=== PATIENT | female | born 1960 | race Caucasian/White ===

== ENCOUNTER 2019-07-07 02:31 | Emergency (ER) | payer MEDICAID, SELFPAY | END 2019-07-07 05:11 | disposition home or self-care (01) | PROVIDERS: Emergency Provider Emergency Medicine; Family Provider Family Medicine; Visit Provider Emergency Medicine | DX: S00.83XA Contusion of other part of head, initial encounter (principal); S00.93XA Contusion of unspecified part of head, initial encounter; Y04.8XXA Assault by other bodily force, initial encounter; Y92.009 Unspecified place in unspecified non-institutional (private) residence as the place of occurrence of the external cause; I10 Essential (primary) hypertension; E78.5 Hyperlipidemia, unspecified; E11.9 Type 2 diabetes mellitus without complications; J45.909 Unspecified asthma, uncomplicated; Z87.891 Personal history of nicotine dependence | CPT/HCPCS: 70450; 70486; 71045; 72125; 80053; 81001; 85025; 93005; 96374; 96375; 99284; J1885; J2405 ==

== ENCOUNTER → 2019-07-27 08:48 | Outpatient (BNVA) | payer MEDICAID, SELFPAY | PROVIDERS: Family Provider Family Medicine; PCP Family Medicine; Visit Provider Nurse Practitioner | DX: F33.2 Major depressive disorder, recurrent severe without psychotic features (principal) | CPT/HCPCS: 99213 ==

== ENCOUNTER → 2019-08-15 15:54 | Outpatient (BNVA) | payer MEDICAID, SELFPAY | PROVIDERS: Family Provider Family Medicine; PCP Family Medicine; Visit Provider Social Worker | DX: F33.2 Major depressive disorder, recurrent severe without psychotic features (principal); F15.20 Other stimulant dependence, uncomplicated | CPT/HCPCS: 90834 ==

== ENCOUNTER → 2019-09-07 10:22 | Outpatient (BNVA) | payer MEDICAID, SELFPAY | PROVIDERS: Family Provider Family Medicine; PCP Family Medicine; Visit Provider Nurse Practitioner | DX: F33.2 Major depressive disorder, recurrent severe without psychotic features (principal) | CPT/HCPCS: 90832; 99214 ==

== ENCOUNTER → 2019-09-18 13:51 | Outpatient (BNVA) | payer MEDICAID, SELFPAY | PROVIDERS: Family Provider Family Medicine; PCP Family Medicine; Visit Provider Social Worker | DX: F33.2 Major depressive disorder, recurrent severe without psychotic features (principal); F15.21 Other stimulant dependence, in remission | CPT/HCPCS: 90834 ==

== ENCOUNTER 2019-10-18 01:26 | Observation (INO) | payer MEDICAID, SELFPAY ==
[2019-10-18] VITALS (9 sets, daily range): BP systolic 98–154; BP diastolic 66–77; PULSE 80–91; RESP 16–22; TEMP 36.5–37; O2SAT 94–99; BMI 31.1
--- NOTE | 2019-10-18 01:31 | CTR_ITS ---
PROCEDURE INFORMATION: Exam: CT Head Without Contrast Exam date and time: 10/18/2019 1:34 AM Age: 59 years old Clinical indication: Injury or trauma; Fall; Initial encounter; Blunt trauma (contusions or hematomas); Consciousness not specified TECHNIQUE: Imaging protocol: Computed tomography of the head without contrast. Total DLP: 845.81 mGy-cm Radiation optimization: All CT scans at this facility use at least one of these dose optimization techniques: automated exposure control; mA and/or kV adjustment per patient size (includes targeted exams where dose is matched to clinical indication); or iterative reconstruction. COMPARISON: CT head wo con* [id number] 07/07/2019 3:51 AM FINDINGS: Brain: Mild hypodensities in the periventricular/deep white matter suggest chronic microvascular ischemia. Ventricles: No hydrocephalus. Bones/joints: No acute fracture. Sinuses: Unremarkable. No acute sinusitis. Mastoid air cells: No significant mastoid effusion. Soft tissues: Unremarkable. CT/CT head wo con* [id number] IMPRESSION: No acute intracranial abnormality. Radiation Dose CTDIVOL = (mGy): DLP = 845.81 (mGy-cm)
--- NOTE | 2019-10-18 01:31 | XR_ITS ---
WS: [id number] CHEST XRAY TECHNIQUE: Portable chest. CLINICAL INFORMATION: injury COMPARISON: July 07, 2019 FINDINGS: Heart: Cardiomegaly. Lungs: Lungs are clear. No consolidation or pleural effusion. Bones: Normal visualized bony structures. XR/XR chest 1V portable [id number] IMPRESSION: Cardiomegaly. No acute chest findings.
--- NOTE | 2019-10-18 01:33 | ECG_ITS ---
Measurements Intervals [place] Rate: 79 P: 55 MA: 188 QRS: 19 QRSD: 83 T: 57 QT: 409 QTc: 470 SINUS RHYTHM LOW QRS VOLTAGE IN PRECORDIAL LEADS [QRS DEFLECTION < 1.0 mV IN CHEST LEADS] SEPTAL MYOCARDIAL INFARCTION , OF INDETERMINATE AGE [40+ ms Q WAVE IN V1/V2] Compared to ECG 07/07/2019 03:01:39 No significant changes Electronically Signed On 10-18-2019 18:02:24 CDT by Noris French M.D. [email or web address]
--- NOTE | 2019-10-18 01:33 | W.ED.SYNCOPE ---
HPI - Syncope General: Chief Complaint: Chest Pain Stated Complaint: HYPOTENSION Time Seen by Provider: 10/18/19 01:31 Source: patient and EMS Mode of arrival: EMS Limitations: no limitations History of Present Illness: HPI narrative: 59-year-old female has a history of high blood pressure and is on multiple blood pressure meds at home states she has been feeling weak throughout the evening. Patient states she stood up earlier today and passed out and struck her head and her left chest. She had left chest pain since then. Patient called EMS due to weakness and was found to be hypotensive with blood pressure in the 80s. Patient given IV fluids and push dose pressure epinephrine by EMS. Blood pressure now is 120s. She states she feels improved but does have left-sided chest pain after her fall. She took her blood pressure medicines tonight. She has had nausea but no vomiting. MD complaint: loss of consciousness and felt faint Associated symptoms: Reports chest pain; Deny abdominal pain, fever(s) or nausea Review of Systems Const: Denies: fever, chills, body aches or change in appetite Eyes: Denies: blurry vision or eye discomfort ENMT: Denies: throat pain or dental pain Card: Reports: chest pain Resp: Denies: shortness of breath GI: Denies: abdominal pain, nausea, vomiting or diarrhea : Denies: painful urination Musc: Denies: neck pain or back pain Skin/Breast: Denies: rash Neuro: Reports: frequent falls Psych: Denies: depression Alton/Lymph: Denies: easy bruising All/Imm: Denies: hives [facility] [place] [facility] PFSH: Medical History (Updated 10/18/19 @ 03:56 by Melania Lopez MD) Bipolar 1 disorder, depressed Hepatitis C Hypertension Major depressive disorder, recurrent severe without psychotic features Other stimulant dependence, in remission Recurrent pancreatitis Type 2 diabetes mellitus Surgical History (Updated 10/18/19 @ 03:56 by Melania Lopez MD) History of appendectomy Family History (Updated 10/18/19 @ 03:57 by Melania Lopez MD) Mother Clotting disorder Father Diabetes Social History (Updated 10/18/19 @ 04:29 by Melania Lopez MD) Smoking and tobacco status: former smoker Alcohol intake: never Substance/Drug Use: former Household members: other Details: She takes care of her grandsons Housing: House Physical Exam Const: COMMON NORMALS: no apparent distress, oriented x3 and healthy appearing HENMT: COMMON NORMALS: normocephalic and head/scalp atraumatic HEAD & SCALP: normocephalic and atraumatic Eye: COMMON NORMALS: PERRL and EOMs intact bilaterally PUPIL: Yes PERRL Neck/C-Spine: COMMON NORMALS: full ROM and supple Chest: COMMONS NORMALS: inspection of chest normal OTHER: point tender to left ches Resp: COMMON NORMALS: normal respiratory effort, no retractions, no use of accessory muscles and clear to auscultation bilaterally AUSCULTATION: clear to auscultation bilaterally Cardio: COMMON NORMALS: regular rate, regular rhythm and no murmurs RATE: regular rate RHYTHM: regular rhythm GI: COMMON NORMALS: normal to inspection, nondistended, normoactive bowel sounds, soft to palpation, non-tender and no masses PALPATION: Yes soft Extremity: COMMON NORMALS: normal to inspection and full ROM Neuro: COMMON NORMALS: oriented x3, moves all extremities and no focal motor deficits Psych: COMMON NORMALS: mental status grossly normal, thought process normal and cooperative THOUGHT PROCESS: normal thought process Skin: COMMON NORMALS: no rashes or lesions noted and no wounds GENERAL SKIN EXAM: no rashes or lesions noted Course Vital Signs: Vital signs: Vital Signs Temperature 97.7 F 10/18/19 04:30 Pulse Rate 84 10/18/19 04:36 Respiratory Rate 16 10/18/19 04:36 Blood Pressure 113/66 10/18/19 04:36 Pulse Oximetry 94 10/18/19 04:36 MDM - Syncope MDM Narrative: Medical decision making narrative: Heidi presents here after a syncopal episode. This is likely due to hypotension. Patient has slight dehydration. Her hypotension could be related to her medicines as well. Patient has slight increase in lactate and white count will admit for observation and follow. She has no signs of infectious cause at this time. Lab Data: Labs: Lab Results 10/18/19 10/18/19 10/18/19 Range/Units 00:56 00:56 00:56 WBC 14.9 H (4.0-10.0) 10^3/ uL RBC 4.53 (4.1-5.3) 10^6/u L Hgb 14.0 (11.5-15.3) g/dL Hct 40.4 (37.0-47.0) % MCV 89.2 (81-99) fL MCH 30.9 (28.0-34.0) pg MCHC 34.7 (30.0-36.0) g/dL RDW 11.9 L (12.1-15.1) % Plt Count 351 (130-400) 10^3/c mm MPV 9.9 (7.4-10.4) fL Neut % (Auto) 56.4 % Lymph % (Auto) 32.3 % [place] % (Auto) 7.6 % Eos % (Auto) 1.6 % Baso % (Auto) 0.5 % Neut # (Auto) 8.4 H (1.8-7.7) 10^3/u L Lymph # (Auto) 4.8 (0.8-4.8) 10^3/u L Hampton # (Auto) 1.1 H (0.2-0.9) 10^3/u L Eos # (Auto) 0.2 (0.0-0.8) 10^3/u L Baso # (Auto) 0.1 (0.0-0.1) 10^3/u L Nucleated RBC % (a uto) 0 % Nucleated RBCs # 0.0 /100WBC PT 13.50 H (10.5-13.3) SECO NDS INR 1.00 (0.8-1.2) Sodium 134 L (136-145) mmol/L Potassium 4.0 (3.5-5.1) mmol/L Chloride 92 L (98-107) mmol/L Carbon Dioxide 25 (22-29) mmol/L Anion Gap 21.0 H (5-19) BUN 25 H (6-20) mg/dL Creatinine 1.4 H (0.5-0.9) mg/dL GFR Calculation 38.8 L (90-130) mL/min Glucose 141 H (65-115) mg/dL Calculated Osmolal ity 277 L (285-295) mOsm/k g Lactate (0.5-2.2) mmol/L Calcium 10.7 H (8.5-10.5) mg/dL Total Bilirubin 0.2 (0.15-1.2) mg/dL AST 21 (0-32) U/L ALT 20 (0-33) U/L Alkaline Phosphata se 87 (35-105) IU/L Troponin T Baselin e (0-10) ng/mL Troponin T 120 Min qawalangin (0-10) ng/mL Delta Troponin T (0-10) ABS# Total Protein 7.9 (6.6-8.7) g/dL Albumin 4.7 (3.5-5.2) g/dL Globulin 3.2 (1.3-4.6) g/dL Lipase 167 H (13-60) U/L Urine Color (Yellow) Urine Appearance (CLEAR) Urine pH (5-7) Ur Specific Gravit y (1.005-1.030) Urine Protein (Negative) Urine Glucose (UA) (Normal) Urine Ketones (Negative) Urine Blood (Negative) Urine Nitrate (Negative) Urine Bilirubin (NEGATIVE) Urine Urobilinogen (Negative) mg/dL Ur Leukocyte Viri ase (Negative) Urine RBC (0-2) /hpf Urine WBC (0-5) /hpf Ur Squamous Epith Cells (0-5) Urine Bacteria (NONE) Urine Yeast 10/18/19 10/18/19 10/18/19 Range/Units 00:56 02:00 03:08 WBC (4.0-10.0) 10^3/ uL RBC (4.1-5.3) 10^6/u L Hgb (11.5-15.3) g/dL Hct (37.0-47.0) % MCV (81-99) fL MCH (28.0-34.0) pg MCHC (30.0-36.0) g/dL RDW (12.1-15.1) % Plt Count (130-400) 10^3/c mm MPV (7.4-10.4) fL Neut % (Auto) % Lymph % (Auto) % [place] % (Auto) % Eos % (Auto) % Baso % (Auto) % Neut # (Auto) (1.8-7.7) 10^3/u L Lymph # (Auto) (0.8-4.8) 10^3/u L [place] # (Auto) (0.2-0.9) 10^3/u L Eos # (Auto) (0.0-0.8) 10^3/u L Baso # (Auto) (0.0-0.1) 10^3/u L Nucleated RBC % (a uto) % Nucleated RBCs # /100WBC PT (10.5-13.3) SECO NDS INR (0.8-1.2) Sodium (136-145) mmol/L Potassium (3.5-5.1) mmol/L Chloride (98-107) mmol/L Carbon Dioxide (22-29) mmol/L Anion Gap (5-19) BUN (6-20) mg/dL Creatinine (0.5-0.9) mg/dL GFR Calculation (90-130) mL/min Glucose (65-115) mg/dL Calculated Osmolal ity (285-295) mOsm/k g Lactate 3.1 H (0.5-2.2) mmol/L Calcium (8.5-10.5) mg/dL Total Bilirubin (0.15-1.2) mg/dL AST (0-32) U/L ALT (0-33) U/L Alkaline Phosphata se (35-105) IU/L Troponin T Baselin e 15 H (0-10) ng/mL Troponin T 120 Min q[place]angin 9.54 (0-10) ng/mL Delta Troponin T -5.46 L (0-10) ABS# Total Protein (6.6-8.7) g/dL Albumin (3.5-5.2) g/dL Globulin (1.3-4.6) g/dL Lipase (13-60) U/L Urine Color (Yellow) Urine Appearance (CLEAR) Urine pH (5-7) Ur Specific Gravit y (1.005-1.030) Urine Protein (Negative) Urine Glucose (UA) (Normal) Urine Ketones (Negative) Urine Blood (Negative) Urine Nitrate (Negative) Urine Bilirubin (NEGATIVE) Urine Urobilinogen (Negative) mg/dL Ur Leukocyte Viri ase (Negative) Urine RBC (0-2) /hpf Urine WBC (0-5) /hpf Ur Squamous Epith Cells (0-5) Urine Bacteria (NONE) Urine Yeast 10/18/19 Range/Units 03:20 WBC (4.0-10.0) 10^3/ uL RBC (4.1-5.3) 10^6/u L Hgb (11.5-15.3) g/dL Hct (37.0-47.0) % MCV (81-99) fL MCH (28.0-34.0) pg MCHC (30.0-36.0) g/dL RDW (12.1-15.1) % Plt Count (130-400) 10^3/c mm MPV (7.4-10.4) fL Neut % (Auto) % Lymph % (Auto) % [place] % (Auto) % Eos % (Auto) % Baso % (Auto) % Neut # (Auto) (1.8-7.7) 10^3/u L Lymph # (Auto) (0.8-4.8) 10^3/u L [place] # (Auto) (0.2-0.9) 10^3/u L Eos # (Auto) (0.0-0.8) 10^3/u L Baso # (Auto) (0.0-0.1) 10^3/u L Nucleated RBC % (a uto) % Nucleated RBCs # /100WBC PT (10.5-13.3) SECO NDS INR (0.8-1.2) Sodium (136-145) mmol/L Potassium (3.5-5.1) mmol/L Chloride (98-107) mmol/L Carbon Dioxide (22-29) mmol/L Anion Gap (5-19) BUN (6-20) mg/dL Creatinine (0.5-0.9) mg/dL GFR Calculation (90-130) mL/min Glucose (65-115) mg/dL Calculated Osmolal ity (285-295) mOsm/k g Lactate (0.5-2.2) mmol/L Calcium (8.5-10.5) mg/dL Total Bilirubin (0.15-1.2) mg/dL AST (0-32) U/L ALT (0-33) U/L Alkaline Phosphata se (35-105) IU/L Troponin T Baselin e (0-10) ng/mL Troponin T 120 Min q[place]al[place]in (0-10) ng/mL Delta Troponin T (0-10) ABS# Total Protein (6.6-8.7) g/dL Albumin (3.5-5.2) g/dL Globulin (1.3-4.6) g/dL Lipase (13-60) U/L Urine Color Yellow (Yellow) Urine Appearance Clear (CLEAR) Urine pH 5 (5-7) Ur Specific Gravit y 1.010 (1.005-1.030) Urine Protein 1+ H (Negative) Urine Glucose (UA) 1+ (Normal) Urine Ketones Negative (Negative) Urine Blood Neg (Negative) Urine Nitrate Negative (Negative) Urine Bilirubin Neg (NEGATIVE) Urine Urobilinogen Norm (Negative) mg/dL Ur Leukocyte Viri ase Trace H (Negative) Urine RBC 0-4 H (0-2) /hpf Urine WBC 0-4 H (0-5) /hpf Ur Squamous Epith Cells 25-40 H (0-5) Urine Bacteria 1+ H (NONE) Urine Yeast 1+ H Imaging Data^: CT Head: Radiologist's impression: Ordering Provider/Ordering MD: Jenaro Irwin MD Date of Service: 10/18/19 Procedure(s): CT head wo con* [id number] Accession Number(s): [id number] Report Number: [id number] PROCEDURE INFORMATION: Exam: CT Head Without Contrast Exam date and time: 10/18/2019 1:34 AM Age: 59 years old Clinical indication: Injury or trauma; Fall; Initial encounter; Blunt trauma (contusions or hematomas); Consciousness not specified TECHNIQUE: Imaging protocol: Computed tomography of the head without contrast. Total DLP: 845.81 mGy-cm Radiation optimization: All CT scans at this facility use at least one of these dose optimization techniques: automated exposure control; mA and/or kV adjustment per patient size (includes targeted exams where dose is matched to clinical indication); or iterative reconstruction. COMPARISON: CT head wo con* [id number] 07/07/2019 3:51 AM FINDINGS: Brain: Mild hypodensities in the periventricular/deep white matter suggest chronic microvascular ischemia. Ventricles: No hydrocephalus. Bones/joints: No acute fracture. Sinuses: Unremarkable. No acute sinusitis. Mastoid air cells: No significant mastoid effusion. Soft tissues: Unremarkable. CT/CT head wo con* [id number] IMPRESSION: No acute intracranial abnormality. CXR: My impression: no acute abnormality EKG Data^: EKG 1: Attestation: I personally reviewed and interpreted this EKG as follows: EKG interpretation date: 10/18/19 EKG interpretation time: 01:42 Interpretation: nsr hr [address] or t wave abnormalities qrs 83 qtc 444 EKG 2: Attestation: I personally reviewed and interpreted this EKG as follows: EKG interpretation date: 10/18/19 EKG interpretation time: 03:40 Interpretation: nsr hr [address] or t wave abnormalities qrs 81 qtc 419 Discharge Plan Discharge Patient Disposition: Home, Self-Care Clinical Impression: Syncope Qualifiers: Syncope type: unspecified Qualified Code(s): R55 - Syncope and collapse Hypotension Qualifiers: Hypotension type: unspecified hypotension type Qualified Code(s): I95.9 - Hypotension, unspecified Condition: Stable Discharge Date/Time: 10/18/19 04:37 Coding Level of Care Code ED Metal Machine Setter for Chg Fwd Exam Comprehensive
[2019-10-18] MEDS: lactated ringers 1,000 ML 999 ML IV (01:42)
[2019-10-18] MEDS: acetaminophen 325 mg Tablet 650 MG PO ×2 (01:48→11:15)
[2019-10-18 02:00] LABS: Basophils # 0.1 10^3/uL (0.0-0.1); Basophils % 0.5 %; Eosinophils # 0.2 10^3/uL (0.0-0.8); Eosinophils % 1.6 %; Hematocrit 40.4 % (37.0-47.0); Lymphocytes # 4.8 10^3/uL (0.8-4.8); Lymphocytes % 32.3 %; Mean Corpuscular HGB Conc 34.7 g/dL (30.0-36.0); Mean Corpuscular Hemoglobin 30.9 pg (28.0-34.0); Mean Corpuscular Volume 89.2 fL (81-99); Mean Platelet Volume 9.9 fL (7.4-10.4); Monocytes # 1.1 10^3/uL (0.2-0.9); Monocytes % 7.6 %; Neutrophils # 8.4 10^3/uL (1.8-7.7); Neutrophils % 56.4 %; Nucleated Red Blood Cells % 0 %; Platelet Count 351 10^3/cmm (130-400); Red Blood Count 4.53 10^6/uL (4.1-5.3); Red Cell Distribution Width 11.9 % (12.1-15.1); White Blood Count 14.9 10^3/uL (4.0-10.0)
[2019-10-18 02:18] LABS: Alanine Aminotransferase 20 U/L (0-33); Albumin Level 4.7 g/dL (3.5-5.2); Alkaline Phosphatase 87 IU/L (35-105); Aspartate Amino Transferase 21 U/L (0-32); Blood Urea Nitrogen 25 mg/dL (6-20); Calcium 10.7 mg/dL (8.5-10.5); Carbon Dioxide 25 mmol/L (22-29); Chloride 92 mmol/L (98-107); Globulin 3.2 g/dL (1.3-4.6); Glomerular Filtration Rate 38.8 mL/min (90-130); Glucose 141 mg/dL (65-115); Lipase 167 U/L (13-60); Osmolality Calculated 277 mOsm/kg (285-295); Sodium 134 mmol/L (136-145); Total Bilirubin 0.2 mg/dL (0.15-1.2); Total Protein 7.9 g/dL (6.6-8.7)
[2019-10-18 02:19] LABS: Troponin(5th) Baseline 15 ng/mL (0-10)
[2019-10-18 02:28] LABS: Lactate (Lactic Acid level) 3.1 mmol/L (0.5-2.2)
[2019-10-18] MEDS: sodium chloride 0.9% 1,000 ML 999 ML IV (03:02)
[2019-10-18 03:26] LABS: Troponin 5 2HR 9.54 ng/mL (0-10)
[2019-10-18 03:30] LABS: Urine Appearance Clear (CLEAR); Urine Color Yellow (Yellow); pH Urine 5 (5-7)
[2019-10-18 03:31] LABS: Troponin 5 2HR Delta -5.46 ABS# (0-10)
[2019-10-18 03:31] LABS: Add Urine Microscopic? YES; Bilirubin Urine Neg (NEGATIVE); Blood Urine Neg (Negative); Glucose Urine UA 1+ (Normal); Ketones Urine Negative (Negative); Leukocyte Esterase Urine Trace (Negative); Nitrate Urine Negative (Negative); Protein Urine 1+ (Negative); Urobilinogen Urine Norm (Negative)
--- NOTE | 2019-10-18 03:33 | ECG_ITS ---
Measurements Intervals [place] Rate: 77 P: 68 NV: 199 QRS: 34 QRSD: 81 T: 22 QT: 387 QTc: 441 SINUS RHYTHM LOW QRS VOLTAGE IN PRECORDIAL LEADS [QRS DEFLECTION < 1.0 mV IN CHEST LEADS] SEPTAL MYOCARDIAL INFARCTION , OF INDETERMINATE AGE [40+ ms Q WAVE IN V1/V2] Compared to ECG 07/07/2019 03:01:39 No significant changes Electronically Signed On 10-18-2019 18:11:08 CDT by Noris French M.D. [email or web address]
[2019-10-18 03:39] LABS: Bacteria Urine 1+; RBC Urine 0-4 /hpf (0-2); Squamous Epithelial Cell Urine 25-40 (0-5); WBC Urine 0-4 /hpf (0-5)
[2019-10-18 03:40] LABS: Add Urine Culture? No
--- NOTE | 2019-10-18 03:53 | PM.HP ---
Providers/Chief Complaint Primary Care Provider: Ria Pascual MD Chief Complaint: HYPOTENSION History of Present Illness Heidi Quintanilla is a 59 year old female who has history of major depressive disorder without psychotic symptoms, being treated with multiple medications including alpha 1 delilah and propanolol came in after experiencing a fall. Patient is stating that she takes care of her grandson who is 3 years old, last night they are watching television after a shower, when she tried to get up from sitting position she felt weak in her legs, she stumbled and struggled to balance herself and managed to get herself back in the bed, after few minutes she tried to get up to get something to eat for her grandson, at that time she lost consciousness and fell on the ground, she is not sure for how long she stayed on the ground however when she woke up called EMS, she did not notice any urinary or bowel incontinence, tongue bite, she did not notice any chest pain, palpitations, shortness of breath, nausea, vomiting before passing out, she is denying dysuria or diarrhea. She has history of recurrent pancreatitis, she has not noticed any active exacerbation. She is compliant with her medications. She is enjoying her daily activities with her grandson. She also has a joint custody of her granddaughter and looks forward to taking care of them. No active suicidal homicidal ideation. She has previous history of polysubstance abuse, IV drug abuse, patient is stating that she was positive for hepatitis C which resolved spontaneously. When EMS arrived at her home, her blood pressure was 80/60, without fluids EMS gave a push of epi, on arrival her systolic blood pressure was 120, she was asymptomatic, she was awake and alert. Diagnostics show mild leukocytosis with high lipase, LATISHA, dehydration When I was interviewing her her systolic blood pressure was 111/diastolic 60 mmHg, neurological exam was unremarkable, she was able to give me all the details mentioned above. Review of Systems Const: Denies: fever, chills or body aches Eyes: Denies: change in vision ENMT: Denies: throat pain Card: Denies: chest pain Resp: Denies: shortness of breath GI: Reports: abdominal pain and heartburn/indigestion; Denies: nausea, vomiting or constipation : Denies: flank pain, difficulty urinating or urinary frequency Musc: Denies: neck pain Skin/Breast: Denies: rash or itching Neuro: Denies: headache Psych: Reports: depression; Denies: anxiety or mood swings Endo: Denies: excessive urination Alton/Lymph: Denies: easy bruising All/Imm: Denies: hives Medications/Allergies Allergies Allergy/AdvReac Type Severity Reaction Status Date / Time codeine Allergy Unknown Verified 10/18/19 03:02 hydrocodone Allergy Unknown Verified 10/18/19 03:02 PFSH Acute PFSH: Medical History (Updated 10/18/19 @ 03:56 by Melania Lopez MD) Bipolar 1 disorder, depressed Hepatitis C Hypertension Major depressive disorder, recurrent severe without psychotic features Other stimulant dependence, in remission Recurrent pancreatitis Type 2 diabetes mellitus Surgical History (Updated 10/18/19 @ 03:56 by Melania Lopez MD) History of appendectomy Family History (Updated 10/18/19 @ 03:57 by Melania Lopez MD) Mother Clotting disorder Father Diabetes Social History (Updated 10/18/19 @ 04:29 by Melania Lopez MD) Smoking and tobacco status: former smoker Alcohol intake: never Substance/Drug Use: former Household members: other Details: She takes care of her grandsons Housing: House Vitals/I&O/Wt Last Vital Signs Temp 97.7 F 10/18/19 01:27 Pulse 84 10/18/19 03:23 Resp 16 10/18/19 03:23 BP 121/73 10/18/19 03:23 Pulse Ox 94 10/18/19 03:23 10/17/19 10/17/19 10/18/19 14:59 22:59 06:59 Intake Total 1000 / 1000 Balance 1000 / 1000 Weight last 48 hrs Weight 77.111 kg Physical Exam Narrative: EXAM NARRATIVE: Very pleasant female S1, S2 no sinus tachycardia Current systolic blood pressure 111 Patient is asymptomatic Neurologically nonfocal exam patient is awake alert oriented x3 GCS 15 Abdomen soft, mild tenderness in epigastric region bowel sounds present no signs of peritonitis Lungs are clear to auscultation No active suicidal homicidal ideation EOMI, PERRLA No signs of ischemia gangrene or ulcer of lower extremity Appropriate mood and affect Data : 10/18/19 00:56 10/18/19 00:56 Micro: Microbiology 10/18/19 02:00 Blood Culture - Preliminary Blood SPECIMEN COLLECTED 10/18/19 02:01 Blood Culture - Preliminary Blood SPECIMEN COLLECTED A&P Assessment and plan (1) Syncope: Status: Acute Qualifiers: Syncope type: unspecified Qualified Code(s): R55 - Syncope and collapse (2) Hypotension: Status: Acute Qualifiers: Hypotension type: unspecified hypotension type Qualified Code(s): I95.9 - Hypotension, unspecified (3) Major depressive disorder, recurrent severe without psychotic features: Status: Acute Additional A&P Information Syncope most likely secondary to polypharmacy with orthostasis I believe her syncopal event is secondary to hypotension due to propanolol, alpha 1 delilah and lisinopril combination EKG did not reveal QTC prolongation No history of MS or coronary artery disease, will get echo in the morning to rule out obstructive causes of hypotension Check TSH Drug screen Check orthostatic vitals however she had received 1 L normal saline fluid Hold benzodiazepine, prazosin, propranolol, lisinopril I would keep her on IV fluids for now Low risk for PE, will check d-dimer Abnormal lipase, history of recurrent pancreatitis: Because of recurrent pancreatitis unknown, she never had any IgG4 antibody test we will get CT abdomen Not sure if it is medication related Major depressive disorder without psychotic symptoms No active suicidal homicidal ideation I would continue SSRI and SNRI for now No active exacerbation Full code Cardiac diet DVT prophylaxis: Lovenox Attestations Medical Necessity Statement*: Anticipating discharge less than 48 hours after resolution of hypotension after fluid resuscitation, Time Spent in Patient Care: 45 Coding Level of Care Code Acute Process Technician for Renay Whittaker Diagnoses Syncope R55 Syncope type: unspecified Hypotension I95.9 Hypotension type: unspecified hypotension type Major depressive disorder, recurrent severe without psychotic features F33.2
--- NOTE | 2019-10-18 04:12 | PC.NURSE ---
Called report to Jamar on
--- NOTE | 2019-10-18 04:27 | CTR_ITS ---
PROCEDURE INFORMATION: Exam: CT Abdomen With Contrast Exam date and time: 10/18/2019 6:48 AM Age: 59 years old Clinical indication: Nausea; Prior surgery; Surgery date: 6+ months; Surgery type: Appendectomy, date of surgery not provided; Additional info: Lipase hgh TECHNIQUE: Imaging protocol: Computed tomography images of the abdomen with intravenous contrast. Total DLP: 772.81 mGy-cm Radiation optimization: All CT scans at this facility use at least one of these dose optimization techniques: automated exposure control; mA and/or kV adjustment per patient size (includes targeted exams where dose is matched to clinical indication); or iterative reconstruction. Contrast material: VISI; Contrast volume: 95 ml; Contrast route: IV; COMPARISON: CT abdomen pelvis w con* [id number] 03/24/2018 6:50 PM FINDINGS: Small calcified granuloma in the right lower lobe at the lung base. The liver, gallbladder, spleen, pancreas, and right adrenal gland are unremarkable. There is a 4.6 cm x 3.9 cm mostly fatty left adrenal mass on series 2, image 30. This is consistent with a myelolipoma and is mildly larger than prior study. There is a 1.3 cm lesion in the right kidney upper pole on series 2, image 35 with density 37 Hounsfield units. This is mildly larger than prior study. There is a 1.6 cm lesion in the right kidney lower pole on series 2, image 42 with density 28 Hounsfield units. This is similar to prior study. No dilated bowel loops, free intraperitoneal air, or free fluid identified; evaluation for these is limited without fully imaging the pelvis. Diverticulosis of the colon without visualized diverticulitis. Limited evaluation of the bladder and uterus does not demonstrate any abnormality. The abdominal aorta is nonaneurysmal. Minimal degenerative changes of the lower thoracic spine. Moderate degenerative disc disease at L5-S1. CT/CT abdomen w con* [id number] IMPRESSION: 1. Indeterminate lesion in the right kidney upper pole, mildly larger than prior study. Consider renal mass protocol CT on a nonemergent basis. 2. Large left adrenal mass, consistent with a myelolipoma, mildly larger than prior study. Radiation Dose CTDIVOL = (mGy): DLP = 772.81 (mGy-cm)
--- NOTE | 2019-10-18 04:36 | USCV_ITS ---
Heidi Quintanilla Age: 59 Gender: F : 1960 Exam Date: 10/18/2019 10:00 Ordering Phys: Melania Lopez MD Technologist: Muna Calvert [place] [facility] [place]: SYNCOPE BP: / HR: 80 Rhythm: Sinus Technical Quality: Adequate MEASUREMENTS (Male / Female) Normal Values 2D ECHO LV Diastolic Diameter PLAX 2.5 cm 4.2 - 5.9 / 3.9 - 5.3 cm LV Systolic Diameter PLAX 1.7 cm LV Chamber Size 2.7 cm IVS Diastolic Thickness 1.3 cm 0.6 - 1.0 / 0.6 - 0.9 cm IVS Systolic Thickness 1.6 cm LVPW Diastolic Thickness 2.0 cm 0.6 - 1.0 / 0.6 - 0.9 cm LVPW Systolic Thickness 1.9 cm RV Chamber Size 2.4 cm LVOT Diameter 2.0 cm LV Ejection Fraction 2D Teich 64.4 % LV Ejection Fraction MOD 2C 65.3 % LV Ejection Fraction 2C AL 65.3 % LA Diameter 3.6 cm LA Width 3.1 cm LA Height 3.7 cm Aorta at Sinotubular Diameter 2.5 cm M-MODE LV Diastolic Diameter MM 4.2 cm 4.2 - 5.9 / 3.9 - 5.3 cm LV Systolic Diameter MM 1.6 cm LV Ejection Fraction MM Teich 90.4 % IVS Diastolic Thickness MM 1.5 cm 0.6 - 1.0 / 0.6 - 0.9 cm IVS Systolic Thickness MM 2.4 cm LVPW Diastolic Thickness MM 1.5 cm 0.6 - 1.0 / 0.6 - 0.9 cm LVPW Systolic Thickness MM 1.8 cm Aortic Annulus Diameter 2.8 cm LA Ao Ratio MM 1.3 MV E Point Septal Separation 0.6 cm DOPPLER AV Peak Velocity 110.0 cm/s LVOT Peak Velocity 86.0 cm/s AV Area Cont Eq vti 3.0 cm squared AV Area Cont Eq pk 2.5 cm squared MV Area PHT 4.9 cm squared Mitral E to A Ratio 0.9 MV E' Velocity 8.0 cm/s Mitral E to MV E' Ratio 6.7 Mitral E to LV E' Lateral Ratio 7.8 Mitral E to LV E' Septal Ratio 5.9 TR Peak Velocity 115.0 cm/s TR Peak Gradient 5.3 mmHg TV Peak E Velocity 49.0 cm/s Right Atrial Pressure 3.0 mmHg Pulmonary Artery Systolic Pressu 8.3 mmHg PV Peak Velocity 75.0 cm/s RV Acceleration Time 0.1 s RV Ejection Time 0.4 s RV AcT/ET 0.4 FINDINGS Left Ventricle Normal left ventricular size, systolic function and wall thickness, with no regional wall motion abnormalities. Normal left ventricular wall thickness. Normal diastolic filling pattern. Left ventricular ejection fraction is estimated at 65% Right Ventricle The right ventricle is normal in size and function. Right Atrium The right atrium is normal in size. Left Atrium The left atrium is normal in size. Mitral Valve Structurally normal mitral valve without significant stenosis or prolapse. There is no mitral regurgitation. Aortic Valve Structurally normal aortic valve without significant sclerosis or stenosis. There is no aortic regurgitation. Tricuspid Valve Structurally normal tricuspid valve without significant stenosis or regurgitation. Pulmonary artery systolic pressure is normal. Pulmonic Valve Structurally normal pulmonic valve without significant stenosis. There is no pulmonic regurgitation. Pericardium Normal pericardium without effusion. Aorta Normal ascending aorta dimension. CONCLUSIONS Normal transthoracic echocardiogram. Dr. Bronson Estrella MD (Electronically Signed) Final Date: 18 October 2019 12:43 S
[2019-10-18 04:53] LABS: Thyroid Stimulating Hormone 2.26 uIU/mL (0.27-4.20)
[2019-10-18] MEDS: sodium chloride 0.9% 1,000 ML 30 ML IV (05:04)
[2019-10-18] MEDS: enoxaparin 40 mg/0.4 mL Syringe SUBCUT (05:05)
[2019-10-18 06:12] LABS: D Dimer <= 0.27 ug/mIFEU (0-0.59)
[2019-10-18 06:34] LABS: Glucose Point of Care 348 mg/dL (70-110)
[2019-10-18] MEDS: iodixanol 320 mg/mL 100mL Btl IV (07:15)
[2019-10-18 07:54] LABS: Amphetamines Screen Urine Negative (Negative); Barbiturates Screen Urine Negative (Negative); Benzodiazepines Screen Urine Positive (Negative); Cocaine Screen Urine Negative (Negative); Opiate Screen Urine Negative (Negative); PCP Screen Urine Negative (Negative); THC Screen Urine Negative (Negative)
[2019-10-18 08:35] LABS: Lactic Acid level (Lactate) 2.1 mmol/L (0.5-2.2)
[2019-10-18] MEDS: gabapentin 300 mg Capsule PO ×2 (09:05→14:09)
[2019-10-18] MEDS: buPROPion XL (24 HR) 300 mg Tablet PO (09:05)
[2019-10-18] MEDS: ondansetron 2 mg/ML SDV 2 mL 4 MG IVP (09:05)
[2019-10-18] MEDS: citalopram 20 mg Tablet PO (09:05)
--- NOTE | 2019-10-18 10:24 | PC.CHAP ---
Pastoral Care Encounter/Spiritual Assessment Type of Contact [] Declined field research associate visit [] Patient/Family/Request visit [] Outpatient visit [] Follow-up visit [] Physician referral [] Code/Alert [x] Routine visit [] Staff referral [] Actively dying [] Patient sleeping [] Family support [] [] Out of room [] Palliative care [] [] Receiving care in room [] Pre-surgical visit [] Trauma [] Long length of stay [] ICU visit [] Other: Relational/Emotional Strength [] Patient feels connected with others/family/visitors/staff [] Distress [] Loneliness/isolation [] Abandonment Spirituality of Patient [x] Person of Viviana [] Attends Confucianism of their Viviana [] Believes in Prayer [] Reads Bible or Orthodox materials [] There are Spiritual issues to be addressed Kiss Setter Hand Interventions [x Prayer [] Active listening [] Non-anxious presence [] Spiritual/emotional support [] Crisis/trauma care [] Spiritual counseling [] Bereavement support [] Provided bereavement packet [] Provided Bible/devotional materials [] Provided toy/stuffed animal, coloring book to patient or family member [] Provided Communion [] Anointing/[place] [] Salvation [x] Completed spiritual assessment [] Other: Impact on Illness or Injury [] Angry [] Fearful [] Anxious [] Often cries [] Exhaustion [] Unable to work [] Unable to attend voodoo [] Unable to walk/stand [] Unable to read [] Unable to drive [] Unable to eat/drink [] Unable to sleep [] Unable to be with family [] Patient intubated [] Other: Summary Patient resting well. Time spent with patient 15min
[2019-10-18 11:04] LABS: Glucose Point of Care > 600 mg/dL (70-110)
[2019-10-18 11:04] LABS: Glucose Point of Care 309 mg/dL (70-110)
[2019-10-18 11:04] LABS: Glucose Point of Care 333 mg/dL (70-110)
--- NOTE | 2019-10-18 13:30 | PM.DCS ---
Discharge Providers Date of Admission: 10/18/19 03:52 Date of Discharge: October 18, 2019 Attending Provider at Admission: Melania Lopez MD Attending Provider at Discharge: Joel Pascual MD Primary Care Provider: Ria Pascual MD Diagnoses at Discharge Discharge Diagnosis (1) Syncope: Status: Acute Problem details: Resolved. No recurrence. No arrhythmias. Thought to be secondary to multiple medications. Qualifiers: Syncope type: unspecified Qualified Code(s): R55 - Syncope and collapse (2) Hypotension: Status: Acute Problem details: See above Qualifiers: Hypotension type: unspecified hypotension type Qualified Code(s): I95.9 - Hypotension, unspecified (3) Major depressive disorder, recurrent severe without psychotic features: Status: Acute Reason for Visit Reason for Visit: Reason For Visit: HYPOTENSION Hospital Course Discharge Summary: Heidi presented to the hospital with history of syncope, low blood pressure. She was evaluated in the emergency department, and upon admission by the hospitalist. No specific etiology was found other than medication effect with concomitant mild dehydration. She was hydrated. Urine drug screen was obtained was negative. Telemetry demonstrated no arrhythmia. The afternoon of October 17 she was feeling much better. She denied any dizziness. We discussed significant medication changes to reduce risk. Her lisinopril, prazosin will be discontinued for now. Propranolol will be continued but at lower dose. She will follow-up with her primary care provider. Fluids were encouraged. BMP on follow-up. Other studies done while in the hospital included an echocardiogram, which was normal. 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 An indeterminate lesion right kidney upper pole, slightly larger. This can be followed up as an outpatient by her primary care provider. I discussed this in detail with the patient. Head CT and chest x-ray were also done which were normal. Physical Exam Narrative: EXAM NARRATIVE: General exam no apparent distress Cardiovascular regular rate and rhythm without murmur Lungs clear Abdomen is soft positive bowel sounds Extremities no cyanosis clubbing or edema Discharge Data Data Completed and Pending: Completed Studies During Hospitalization Category Date Time Status CT abdomen w con* [id number] Stat Cat Scan 10/18/19 04:[address] head wo con* [id number] Urgent Cat Scan 10/18/19 01:31 Completed XR chest 1V sanjuana ble [id number] Urgent Exams 10/18/19 01:31 Completed CV echo complete* [id number] Routine Ultrasound 10/18/19 04:36 Completed Pending at discharge Category Date Time Status Blood Culture Sta t Lab 10/18/19 02:00 Results Complete Blood Co unt w/Auto AM LABS Lab 10/19/19 04:00 Ordered Lipase AM LABS Lab 10/19/19 04:00 Ordered Labs from last 24 hours 10/18/19 10/18/19 10/18/19 11:00 10:58 10:52 WBC RBC Hgb Hct MCV MCH MCHC RDW Plt Count MPV Neut % (Auto) Lymph % (Auto) [place] % (Auto) Eos % (Auto) Baso % (Auto) Neut # (Auto) Lymph # (Auto) [place] # (Auto) Eos # (Auto) Baso # (Auto) Nucleated RBC % (a uto) Nucleated RBCs # PT INR D-Dimer Sodium Potassium Chloride Carbon Dioxide Anion Gap BUN Creatinine GFR Calculation Glucose POC Glucose 333 309 > 600 Calculated Osmolal ity Lactic Acid (Sepsi s) Lactate Calcium Total Bilirubin AST ALT Alkaline Phosphata se Troponin T Baselin e Troponin T 120 Min [place] Troponin T Total Protein Albumin Globulin Lipase TSH Urine Color Urine Appearance Urine pH Ur Specific Gravit y Urine Protein Urine Glucose (UA) Urine Ketones Urine Blood Urine Nitrate Urine Bilirubin Urine Urobilinogen Ur Leukocyte Viri ase Urine RBC Urine WBC Ur Squamous Epith Cells Urine Bacteria Urine Yeast Urine Opiates Scre en Ur Barbiturates Sc reen Ur Phencyclidine S crn Ur Amphetamines Sc reen U Benzodiazepines Scrn Urine Cocaine Scre en U Marijuana (THC) Screen 10/18/19 10/18/19 10/18/19 08:14 07:25 06:18 WBC RBC Hgb Hct MCV MCH MCHC RDW Plt Count MPV Neut % (Auto) Lymph % (Auto) [place] % (Auto) Eos % (Auto) Baso % (Auto) Neut # (Auto) Lymph # (Auto) [place] # (Auto) Eos # (Auto) Baso # (Auto) Nucleated RBC % (a uto) Nucleated RBCs # PT INR D-Dimer Sodium Potassium Chloride Carbon Dioxide Anion Gap BUN Creatinine GFR Calculation Glucose POC Glucose 348 Calculated Osmolal ity Lactic Acid (Sepsi s) 2.1 Lactate Calcium Total Bilirubin AST ALT Alkaline Phosphata se Troponin T Baselin e Troponin T 120 Min [place] Troponin T Total Protein Albumin Globulin Lipase TSH Urine Color Urine Appearance Urine pH Ur Specific Gravit y Urine Protein Urine Glucose (UA) Urine Ketones Urine Blood Urine Nitrate Urine Bilirubin Urine Urobilinogen Ur Leukocyte Viri ase Urine RBC Urine WBC Ur Squamous Epith Cells Urine Bacteria Urine Yeast Urine Opiates Scre en Negative Ur Barbiturates Sc reen Negative Ur Phencyclidine S crn Negative Ur Amphetamines Sc reen Negative U Benzodiazepines Scrn Positive H Urine Cocaine Scre en Negative U Marijuana (THC) Screen Negative 10/18/19 10/18/19 10/18/19 03:20 03:08 03:08 WBC RBC Hgb Hct MCV MCH MCHC RDW Plt Count MPV Neut % (Auto) Lymph % (Auto) [place] % (Auto) Eos % (Auto) Baso % (Auto) Neut # (Auto) Lymph # (Auto) [place] # (Auto) Eos # (Auto) Baso # (Auto) Nucleated RBC % (a uto) Nucleated RBCs # PT INR D-Dimer Sodium Potassium Chloride Carbon Dioxide Anion Gap BUN Creatinine GFR Calculation Glucose POC Glucose Calculated Osmolal ity Lactic Acid (Sepsi s) Lactate Calcium Total Bilirubin AST ALT Alkaline Phosphata se Troponin T Baselin e Troponin T 120 Min [place] 9.54 [place] Troponin T -5.46 L Total Protein Albumin Globulin Lipase TSH 2.26 Urine Color Yellow Urine Appearance Clear Urine pH 5 Ur Specific Gravit y 1.010 Urine Protein 1+ H Urine Glucose (UA) 1+ Urine Ketones Negative Urine Blood Neg Urine Nitrate Negative Urine Bilirubin Neg Urine Urobilinogen Norm Ur Leukocyte Viri ase Trace H Urine RBC 0-4 H Urine WBC 0-4 H Ur Squamous Epith Cells 25-40 H Urine Bacteria 1+ H Urine Yeast 1+ H Urine Opiates Scre en Ur Barbiturates Sc reen Ur Phencyclidine S crn Ur Amphetamines Sc reen U Benzodiazepines Scrn Urine Cocaine Scre en U Marijuana (THC) Screen 10/18/19 10/18/19 10/18/19 02:00 00:56 00:56 WBC RBC Hgb Hct MCV MCH MCHC RDW Plt Count MPV Neut % (Auto) Lymph % (Auto) [place] % (Auto) Eos % (Auto) Baso % (Auto) Neut # (Auto) Lymph # (Auto) [place] # (Auto) Eos # (Auto) Baso # (Auto) Nucleated RBC % (a uto) Nucleated RBCs # PT INR D-Dimer <= 0.27 Sodium Potassium Chloride Carbon Dioxide Anion Gap BUN Creatinine GFR Calculation Glucose POC Glucose Calculated Osmolal ity Lactic Acid (Sepsi s) Lactate 3.1 H Calcium Total Bilirubin AST ALT Alkaline Phosphata se Troponin T Baselin e 15 H Troponin T 120 Min [place] Troponin T Total Protein Albumin Globulin Lipase TSH Urine Color Urine Appearance Urine pH Ur Specific Gravit y Urine Protein Urine Glucose (UA) Urine Ketones Urine Blood Urine Nitrate Urine Bilirubin Urine Urobilinogen Ur Leukocyte Viri ase Urine RBC Urine WBC Ur Squamous Epith Cells Urine Bacteria Urine Yeast Urine Opiates Scre en Ur Barbiturates Sc reen Ur Phencyclidine S crn Ur Amphetamines Sc reen U Benzodiazepines Scrn Urine Cocaine Scre en U Marijuana (THC) Screen 10/18/19 10/18/19 10/18/19 00:56 00:56 00:56 WBC 14.9 H RBC 4.53 Hgb 14.0 Hct 40.4 MCV 89.2 MCH 30.9 MCHC 34.7 RDW 11.9 L Plt Count 351 MPV 9.9 Neut % (Auto) 56.4 Lymph % (Auto) 32.3 [place] % (Auto) 7.6 Eos % (Auto) 1.6 Baso % (Auto) 0.5 Neut # (Auto) 8.4 H Lymph # (Auto) 4.8 [place] # (Auto) 1.1 H Eos # (Auto) 0.2 Baso # (Auto) 0.1 Nucleated RBC % (a uto) 0 Nucleated RBCs # 0.0 PT 13.50 H INR 1.00 D-Dimer Sodium 134 L Potassium 4.0 Chloride 92 L Carbon Dioxide 25 Anion Gap 21.0 H BUN 25 H Creatinine 1.4 H GFR Calculation 38.8 L Glucose 141 H POC Glucose Calculated Osmolal ity 277 L Lactic Acid (Sepsi s) Lactate Calcium 10.7 H Total Bilirubin 0.2 AST 21 ALT 20 Alkaline Phosphata se 87 Troponin T Baselin e Troponin T 120 Min [place] Troponin T Total Protein 7.9 Albumin 4.7 Globulin 3.2 Lipase 167 H TSH Urine Color Urine Appearance Urine pH Ur Specific Gravit y Urine Protein Urine Glucose (UA) Urine Ketones Urine Blood Urine Nitrate Urine Bilirubin Urine Urobilinogen Ur Leukocyte Viri ase Urine RBC Urine WBC Ur Squamous Epith Cells Urine Bacteria Urine Yeast Urine Opiates Scre en Ur Barbiturates Sc reen Ur Phencyclidine S crn Ur Amphetamines Sc reen U Benzodiazepines Scrn Urine Cocaine Scre en U Marijuana (THC) Screen Vitals: Last Vital Signs Temp 98.6 F 10/18/19 11:13 Pulse 80 10/18/19 11:13 Resp 16 10/18/19 11:13 BP 132/76 10/18/19 11:13 Pulse Ox 97 10/18/19 11:13 Discharge Plan Discharge Patient Disposition: Home, Self-Care Condition: Stable Prescriptions: New propranolol 80 mg capsule,extended release 24hr 80 mg PO Q24H Qty: 30 RF: 0 Continued Tresiba U-100 Insulin 100 unit/mL solution 56 unit SUBCUT BID RF: 0 omega 2-jxx-mmy-fish oil [Fish Oil] 1,000 mg (120 mg-180 mg) capsule 2 cap PO BID RF: 0 gabapentin 300 mg capsule 300 mg PO TID RF: 0 fenofibrate nanocrystallized 48 mg tablet 48 mg PO DAILY RF: 0 Senna Plus 8.6-50 mg capsule 1 tab-cap PO BID PRN (Reason: Constipation) RF: 0 vo-cv-ozjf-FA-Ca carb-vit K 18 mg iron-400 mcg-500 mg tablet 1 tab PO DAILY RF: 0 quetiapine [Seroquel] 50 mg tablet 50 mg PO .HS Qty: 30 RF: 0 bupropion HCl [Wellbutrin XL] 300 mg tablet extended release 24 hr 300 mg PO DAILY Qty: 30 RF: 0 citalopram [Celexa] 20 mg tablet 20 mg PO DAILY Qty: 30 RF: 0 lorazepam 1 mg tablet 1 mg PO TID PRN (Reason: anxiety) Qty: 90 RF: 0 Discontinued lisinopril 10 mg tablet 10 mg PO DAILY RF: 0 propranolol 120 mg capsule,extended release 24 hr 120 mg PO .QHS RF: 0 bupropion HCl [Wellbutrin XL] 150 mg tablet extended release 24 hr 150 mg PO DAILY Qty: 30 RF: 0 prazosin 2 mg capsule 2 mg PO .QHS Qty: 30 RF: 0 Discharge Orders: Discharge Order (Routine); Ordered 10/18/19 Ordered By: Joel Pascual Other Ambulatory Orders: DME: Evin (Order) Location: None Selected Ordered By: Joel Pascual Referrals: [facility] [place] [Outside] (A walker has been pre-approved through your insurance and the order was sent to [facility] If you have any questions or concerns you may call them at the number provided. You may also call [facility] [place] Case Management at [phone]. [phone] if you have any questions.) Ria Pascual MD [Primary Care Provider] - 4-7 days (BMP on follow up) Discharge Diet: Usual diet Discharge Activity: Resume usual activity Activity Restrictions/Additional Instructions: Encourage fluids Note many of your medications have been discontinued or reduced Follow-up with your primary care provider 3 to 5 days with BMP Discharge Attestations Time Spent in Discharge Care*: greater than 30 min Quality Metrics Clinical Quality Measures During this hospital stay, did patient experience: None Coding Level of Care Code Acute Ramp Service Man for Renay Fwd Diagnoses Syncope R55 Syncope type: unspecified Hypotension I95.9 Hypotension type: unspecified hypotension type Major depressive disorder, recurrent severe without psychotic features F33.2
--- NOTE | 2019-10-18 14:36 | PC.SOCIAL ---
per Carly in pharmacy [facility] will not cover Propranalol 80mg Extended Release. Spoke with Dr Gautam Pascual and he has changed order to 40mg BID. Notified Carly at pharmacy and called [facility] patient care nurse to update patient of the changed. DC papers have been given but patient has not left floor yet.
== END 2019-10-18 15:10 | disposition home or self-care (01) ==
LOC: ER 03:53 → MEDSURG 04:05
PROVIDERS: Admitting Provider Internal Medicine; Emergency Provider Emergency Medicine; Family Provider Family Medicine; PCP Family Medicine; Visit Provider Internal Medicine
DX: R55 Syncope and collapse (principal); I95.9 Hypotension, unspecified; F33.2 Major depressive disorder, recurrent severe without psychotic features; E11.9 Type 2 diabetes mellitus without complications; F15.21 Other stimulant dependence, in remission; I10 Essential (primary) hypertension; Z86.19 Personal history of other infectious and parasitic diseases; Z82.49 Family history of ischemic heart disease and other diseases of the circulatory system; Z83.3 Family history of diabetes mellitus
CPT/HCPCS: 12345; 36415; 36416; 70450; 71045; 74160; 80053; 80306; 81001; 82962; 83605; 83690; 84443; 84484; 85025; 85378; 85610; 87040; 93005; 93306; 96360; 96361; 96365; 96372; 96375; 99284; 99285; G0378; J1650; J1815; J2405; J7030; Q9967

== ENCOUNTER → 2019-11-06 08:25 | Outpatient (BNVA) | payer MEDICAID, SELFPAY | PROVIDERS: Family Provider Family Medicine; PCP Family Medicine; Visit Provider Social Worker | DX: F33.2 Major depressive disorder, recurrent severe without psychotic features (principal); F15.20 Other stimulant dependence, uncomplicated | CPT/HCPCS: 90834 ==

== ENCOUNTER 2019-12-07 12:44 | Outpatient (CLI) | payer MEDICAID, SELFPAY ==
--- NOTE | 2019-12-07 12:51 | CT_ITS ---
WS: [id number] CT ABDOMEN NON-CONTRAST PLUS CONTRAST TECHNIQUE: Noncontrast CT of the abdomen and contrast-enhanced CT of the abdomen with coronal and sag ittal reformatted images. CLINICAL INFORMATION: RENAL MASS RIGHT COMPARISON: October 18, [address] March 24, 2018. Ultrasound April 13, 2018. Additional CT abdo men pelvis studies dated back to 2016 DLP: [address] scans at [facility] use at least one of these dose optimization techniques: automat ed exposure control; mA and/or kV adjustment per patient size (includes targeted exams where dose is matched to clinical indication); or iterative reconstruction. FINDINGS: Ovoid fatty left adrenal lesion is unchanged since the prior examination measuring 3.8 x 3.2 cm consi stent with adrenal myelolipoma. This was present dating back to 2013 where it measured approximately 2.0 x 2.2 CM. Mild diffuse fatty infiltration of the liver. Normal portal vein and splenic vein. Gallbladder is con tracted. Right adrenal gland is normal. Normal renal parenchymal enhancement. No hydronephrosis. Smal l right renal cysts the largest measuring 1.3 cm. Tiny cyst lower pole left kidney. Normal GE junction. Small splenule. Normal pancreas. Normal caliber upper abdominal aorta. Aortic enoc cification. Lung bases are well aerated. 2-3 tiny subpleural nodules in the right and left lung base the largest in the right lung base measuring 2.7 mm. Shotty periaortic and retroperitoneal lymph nodes. No lymphadenopathy. Normal visualized ureters on t he delayed imaging. Pelvis is not included on this examination. Mild lumbar curve. Disc space narrowi ng L5-S1. Advanced facet arthropathy L5-S1. CT/CT abdomen wo/w con [id number] IMPRESSION: 1. Left adrenal myelolipoma measures 3.8 x 3.2 cm slightly increased in size s donta 2013. 2. A few small simple appearing right renal cysts largest measuring 1.3 CM. 3. No hydronephrosis in either kidney. Normal renal parenchymal enhancement. 4. Diffuse fatty infiltration of the liver. Gallbladder is contracted. 5. A few tiny subpleural nodules in the lung bases the largest in the right lo wer lobe measuring 2.7 mm. Recommend further evaluation of the chest with nonco ntrast chest CT.
[2019-12-07] MEDS: iodixanol 320 mg/mL 100mL Btl IV (14:10)
== END 2019-12-07 12:45 | disposition home or self-care (01) ==
LOC: RADWPI 12:48
PROVIDERS: Family Provider Family Medicine; PCP Family Medicine; Visit Provider Family Medicine
DX: N28.89 Other specified disorders of kidney and ureter (principal); D35.02 Benign neoplasm of left adrenal gland; N28.1 Cyst of kidney, acquired; K76.0 Fatty (change of) liver, not elsewhere classified; R91.1 Solitary pulmonary nodule
CPT/HCPCS: 74170; Q9967

== ENCOUNTER 2019-12-21 15:04 | Outpatient (CLI) | payer MEDICAID, SELFPAY ==
--- NOTE | 2019-12-21 15:12 | CT_ITS ---
WS: [id number] CT CHEST TECHNIQUE: Noncontrast CT of the chest with coronal and sagittal reformatted images. CLINICAL INFORMATION: LUNG NODULES MULTIPLE COMPARISON: CT abdomen pelvis December 07, 2019 DLP: 940.[address] scans at [facility] use at least one of these dose optimization techniques: automat ed exposure control; mA and/or kV adjustment per patient size (includes targeted exams where dose is matched to clinical indication); or iterative reconstruction. FINDINGS: Both lungs are well aerated. No acute pulmonary infiltrates. No focal pneumonia. No pleural fluid. No ncalcified nodules in the right upper lobe measuring 3.9 mm and 5.0 mm. Calcific granuloma right lowe r lobe. Calcified granuloma left upper lobe. Hazy 4 mm subpleural nodule in the left lower lobe. Thyroid gland is normal. No mediastinal or hilar lymphadenopathy. Calcified paratracheal lymph nodes. Fatty lesion left adrenal gland consistent with myelolipoma measuring 4.3 x 3.9 cm. Gland is normal. Normal GE junction. No axillary lymphadenopathy. Hypertrophic changes thoracic spine . Benign-appearing sclerotic lesion T9. CT/CT chest wo con [id number] IMPRESSION: 1. A few noncalcified pulmonary nodules described above. Recommend 6 month fol low-up. The largest measures 5 mm. 2. No acute pulmonary infiltrates. 3. No mediastinal or hilar lymphadenopathy. 4. Fatty lesion left adrenal gland partially included consistent with adrenal myolipoma measuring 3.9 x 4.3 cm.
== END 2019-12-21 15:05 | disposition home or self-care (01) ==
LOC: RADWPI 15:06
PROVIDERS: Family Provider Family Medicine; PCP Family Medicine; Visit Provider Family Medicine
DX: R91.8 Other nonspecific abnormal finding of lung field (principal); D49.7 Neoplasm of unspecified behavior of endocrine glands and other parts of nervous system
CPT/HCPCS: 71250

== ENCOUNTER → 2019-12-22 07:34 | Outpatient (BNVA) | payer MEDICAID, SELFPAY | PROVIDERS: Family Provider Family Medicine; PCP Family Medicine; Visit Provider Nurse Practitioner | DX: F33.2 Major depressive disorder, recurrent severe without psychotic features (principal); F41.1 Generalized anxiety disorder | CPT/HCPCS: 99214 ==

== ENCOUNTER → 2020-01-24 08:26 | Outpatient (BNVA) | payer MEDICAID, SELFPAY | PROVIDERS: Family Provider Family Medicine; PCP Family Medicine; Visit Provider Counselor Professional | DX: F33.2 Major depressive disorder, recurrent severe without psychotic features (principal) | CPT/HCPCS: 90834 ==

== ENCOUNTER → 2020-02-06 07:42 | Outpatient (BNVA) | payer MEDICAID, SELFPAY | PROVIDERS: Family Provider Family Medicine; PCP Family Medicine; Visit Provider Nurse Practitioner | DX: F33.2 Major depressive disorder, recurrent severe without psychotic features (principal) | CPT/HCPCS: 90832; 99213 ==

== ENCOUNTER 2020-02-26 12:34 | Emergency (ER) | payer MEDICAID, SELFPAY ==
[2020-02-26 12:40] VITALS: BP 168/98; PULSE 99; RESP 18; TEMP 37.1; O2SAT 97; BMI 32.9
--- NOTE | 2020-02-26 13:14 | W.ED.EXTPRO ---
HPI - Extremity Problem General: Chief complaint: Extremity Problem,Nontraumatic Stated complaint: left leg swelling/reddness Time Seen by Provider: 02/26/20 12:51 Source: patient Limitations: no limitations History of Present Illness: HPI Narrative: Patient states that about 4 days ago she was covered in seed ticks and subsequently had developed an area on her left lateral leg that is swollen, red and has opened up. It is painful but she has no drainage. Because the wound is not improving she is here to be evaluated. She denies any fever. She has a prior history of MRSA MD Complaint: extremity pain and extremity swelling Onset (ago): day(s) (4) Pain Consistency: constant Location: left Associated symptoms: Deny fever(s) or rash Review of Systems General: Reports: 10 or more systems reviewed and unremarkable except in HPI and below Const: Denies: fever(s), chills or body aches Eyes: Denies: change in vision or blurry vision ENMT: Denies: throat pain, enlarged tonsils, odynophagia, hoarseness, mouth pain or swelling of lips/tongue Card: Denies: palpitations, irregular heart rhythm, edema or swelling of feet/ankles Resp: Denies: dyspnea, productive cough or non-productive cough GI: Denies: abdominal pain, nausea or vomiting : Denies: flank pain, difficulty voiding, dysuria, urinary frequency, urinary urgency or urinary hesitancy Musc: Denies: neck pain, back pain or extremity swelling Skin/Breast: Reports: sores; Denies: rash, pruritus or erythema Neuro: Denies: headache(s), numbness in extremities or weakness in extremities Endo: Denies: polyuria, polydipsia or tired all the time PFSH ED PFSH: Medical History (Reviewed 02/26/20 @ 13:48 by Juno Brewer MD, [facility] – [place]) Bipolar 1 disorder, depressed Hepatitis C Hypertension Major depressive disorder, recurrent severe without psychotic features Other stimulant dependence, in remission Recurrent pancreatitis Type 2 diabetes mellitus Surgical History History of appendectomy Family History Mother Clotting disorder Father Diabetes Social History (Reviewed 02/26/20 @ 13:48 by Juno Brewer MD, [facility] [place]) Smoking and tobacco status: former smoker Alcohol intake: never Household members: other Details: She takes care of her grandsons Housing: House Physical Exam Const: COMMON NORMALS: no acute distress, average body habitus, patient oriented x3, no limitations, healthy appearing, alert and well nourished Neck/C-Spine: COMMON NORMALS: no meningeal signs and no JVD Resp: COMMON NORMALS: normal respiratory effort, No retractions, No use of accessory muscles, clear to auscultation bilaterally and percussion normal AUSCULTATION: clear to auscultation bilaterally PERCUSSION: percussion normal Cardio: COMMON NORMALS: no JVD, regular rate, regular rhythm, S1 normal heart sound present, S2 normal heart sound present, No gallops present (Cardio), No clicks present (Cardio), No murmurs present (Cardio), No rub (Cardio) and Peripheral pulses 2+ throughout RATE: regular rate RHYTHM: regular rhythm HEART SOUNDS: S1 normal heart sound present and S2 normal heart sound present PERIPHERAL PULSES: Peripheral pulses 2+ throughout GI: COMMON NORMALS: Normal to inspection, nondistended, normoactive bowel sounds present, Soft to palpation, non-tender, No hepatosplenomegaly present, no masses and no bruits PALPATION: Yes Soft to palpation and Yes No hepatosplenomegaly present Extremity: COMMON NORMALS: normal to inspection, full ROM, capillary refill normal, no calf tenderness and no pedal edema Neuro: COMMON NORMALS: patient oriented x3 SENSORIUM/ORIENTATION: Yes alert MENINGEAL SIGNS: Yes no meningeal signs Skin: COMMON NORMALS: no wounds, turgor normal, no jaundice, no petechiae and no mottling GENERAL SKIN EXAM: turgor normal WOUNDS: Yes wounds noted (There is a 0.5 cm open area on the left lateral leg, with surrounding erythema about 2 cm. There is some induration under the swelling but no fluctuance and no drainage or squeezing.) size (0.5 cm), drainage (None) and open Course Vital Signs: Vital signs: Vital Signs Temperature 98.7 F 02/26/20 12:40 Pulse Rate 91 02/26/20 13:17 Respiratory Rate 18 02/26/20 13:17 Blood Pressure 172/99 02/26/20 13:17 Pulse Oximetry 96 02/26/20 13:17 MDM - Extremity (Nontraumatic) MDM Narrative: Medical decision making narrative: Patient with cellulitis at the area of the tick bite. She has a history of MRSA. She has no systemic symptoms. There is nothing to drain from the wounds when I&D was not performed. She is discharged home on oral doxycycline to cover possible MRSA and tickborne illness since she was bit by ticks. Discharge Plan Discharge Patient Disposition: Home Clinical Impression: At high risk for tick borne illness Cellulitis Qualifiers: Site of cellulitis: extremity Site of cellulitis of extremity: lower extremity Laterality: left Qualified Code(s): L03.116 - Cellulitis of left lower limb Tick bite Qualifiers: Encounter type: initial encounter Qualified Code(s): W57.XXXA - Bitten or stung by nonvenomous insect and other nonvenomous arthropods, initial encounter Condition: Stable Prescriptions: New doxycycline hyclate 100 mg tablet 100 mg PO BID 7 Days Qty: 14 RF: 0 Continued omega 9-fcy-kcj-fish oil [Fish Oil] 1,000 mg (120 mg-180 mg) capsule 2 cap PO BID RF: 0 gabapentin 300 mg capsule 300 mg PO TID RF: 0 fenofibrate nanocrystallized 48 mg tablet 48 mg PO DAILY RF: 0 Senna Plus 8.6-50 mg capsule 1 tab-cap PO BID PRN (Reason: Constipation) RF: 0 cu-pg-gcae-FA-Ca carb-vit K 18 mg iron-400 mcg-500 mg tablet 1 tab PO DAILY RF: 0 bupropion HCl [Wellbutrin XL] 300 mg tablet extended release 24 hr 300 mg PO DAILY Qty: 30 RF: 2 citalopram [Celexa] 20 mg tablet 20 mg PO DAILY Qty: 30 RF: 2 lorazepam 1 mg tablet 1 mg PO BID PRN (Reason: anxiety) Qty: 60 RF: 2 quetiapine [Seroquel] 50 mg tablet 50 mg PO .HS Qty: 30 RF: 2 bupropion HCl [Wellbutrin XL] 150 mg tablet extended release 24 hr 150 mg PO QAM Qty: 30 RF: 2 propranolol 80 mg capsule,extended release 24hr 80 mg PO Q24H Qty: 30 RF: 0 Discharge Orders: Discharge Order (Routine); Ordered 02/26/20 Ordered By: Juno Brewer Referrals: Ria Pascual MD [Primary Care Provider] - 4-7 days (for wound check) Patient Instructions: Cellulitis (ED), Tick Bite (ED) Activity Restrictions/Additional Instructions: Return for any new or worsening symptoms. Clean the wound daily with soap and water and cover with antibiotic ointment. Follow-up with your primary care provider within 1 week for wound reevaluation. Take the antibiotics as prescribed. Coding Level of Care Code ED Salesforce Trainer for Renay Whittaker
[2020-02-26 13:17] VITALS: BP 172/99; PULSE 91; RESP 18; O2SAT 96
--- NOTE | 2020-02-26 13:46 | PC.NURSE ---
PT WOUND IRRIGATED WITH NS AND CLEANSED WIPED WITH 4X4 PER DR. BETANCOURT'S VO WITH READBACK. THEN TELFA APPLIED.
[2020-02-27 13:05] LABS: Lyme AB Screen <0.90 index
[2020-02-29 17:14] LABS: RMSF IGG NOT DETECTED; RMSF IGM NOT DETECTED
[2020-02-29 21:29] LABS: E. Chaffeensis AB IGG <1:64; E. Chaffeensis AB IGM <1:20
== END 2020-02-26 13:52 | disposition home or self-care (01) ==
PROVIDERS: Emergency Provider Family Medicine; PCP Family Medicine
DX: L03.116 Cellulitis of left lower limb (principal); S80.862A Insect bite (nonvenomous), left lower leg, initial encounter; W57.XXXA Bitten or stung by nonvenomous insect and other nonvenomous arthropods, initial encounter; Z86.19 Personal history of other infectious and parasitic diseases; I10 Essential (primary) hypertension; E11.9 Type 2 diabetes mellitus without complications; Z87.891 Personal history of nicotine dependence
CPT/HCPCS: 12345; 36415; 86618; 86666; 86757; 99281; 99282

== ENCOUNTER → 2020-02-29 09:49 | Outpatient (BNVA) | payer MEDICAID, SELFPAY | PROVIDERS: Family Provider Family Medicine; PCP Family Medicine; Visit Provider Counselor Professional | DX: F33.2 Major depressive disorder, recurrent severe without psychotic features (principal) | CPT/HCPCS: 90834 ==

== ENCOUNTER → 2020-03-04 11:59 | Outpatient (BNVA) | payer OTHER, SELFPAY | PROVIDERS: Family Provider Family Medicine; PCP Family Medicine; Visit Provider Nurse Practitioner | DX: F33.2 Major depressive disorder, recurrent severe without psychotic features (principal); Z79.899 Other long term (current) drug therapy | CPT/HCPCS: 80061; 83036; 83721 ==

== ENCOUNTER → 2020-03-13 09:45 | Outpatient (BNVA) | payer MEDICAID, SELFPAY ==
[2020-03-05 13:07] VITALS: BP 152/88; BMI 33.9
== END ==
PROVIDERS: Family Provider Family Medicine; PCP Family Medicine; Visit Provider Counselor Professional
DX: F33.2 Major depressive disorder, recurrent severe without psychotic features (principal)
CPT/HCPCS: 90834

== ENCOUNTER → 2020-04-09 07:36 | Outpatient (BNVA) | payer MEDICAID, SELFPAY ==
[2020-03-05 13:07] VITALS: BP 152/88; BMI 33.9
== END ==
PROVIDERS: Family Provider Family Medicine; PCP Family Medicine; Visit Provider Nurse Practitioner
DX: F33.2 Major depressive disorder, recurrent severe without psychotic features (principal)
CPT/HCPCS: 99214

== ENCOUNTER → 2020-05-09 08:41 | Outpatient (BNVA) | payer MEDICAID, SELFPAY ==
[2020-03-05 13:07] VITALS: BP 152/88; BMI 33.9
== END ==
PROVIDERS: Family Provider Family Medicine; PCP Family Medicine; Visit Provider Counselor Professional
DX: F33.2 Major depressive disorder, recurrent severe without psychotic features (principal)
CPT/HCPCS: 90834

== ENCOUNTER → 2020-05-27 07:50 | Outpatient (BNVA) | payer MEDICAID, SELFPAY ==
[2020-03-05 13:07] VITALS: BP 152/88; BMI 33.9
== END ==
PROVIDERS: Family Provider Family Medicine; PCP Family Medicine; Visit Provider Counselor Professional
DX: F33.2 Major depressive disorder, recurrent severe without psychotic features (principal)
CPT/HCPCS: 90834

== ENCOUNTER → 2020-06-17 08:19 | Outpatient (BNVA) | payer MEDICAID, SELFPAY ==
[2020-05-27 09:53] VITALS: BP 152/88; BMI 33.9
== END ==
PROVIDERS: Family Provider Family Medicine; PCP Family Medicine; Visit Provider Counselor Professional
DX: F33.2 Major depressive disorder, recurrent severe without psychotic features (principal)
CPT/HCPCS: 90834

== ENCOUNTER → 2020-06-25 09:40 | Outpatient (BNVA) | payer MEDICAID, SELFPAY ==
[2020-05-27 09:53] VITALS: BP 152/88; BMI 33.9
== END ==
PROVIDERS: Family Provider Family Medicine; PCP Family Medicine; Visit Provider Nurse Practitioner
DX: F33.2 Major depressive disorder, recurrent severe without psychotic features (principal)
CPT/HCPCS: 99213

== ENCOUNTER → 2020-07-01 07:43 | Outpatient (BNVA) | payer MEDICAID, SELFPAY ==
[2020-05-27 09:53] VITALS: BP 152/88; BMI 33.9
== END ==
PROVIDERS: Family Provider Family Medicine; PCP Family Medicine; Visit Provider Counselor Professional
DX: F33.2 Major depressive disorder, recurrent severe without psychotic features (principal)
CPT/HCPCS: 90834

== ENCOUNTER → 2020-07-23 09:02 | Outpatient (BNVA) | payer MEDICAID, SELFPAY ==
[2020-07-01 09:50] VITALS: BP 152/88; BMI 33.9
== END ==
PROVIDERS: Family Provider Family Medicine; PCP Family Medicine; Visit Provider Counselor Professional
DX: F33.2 Major depressive disorder, recurrent severe without psychotic features (principal)
CPT/HCPCS: 90834

== ENCOUNTER → 2020-08-08 08:15 | Outpatient (BNVA) | payer MEDICAID, SELFPAY ==
[2020-07-01 09:50] VITALS: BP 152/88; BMI 33.9
== END ==
PROVIDERS: Family Provider Family Medicine; PCP Family Medicine; Visit Provider Counselor Professional
DX: F33.2 Major depressive disorder, recurrent severe without psychotic features (principal)
CPT/HCPCS: 90834

== ENCOUNTER → 2020-09-17 07:34 | Outpatient (BNVA) | payer MEDICAID, SELFPAY ==
[2020-07-01 09:50] VITALS: BP 152/88; BMI 33.9
== END ==
PROVIDERS: Family Provider Family Medicine; PCP Family Medicine; Visit Provider Nurse Practitioner
DX: F33.2 Major depressive disorder, recurrent severe without psychotic features (principal); F15.21 Other stimulant dependence, in remission
CPT/HCPCS: 99214

== ENCOUNTER → 2020-09-18 10:37 | Outpatient (BNVA) | payer MEDICAID, SELFPAY ==
[2020-07-01 09:50] VITALS: BP 152/88; BMI 33.9
== END ==
PROVIDERS: Family Provider Family Medicine; PCP Family Medicine; Visit Provider Counselor Professional
DX: F33.2 Major depressive disorder, recurrent severe without psychotic features (principal); F15.21 Other stimulant dependence, in remission
CPT/HCPCS: 90834

== ENCOUNTER → 2020-10-04 09:26 | Outpatient (BNVA) | payer MEDICAID, SELFPAY ==
[2020-07-01 09:50] VITALS: BP 152/88; BMI 33.9
== END ==
PROVIDERS: Family Provider Family Medicine; PCP Family Medicine; Visit Provider Counselor Professional
DX: F33.2 Major depressive disorder, recurrent severe without psychotic features (principal); F15.21 Other stimulant dependence, in remission
CPT/HCPCS: 90834

== ENCOUNTER → 2020-10-30 08:10 | Outpatient (BNVA) | payer MEDICAID, SELFPAY ==
[2020-07-01 09:50] VITALS: BP 152/88; BMI 33.9
== END ==
PROVIDERS: Family Provider Family Medicine; PCP Family Medicine; Visit Provider Counselor Professional
DX: F33.2 Major depressive disorder, recurrent severe without psychotic features (principal); F15.21 Other stimulant dependence, in remission
CPT/HCPCS: 90834

== ENCOUNTER → 2020-11-21 08:25 | Outpatient (BNVA) | payer MEDICAID, SELFPAY ==
[2020-10-30 09:59] VITALS: BP 152/88; BMI 33.9
== END ==
PROVIDERS: Family Provider Family Medicine; PCP Family Medicine; Visit Provider Counselor Professional
DX: F33.2 Major depressive disorder, recurrent severe without psychotic features (principal); F15.21 Other stimulant dependence, in remission
CPT/HCPCS: 90832; 90834

== ENCOUNTER → 2020-12-05 08:17 | Outpatient (BNVA) | payer MEDICAID, SELFPAY ==
[2020-10-30 09:59] VITALS: BP 152/88; BMI 33.9
== END ==
PROVIDERS: Family Provider Family Medicine; PCP Family Medicine; Visit Provider Counselor Professional
DX: F33.2 Major depressive disorder, recurrent severe without psychotic features (principal); F15.21 Other stimulant dependence, in remission
CPT/HCPCS: 90834

== ENCOUNTER → 2020-12-10 08:17 | Outpatient (BNVA) | payer MEDICAID, SELFPAY ==
[2020-10-30 09:59] VITALS: BP 152/88; BMI 33.9
== END ==
PROVIDERS: Family Provider Family Medicine; PCP Family Medicine; Visit Provider Nurse Practitioner
DX: F33.2 Major depressive disorder, recurrent severe without psychotic features (principal); F15.21 Other stimulant dependence, in remission
CPT/HCPCS: 99214

== ENCOUNTER → 2021-01-02 10:42 | Outpatient (BNVA) | payer MEDICAID, SELFPAY ==
[2020-10-30 09:59] VITALS: BP 152/88; BMI 33.9
== END ==
PROVIDERS: Family Provider Family Medicine; PCP Family Medicine; Visit Provider Counselor Professional
DX: F33.2 Major depressive disorder, recurrent severe without psychotic features (principal); F15.21 Other stimulant dependence, in remission
CPT/HCPCS: 90834

== ENCOUNTER → 2021-01-23 11:10 | Outpatient (BNVA) | payer MEDICAID, SELFPAY ==
[2020-10-30 09:59] VITALS: BP 152/88; BMI 33.9
== END ==
PROVIDERS: Family Provider Family Medicine; PCP Family Medicine; Visit Provider Counselor Professional
DX: F33.2 Major depressive disorder, recurrent severe without psychotic features (principal); F15.21 Other stimulant dependence, in remission
CPT/HCPCS: 90834

== ENCOUNTER → 2021-02-04 10:09 | Outpatient (BNVA) | payer MEDICAID, SELFPAY ==
[2020-10-30 09:59] VITALS: BP 152/88; BMI 33.9
== END ==
PROVIDERS: Family Provider Family Medicine; PCP Family Medicine; Visit Provider Nurse Practitioner
DX: F33.2 Major depressive disorder, recurrent severe without psychotic features (principal); F15.21 Other stimulant dependence, in remission
CPT/HCPCS: 99214

== ENCOUNTER → 2021-02-27 10:48 | Outpatient (BNVA) | payer MEDICAID, SELFPAY ==
[2020-10-30 09:59] VITALS: BP 152/88; BMI 33.9
== END ==
PROVIDERS: Family Provider Family Medicine; PCP Family Medicine; Visit Provider Counselor Professional
DX: F15.21 Other stimulant dependence, in remission (principal); F33.2 Major depressive disorder, recurrent severe without psychotic features
CPT/HCPCS: 90834

== ENCOUNTER → 2021-03-04 09:46 | Outpatient (BNVA) | payer MEDICAID, SELFPAY ==
[2020-10-30 09:59] VITALS: BP 152/88; BMI 33.9
== END ==
PROVIDERS: Family Provider Family Medicine; PCP Family Medicine; Visit Provider Nurse Practitioner
DX: F33.2 Major depressive disorder, recurrent severe without psychotic features (principal); F15.21 Other stimulant dependence, in remission
CPT/HCPCS: 99214

== ENCOUNTER → 2021-03-25 11:10 | Outpatient (BNVA) | payer OTHER, SELFPAY ==
[2020-10-30 09:59] VITALS: BP 152/88; BMI 33.9
== END ==
PROVIDERS: Family Provider Family Medicine; PCP Family Medicine; Visit Provider Nurse Practitioner
DX: F33.2 Major depressive disorder, recurrent severe without psychotic features (principal); Z79.899 Other long term (current) drug therapy
CPT/HCPCS: 80061; 83036; 83721

== ENCOUNTER → 2021-04-29 08:56 | Outpatient (BNVA) | payer MEDICAID, SELFPAY ==
[2021-03-28 10:26] VITALS: BP 164/98; BMI 34.0
== END ==
PROVIDERS: Family Provider Family Medicine; PCP Family Medicine; Visit Provider Nurse Practitioner
DX: F33.2 Major depressive disorder, recurrent severe without psychotic features (principal); F15.21 Other stimulant dependence, in remission
CPT/HCPCS: 99214

== ENCOUNTER 2021-06-03 09:43 | Emergency (ER) | payer MEDICAID, SELFPAY ==
[2021-03-28 10:26] VITALS: BP 164/98; BMI 34.0
[2021-06-03 09:49] VITALS: BP 159/73; PULSE 83; RESP 20; O2SAT 96; BMI 36.0
--- NOTE | 2021-06-03 09:52 | W.ED.URI ---
HPI - URI/Sore Throat General: Chief Complaint: Shortness of Breath/Dyspnea Stated Complaint: CHEST CONGESTION Time Seen by Provider: 06/03/21 09:45 Source: patient and EMS Mode of arrival: EMS Limitations: no limitations History of Present Illness: HPI Narrative: Patient is a 61-year-old female who presents to ED today via EMS for complaints of chest congestion and a cough. EMS tells me they initially responded to patient's house for a blood pressure check . Patient states her blood pressure has been reading high with systolic readings in the 190s. She tells me she chronically has elevated blood pressures. She states she treats this with propranolol and losartan. She tells me she has been taking everything available [id number] for her chest congestion which could contribute to her elevated BP readings. She states she has had chest congestion and a nonproductive cough over the past 8 days. She is complaining of fatigue and body aches as well as a headache. No documented fevers. She is fully immunized for COVID (minus booster) and influenza. She also has a complaint of elevated blood sugars. Patient states her blood sugar normally runs in the 400s. Last hA1c was checked 3 weeks ago and she does not know the specific reading but states it was high . She states her diabetes is managed by her PCP Dr. Pascual. elicited complaint: cough and other (elevated BP, chronically elevated glucose) Pertinent past history: asthma Onset (ago): day(s) (8 days) Consistency: constant Able to tolerate fluids by mouth: Yes Associated symptoms: Reports headache(s); Deny abdominal pain, chest pain, diarrhea, nasal congestion, nausea, sinus pain or vomiting Treatments prior to arrival: cold medicine Review of Systems Const: Reports: body aches and fatigue Eyes: Denies: change in vision, blurry vision, photophobia, floaters or seeing flashes ENMT: Denies: throat pain, odynophagia, nasal discharge, nasal congestion, post nasal drip or sinus pain Card: Reports: orthopnea; Denies: chest pain, palpitations, irregular heart rhythm, edema, swelling of feet/ankles, lightheadedness, syncope or pre-syncope Resp: Reports: dyspnea, non-productive cough and chest congestion; Denies: wheezing or hemoptysis GI: Denies: abdominal pain, nausea, vomiting or diarrhea Musc: Denies: neck pain, back pain, extremity pain or joint pain Skin/Breast: Denies: rash Neuro: Reports: headache(s); Denies: numbness in extremities, weakness in extremities, sensory changes, difficulty walking or dizziness PFSH ED PFSH: Medical History Bipolar 1 disorder, depressed Hepatitis C Hypertension Major depressive disorder, recurrent severe without psychotic features Other stimulant dependence, in remission Other stimulant dependence, in remission Psychiatric care Recurrent pancreatitis Type 2 diabetes mellitus Surgical History History of appendectomy Family History Mother Clotting disorder Hypertension Father Diabetes Hypertension Hyperlipidemia Grandmother Hypertension Diabetes Social History (Updated 03/25/21 @ 13:47 by Cassandra Cox LPN) Smoking and tobacco status: former smoker Second hand smoke exposure: Yes Alcohol intake: never Adopted: No Caregiver/support person: No Lives independently: Yes Household members: other Details: She takes care of her granddaughter part of the time Housing: Other Details: [facility] Marital status: Number of children: 2 Number of grandchildren: 3 Highest education level completed: GED or Equivalent service: No Current occupational status: disabled Current occupational exposures/hazards: No Pets and animals: No History of recent travel: No Leisure activites: other Leisure activities details: swim Sexually active: No Current gender identity: Female Viviana/Latter Day: Hinduism Special viviana needs: No Agree to transfusion: Yes Financial difficulty paying for basics: Somewhat Hard Female Reproductive History: Para: 2 Date of menopause: 03/12/08 Physical Exam Const: COMMON NORMALS: no acute distress, patient oriented x3, no limitations and alert NUTRITIONAL APPEARANCE: obese ORIENTATION/CONSCIOUSNESS: Yes awake, Yes oriented to person, Yes oriented to place and Yes oriented to time HENMT: COMMON NORMALS: normocephalic and atraumatic HEAD & SCALP: normal to inspection, normocephalic and atraumatic FACE & SINUS: normal facial exam Neck/C-Spine: GENERAL: Yes normal visual inspection and No JVD Resp: COMMON NORMALS: normal respiratory effort and clear to auscultation bilaterally AUSCULTATION: clear to auscultation bilaterally Cardio: COMMON NORMALS: regular rate and regular rhythm RATE: regular rate RHYTHM: regular rhythm Extremity: COMMON NORMALS: capillary refill normal, no clubbing, cyanosis or edema, no calf tenderness and no pedal edema Neuro: MARK COMA SCALE: document GCS findings [place] coma scale eye opening: Spontaneous [place] coma scale verbal response: Orientated [place] coma scale motor response: Obey commands [place] coma scale total score: 15 COMMON NORMALS: patient oriented x3, CN's II-XII intact bilaterally, moves all extremities, no focal motor deficits and no sensory deficits noted SENSORIUM/ORIENTATION: Yes alert, Yes oriented to person, Yes oriented to place and Yes oriented to time Skin: COMMON NORMALS: no rashes or lesions noted GENERAL SKIN EXAM: no rashes or lesions noted Course Vital Signs: Vital signs: Vital Signs Pulse Rate 82 06/03/21 11:06 Respiratory Rate 20 H 06/03/21 09:49 Blood Pressure 160/80 06/03/21 11:06 Pulse Oximetry 97 06/03/21 11:06 MDM - URI/Sore Throat MDM Narrative: Medical decision making narrative: Blood pressures here running 150s/80s which she states is about normal for her. Glucose in the 300s which again she states is fairly normal. Recommend she speak to PCP in regards to these issues. Rapid COVID negative. PCR pending. CXR shows possible left basilar infiltrate. Will go ahead and place on levaquin. Will hold off on steroids as these will worsen her hypertension/hyperglycemia. Return to ED precautions given. Lab Data: Labs: Lab Results 06/03/21 06/03/21 06/03/21 09:26 09:26 10:15 WBC 12.6 10^3/uL H 10 ^3/uL (4.0-10.0) RBC 4.39 10^6/uL 10^6 /uL (4.1-5.3) Hgb 13.5 g/dL g/dL (11.5-15.3) Hct 40.6 % % (37.0-47.0) MCV 92.5 fl fl (81-99) MCH 30.8 pg pg (28.0-34.0) MCHC 33.3 g/dL g/dL (30.0-36.0) RDW 12.0 % L % (12.1-15.1) Plt Count 357 10^3/cmm 10^3 /cmm (130-400) MPV 10.0 fL fL (7.4-10.4) Neut % (Auto) 50.1 % % Lymph % (Auto) 30.0 % % [place] % (Auto) 10.4 % % Eos % (Auto) 4.0 % % Baso % (Auto) 1.1 % % Neut # (Auto) 6.30 10^3/uL 10^3 /uL (1.8-7.7) Lymph # (Auto) 3.8 10^3/uL 10^3/ uL (0.8-4.8) [place] # (Auto) 1.3 10^3/uL H 10^ 3/uL (0.2-0.9) Eos # (Auto) 0.5 10^3/uL 10^3/ uL (0.0-0.8) Baso # (Auto) 0.1 10^3/uL 10^3/ uL (0.0-0.1) Nucleated RBC % (a uto) 0 % % Nucleated RBCs # 0.0 /100WBC /100W BC Sodium 134 mmol/L L mmol /L (136-145) Potassium 4.7 mmol/L mmol/L (3.5-5.1) Chloride 95 mmol/L L mmol/ L (98-107) Carbon Dioxide 24 mmol/L mmol/L (22-29) Anion Gap 19.7 H (5-19) BUN 18 mg/dL mg/dL (6-20) Creatinine 0.9 mg/dL mg/dL (0.5-0.9) GFR Calculation 64.1 mL/min L mL/ min (90-130) Glucose 316 mg/dL H mg/dL (65-115) Calculated Osmolal ity 292 mOsm/kg mOsm/ kg (285-295) Calcium 9.5 mg/dL mg/dL (8.5-10.5) Total Bilirubin 0.2 mg/dL mg/dL (0.15-1.2) AST 32 U/L U/L (0-32) ALT 31 U/L U/L (0-33) Alkaline Phosphata se 77 IU/L IU/L (35-105) Total Protein 7.6 g/dL g/dL (6.6-8.7) Albumin 4.7 g/dL g/dL (3.5-5.2) Globulin 2.9 g/dL g/dL (1.3-4.6) Urine Color Yellow (Yellow) Urine Appearance Clear (CLEAR) Urine pH 5 (5-7) Ur Specific Gravit y 1.015 (1.005-1.030) Urine Protein Trace (Negative) Urine Glucose (UA) 4+ H (Normal) Urine Ketones Negative (Negative) Urine Blood Neg (Negative) Urine Nitrate Negative (Negative) Urine Bilirubin Neg (Negative) Urine Urobilinogen Norm mg/dL mg/dL (Negative) Ur Leukocyte Viri ase Negative (Negative) Urine RBC None /hpf /hpf (0-2) Urine WBC 0-4 /hpf H /hpf (0-5) Ur Squamous Epith Cells 0-4 /hpf H /hpf (0-5) Amorphous Sediment Not Reportable Urine Bacteria Trace /hpf /hpf (NONE) SARS-CoV-2 Ag (Rap id) 06/03/21 10:20 WBC RBC Hgb Hct MCV MCH MCHC RDW Plt Count MPV Neut % (Auto) Lymph % (Auto) [place] % (Auto) Eos % (Auto) Baso % (Auto) Neut # (Auto) Lymph # (Auto) [place] # (Auto) Eos # (Auto) Baso # (Auto) Nucleated RBC % (a uto) Nucleated RBCs # Sodium Potassium Chloride Carbon Dioxide Anion Gap BUN Creatinine GFR Calculation Glucose Calculated Osmolal ity Calcium Total Bilirubin AST ALT Alkaline Phosphata se Total Protein Albumin Globulin Urine Color Urine Appearance Urine pH Ur Specific Gravit y Urine Protein Urine Glucose (UA) Urine Ketones Urine Blood Urine Nitrate Urine Bilirubin Urine Urobilinogen Ur Leukocyte Viri ase Urine RBC Urine WBC Ur Squamous Epith Cells Amorphous Sediment Urine Bacteria SARS-CoV-2 Ag (Rap id) Negative (Negative) Imaging Data^: CXR: Radiologist's impression: [address] [id number] ReportSigned Patient: Heidi Quintanilla #: [id number]: 2Acct#:[id number]/Sex: 61 / FADM Date: 06/03/21Loc: ERRoom/Bed:Attending Dr: Ordering Provider/Ordering MD: Aissatou Sosa Date of Service: 06/03/21 Procedure(s): XR chest 1V portable [id number] Accession Number(s): [id number] Report Number: [id number] PROCEDURE INFORMATION: Exam: XR Chest Exam date and time: 06/03/2021 9:51 AM Age: 61 years old Clinical indication: Cough; Additional info: Cough, congestion TECHNIQUE: Imaging protocol: XR of the chest. Views: 1 view. Other technique: Frontal portable upright view of the chest. COMPARISON: CT chest [facility] [id number] 12/21/2019 3:16 PM FINDINGS: Lungs: Left lateral basilar subsegmental atelectasis/infiltrate. The lungs are otherwise peripherally clear bilaterally. The pulmonary vasculature is normal. Pleural spaces: No pleural effusion. No pneumothorax. Heart/Mediastinum: The heart is normal in size and contour. Mediastinum: Stable. Bones/joints: Rightward lumbar spinal curvature redemonstrated. XR/XR chest 1V portable [id number] IMPRESSION: Left lateral basilar subsegmental atelectasis/infiltrate. Early pneumonitis is difficult to exclude. Clinical correlation is recommended. Radiation Dose CTDIVOL = (mGy): DLP = (mGy-cm) Dictated By:Evan Byrne MDSigned By:Evan Byrne MDSigned Date/Time:06/03/21 1053DD/ 0951 Discharge Plan Discharge Patient Disposition: Home Clinical Impression: Chronic hyperglycemia Pneumonia Qualifiers: Pneumonia type: due to unspecified organism Laterality: left Lung location: unspecified part of lung Qualified Code(s): J18.9 - Pneumonia, unspecified organism Hypertension Qualifiers: Hypertension type: primary hypertension Qualified Code(s): I10 - Essential (primary) hypertension Condition: Stable Prescriptions: New levofloxacin 750 mg tablet 750 mg PO DAILY 5 Days Qty: 5 RF: 0 No Action gabapentin 300 mg capsule See Rx Instructions .ROUTE .COMPLEX RF: 0 qq-os-txiu-FA-Ca carb-vit K 18 mg iron-400 mcg-500 mg tablet 1 tab PO DAILY RF: 0 quetiapine [Seroquel] 200 mg tablet 200 mg PO .HS Qty: 30 RF: 1 lorazepam 1 mg tablet 1 mg PO BID PRN (Reason: anxiety) Qty: 60 RF: 1 citalopram [Celexa] 40 mg tablet 40 mg PO DAILY Qty: 30 RF: 1 bupropion HCl [Wellbutrin XL] 300 mg tablet extended release 24 hr 300 mg PO DAILY Qty: 30 RF: 1 bupropion HCl [Wellbutrin XL] 150 mg tablet extended release 24 hr 150 mg PO QAM Qty: 30 RF: 1 levothyroxine [Synthroid] 50 mcg tablet 50 mcg PO DAILY RF: 0 losartan [Cozaar] 25 mg tablet 25 mg PO DAILY RF: 0 fenofibrate nanocrystallized 145 mg tablet 145 mg PO DAILY RF: 0 albuterol sulfate 90 mcg/actuation HFA aerosol inhaler 2 puff inhalation Q6H PRNRF: 0 promethazine 25 mg tablet 25 mg PO BID PRN (Reason: nausea and vomiting) RF: 0 Ozempic 1 mg/dose (2 mg/1.5 mL) pen injector 2 mg SUBCUT .once weekly RF: 0 propranolol 40 mg tablet 40 mg PO BID RF: 0 ibuprofen 200 mg Tablet 800 mg PO PRN RF: 0 metformin 500 mg tablet extended release 24 hr 1,000 mg PO QPM RF: 0 melatonin 10 mg Tablet 10 mg PO BEDTIME PRN (Reason: Sleep) RF: 0 Discharge Orders: Discharge ED (Routine); Ordered 06/03/21 Ordered By: Aissatou Sosa Referrals: Ria Pascual MD [Primary Care Provider] - Patient Instructions: Pneumonia (ED) Activity Restrictions/Additional Instructions: As we discussed your rapid COVID was negative today. We have sent a PCR send out test. You need to quarantine until you get these results back. Please begin antibiotics immediately for your pneumonia. We decided not to do oral steroids considering your elevated glucose and blood pressure readings. You need to speak to your primary care provider regarding your chronically elevated glucose readings and elevated blood pressures. These seem to be chronic issues and there is no need for emergent reduction of these today. Coding Level of Care Code ED Boxing Instructor for Galeng Fwd Exam Comprehensive
[2021-06-03 10:08] LABS: Basophils # 0.1 10^3/uL (0.0-0.1); Basophils % 1.1 %; Eosinophils # 0.5 10^3/uL (0.0-0.8); Hematocrit 40.6 % (37.0-47.0); Hemoglobin 13.5 g/dL (11.5-15.3); Lymphocytes # 3.8 10^3/uL (0.8-4.8); Mean Corpuscular HGB Conc 33.3 g/dL (30.0-36.0); Mean Corpuscular Hemoglobin 30.8 pg (28.0-34.0); Mean Corpuscular Volume 92.5 fl (81-99); Monocytes # 1.3 10^3/uL (0.2-0.9); Monocytes % 10.4 %; Neutrophils % 50.1 %; Nucleated Red Blood Cells % 0 %; Platelet Count 357 10^3/cmm (130-400); Red Blood Count 4.39 10^6/uL (4.1-5.3); White Blood Count 12.6 10^3/uL (4.0-10.0)
[2021-06-03 10:11] VITALS: BP 139/69; PULSE 82; O2SAT 95
[2021-06-03 10:25] LABS: Alanine Aminotransferase 31 U/L (0-33); Albumin Level 4.7 g/dL (3.5-5.2); Alkaline Phosphatase 77 IU/L (35-105); Anion Gap 19.7 (5-19); Aspartate Amino Transferase 32 U/L (0-32); Blood Urea Nitrogen 18 mg/dL (6-20); Calcium 9.5 mg/dL (8.5-10.5); Carbon Dioxide 24 mmol/L (22-29); Chloride 95 mmol/L (98-107); Creatinine Clr Calc Pharmacy 69.9159; Globulin 2.9 g/dL (1.3-4.6); Glomerular Filtration Rate 64.1 mL/min (90-130); Glucose 316 mg/dL (65-115); Osmolality Calculated 292 mOsm/kg (285-295); Potassium 4.7 mmol/L (3.5-5.1); Sodium 134 mmol/L (136-145); Total Bilirubin 0.2 mg/dL (0.15-1.2); Total Protein 7.6 g/dL (6.6-8.7)
[2021-06-03 10:27] LABS: Add Urine Microscopic? YES; Bilirubin Urine Neg (Negative); Blood Urine Neg (Negative); Glucose Urine UA 4+ (Normal); Ketones Urine Negative (Negative); Leukocyte Esterase Urine Negative (Negative); Nitrate Urine Negative (Negative); Protein Urine Trace (Negative); Specific Gravity, Urine 1.015 (1.005-1.030); Urine Appearance Clear (CLEAR); Urine Color Yellow (Yellow); Urobilinogen Urine Norm (Negative); pH Urine 5 (5-7)
[2021-06-03 10:33] LABS: Add Urine Culture? No; Bacteria Urine TRACE /hpf; WBC Urine 0-4 /hpf (0-5)
[2021-06-03 10:46] LABS: Squamous Epithelial Cell Urine 0-4 /hpf (0-5)
[2021-06-03 11:06] VITALS: BP 160/80; PULSE 82; O2SAT 97
[2021-06-03 11:17] LABS: SARS Covid-2 Antigen Negative (Negative)
[2021-06-04 14:42] LABS: Coronavirus Test Green County Not Detected
--- NOTE | 2021-06-04 17:56 | PC.NURSE ---
Pt notified of Negative COVID
== END 2021-06-03 11:51 | disposition home or self-care (01) ==
PROVIDERS: Emergency Provider Physician Assistant; PCP Family Medicine
DX: J18.9 Pneumonia, unspecified organism (principal); I10 Essential (primary) hypertension; E11.9 Type 2 diabetes mellitus without complications; Z87.891 Personal history of nicotine dependence
CPT/HCPCS: 71045; 80053; 81001; 85025; 87426; 87635; 99283

== ENCOUNTER → 2021-06-30 11:45 | Outpatient (BNVA) | payer MEDICAID, SELFPAY ==
[2021-03-28 10:26] VITALS: BP 164/98; BMI 34.0
== END ==
PROVIDERS: PCP Family Medicine; Visit Provider Nurse Practitioner
DX: F33.2 Major depressive disorder, recurrent severe without psychotic features (principal); F15.21 Other stimulant dependence, in remission
CPT/HCPCS: 99214

== ENCOUNTER → 2021-08-26 13:23 | Outpatient (BNVA) | payer MEDICAID, SELFPAY ==
[2021-03-28 10:26] VITALS: BP 164/98; BMI 34.0
== END ==
PROVIDERS: PCP Family Medicine; Visit Provider Nurse Practitioner
DX: F33.2 Major depressive disorder, recurrent severe without psychotic features (principal); F15.21 Other stimulant dependence, in remission
CPT/HCPCS: 99214

== ENCOUNTER → 2021-09-29 12:35 | Outpatient (BNVA) | payer MEDICAID, SELFPAY ==
[2021-03-28 10:26] VITALS: BP 164/98; BMI 34.0
== END ==
PROVIDERS: PCP Family Medicine; Visit Provider Nurse Practitioner
DX: F33.2 Major depressive disorder, recurrent severe without psychotic features (principal); F15.21 Other stimulant dependence, in remission
CPT/HCPCS: 99214

== ENCOUNTER → 2021-12-22 14:16 | Outpatient (BNVA) | payer MEDICAID, SELFPAY ==
[2021-03-28 10:26] VITALS: BP 164/98; BMI 34.0
== END ==
PROVIDERS: PCP Family Medicine; Visit Provider Nurse Practitioner
DX: F43.21 Adjustment disorder with depressed mood (principal); F33.2 Major depressive disorder, recurrent severe without psychotic features; F15.21 Other stimulant dependence, in remission
CPT/HCPCS: 99214

== ENCOUNTER 2022-08-18 17:54 | Emergency (ER) | payer MEDICAID, SELFPAY ==
[2021-03-28 10:26] VITALS: BP 164/98; BMI 34.0
[2022-08-18 17:59] VITALS: BP 179/118; PULSE 87; RESP 17; TEMP 36.7; O2SAT 94; BMI 31.1
--- NOTE | 2022-08-18 18:23 | XRR_ITS ---
PROCEDURE INFORMATION: Exam: XR Chest Exam date and time: 08/18/2022 6:55 PM Age: 62 years old Clinical indication: Shortness of breath and other: AMS, shortness of breath; Additional info: Weakness TECHNIQUE: Imaging protocol: Radiologic exam of the chest. Views: 1 view. COMPARISON: CR XR chest 1V portable [id number] 06/03/2021 10:11 AM FINDINGS: Lungs: Small calcified granuloma in the left lung. The lungs are otherwise clear. Pleural spaces: Unremarkable. No pleural effusion. No pneumothorax. Heart/Mediastinum: Unremarkable. No cardiomegaly. Bones/joints: Unremarkable. XR/XR chest 1V portable [id number] IMPRESSION: No acute findings.
--- NOTE | 2022-08-18 18:24 | ECG_ITS ---
[facility] Test Date: 2022-08-18 Pat Name: Heidi Quintanilla Department: Room: Gender: Female Primary Mill Roller: : 1960 Requested By: Jenaro Irwin Order Number: [id number] Tana MD: Uche Coronado M.D. Measurements Intervals [place] Rate: 88 P: 58 IA: 194 QRS: 19 QRSD: 92 T: 60 QT: 372 QTc: 452 Interpretive Statements SINUS RHYTHM LOW QRS VOLTAGE IN PRECORDIAL LEADS [QRS DEFLECTION < 1.0 mV IN CHEST LEADS] ANTEROSEPTAL MYOCARDIAL INFARCTION , PROBABLY OLD [40+ ms Q WAVE IN V1-V4] Compared to ECG 10/18/2019 03:40:06 No significant changes Electronically Signed On 08-18-2022 22:46:18 REACTOR SERVICE OPERATOR by Uche Coronado M.D. [id number]
--- NOTE | 2022-08-18 18:44 | CTR_ITS ---
PROCEDURE INFORMATION: Exam: CT Head Without Contrast Exam date and time: 08/18/2022 8:22 PM Age: 62 years old Clinical indication: Altered mental status/memory loss; Confusion or disorientation; Patient HX: Confusion with general weakness; Additional info: AMS TECHNIQUE: Imaging protocol: Computed tomography of the head without contrast. Radiation optimization: All CT scans at this facility use at least one of these dose optimization techniques: automated exposure control; mA and/or kV adjustment per patient size (includes targeted exams where dose is matched to clinical indication); or iterative reconstruction. Other protocol: This patient has received 0 known CTs and 0 known cardiac nuclear medicine studies in the 12 months prior to the current study. COMPARISON: CT head wo con* [id number] 10/18/2019 2:18 AM RADIATION DOSE METRICS: Total DLP (mGy-cm): 1062.08 FINDINGS: Brain: Moderate diffuse cortical volume loss. Mild hypodensities in supratentorial periventricular and subcortical white matter, consistent with microangiopathy. No intracranial hemorrhage. Chronic lacunar infarct versus perivascular space in the inferior left lentiform nucleus. Cerebral ventricles: No ventriculomegaly. Paranasal sinuses: Visualized sinuses are unremarkable. No fluid levels. Mastoid air cells: Visualized mastoid air cells are well aerated. Bones/joints: Hyperostosis of the frontal calvarium. No fracture. Soft tissues: Unremarkable. Vasculature: No hyperdense artery. CT/CT head wo con* [id number] IMPRESSION: 1. No acute intracranial abnormality.
--- NOTE | 2022-08-18 18:55 | W.ED.GENADLT ---
HPI - General Adult General: Chief complaint: Altered Mental Status Stated complaint: Lethargic, Weakness, high blood sugar Time Seen by Provider: 08/18/22 18:40 Source: patient Limitations: no limitations History of Present Illness: 62-year-old female who is here with her daughter daughter states she been having increasing confusion for 2 to 3 months states she is scheduled for outpatient head CT by her PCP was concerned she may be developing dementia daughter states that she did want to get her today as she does live at home and she is more confused than typical patients here is actually able to tell me the year her name and where she lives she does complain of mild headache no other complaints she has had some generalized weakness. Associated symptoms: Reports confusion; Deny chest pain, dyspnea, nausea, rash or vomiting Review of Systems Const: Denies: fever(s), chills, body aches or change in appetite Eyes: Denies: blurry vision or eye discomfort ENMT: Denies: throat pain or dental pain Card: Denies: chest pain Resp: Denies: dyspnea GI: Denies: abdominal pain, nausea, vomiting or diarrhea : Denies: dysuria Musc: Denies: neck pain or back pain Skin/Breast: Denies: rash Neuro: Reports: confusion Psych: Reports: memory loss [place]/Lymph: Denies: easy bruising All/Imm: Denies: urticaria PFSH ED PFSH: Medical History Bipolar 1 disorder, depressed Grief Hepatitis C Hypertension Major depressive disorder, recurrent severe without psychotic features Other stimulant dependence, in remission Other stimulant dependence, in remission Psychiatric care Recurrent pancreatitis Type 2 diabetes mellitus Surgical History History of appendectomy Family History Mother Clotting disorder Hypertension Father Diabetes Hypertension Hyperlipidemia Grandmother Hypertension Diabetes Other Major depressive disorder, recurrent severe without psychotic features Social History Smoking and tobacco status: former smoker Quit status (tobacco): has quit using tobacco Year quit tobacco: 2019 Second hand smoke exposure: Yes Smoking risk assessment/counseling performed?: No Alcohol intake: never Desire information about alcohol rehabilitation?: No Counseling given: No Adopted: No Caregiver/support person: No Lives independently: Yes Household members: other Details: She takes care of her granddaughter part of the time Housing: Other Details: [facility] Marital status: Number of children: 2 Number of grandchildren: 3 Highest education level completed: GED or Equivalent service: No Current occupational status: disabled Current occupational exposures/hazards: No Pets and animals: No History of recent travel: No Leisure activites: other Leisure activities details: swim Sexually active: No Current gender identity: Female Viviana/Lutheran: Mormonism Special viviana needs: No Agree to transfusion: Yes Financial difficulty paying for basics: Somewhat Hard Female Reproductive History: Para: 2 Date of menopause: 03/12/08 Physical Exam Const: COMMON NORMALS: no acute distress, patient oriented x3 and healthy appearing HENMT: COMMON NORMALS: normocephalic and atraumatic HEAD & SCALP: normocephalic and atraumatic Eye: COMMON NORMALS: Equal, round and reactive pupils present and EOMs intact bilaterally PUPIL: Yes Equal, round and reactive pupils present Neck/C-Spine: COMMON NORMALS: full ROM and supple Chest: COMMONS NORMALS: normal inspection of the chest and normal palpation of entire chest wall Resp: COMMON NORMALS: normal respiratory effort, No retractions, No use of accessory muscles and clear to auscultation bilaterally AUSCULTATION: clear to auscultation bilaterally Cardio: COMMON NORMALS: regular rate, regular rhythm and No murmurs present (Cardio) RATE: regular rate RHYTHM: regular rhythm GI: COMMON NORMALS: Normal to inspection, nondistended, normoactive bowel sounds present, Soft to palpation, non-tender and no masses PALPATION: Yes Soft to palpation Extremity: COMMON NORMALS: normal to inspection and full ROM Neuro: COMMON NORMALS: patient oriented x3, moves all extremities and no focal motor deficits Psych: COMMON NORMALS: mental status grossly normal, Normal thought process present and cooperative THOUGHT PROCESS: Normal thought process present Skin: COMMON NORMALS: no rashes or lesions noted and no wounds GENERAL SKIN EXAM: no rashes or lesions noted Course Vital Signs: Vital signs: Vital Signs Temperature 98.0 F 08/18/22 17:59 Pulse Rate 90 08/18/22 20:30 Respiratory Rate 16 08/18/22 20:30 Blood Pressure 159/79 08/18/22 20:30 Pulse Oximetry 95 08/18/22 20:30 Oxygen Delivery Me thod 08/18/22 17:59 MDM - General Adult Medical Decision Making Patient presents here with some confusion and some going on for months could be dementia. She is able answer my questions appropriately she does have a mild headache head CT blood work is all normal aside some hyperglycemia which is improved she is stable for discharge she is going home with her daughter she is to follow-up with her PCP and return if worsening she understands agrees to plan. Lab Data 08/18/22 19:25 08/18/22 19:25 Radiology Impressions Chest X-Ray 08/18/22 18:23 IMPRESSION: No acute findings. Head CT 08/18/22 18:44 IMPRESSION: 1. No acute intracranial abnormality. Laboratory Results WBC 8.8 10^3/uL (4.0-10.0) 08/18/22 19:25 RBC 4.51 10^6/uL (4.1-5.3) 08/18/22 19:25 Hgb 13.8 g/dL (11.5-15.3) 08/18/22 19:25 Hct 40.8 % (37.0-47.0) 08/18/22 19:25 MCV 90.5 fl (81-99) 08/18/22 19:25 MCH 30.6 pg (28.0-34.0) 08/18/22 19:25 MCHC 33.8 g/dL (30.0-36.0) 08/18/22 19:25 RDW 11.9 % (12.1-15.1) L 08/18/22 19:25 Plt Count 272 10^3/cmm (130-400) 08/18/22 19:25 MPV 10.0 fL (7.4-10.4) 08/18/22 19:25 Neut % (Auto) 39.0 % 08/18/22 19:25 Lymph % (Auto) 48.4 % 08/18/22 19:25 [place] % (Auto) 7.4 % 08/18/22 19:25 Eos % (Auto) 3.2 % 08/18/22 19:25 Baso % (Auto) 0.9 % 08/18/22:25 Neut # (Auto) 3.41 10^3/uL (1.8-7.7) 08/18/22 19:25 Lymph # (Auto) 4.2 10^3/uL (0.8-4.8) 08/18/22 19:25 [place] # (Auto) 0.7 10^3/uL (0.2-0.9) 08/18/22 19:25 Eos # (Auto) 0.3 10^3/uL (0.0-0.8) 08/18/22 19:25 Baso # (Auto) 0.1 10^3/uL (0.0-0.1) 08/18/22 19:25 Nucleated RBC % (auto) 0 % 08/18/22 19:25 Nucleated RBCs # 0.0 /100WBC 08/18/22 19:25 PT 12.40 SECONDS (12.1-14.9) 08/18/22 19:25 INR 0.89 (0.8-1.2) 08/18/22 19:25 Sodium 136 mmol/L (136-145) 08/18/22 19:25 Potassium 3.8 mmol/L (3.5-5.1) 08/18/22 19:25 Chloride 93 mmol/L (98-107) L 08/18/22 19:25 Carbon Dioxide 27 mmol/L (22-29) 08/18/22 19:25 Anion Gap 19.8 (5-19) H 08/18/22 19:25 BUN 18 mg/dL (8-23) 08/18/22 19:25 Creatinine 0.7 mg/dL (0.5-0.9) 08/18/22 19:25 GFR Calculation 85.4 mL/min (90-130) L 08/18/22 19:25 Glucose 360 mg/dL (65-115) H 08/18/22 19:25 POC Glucose 382 mg/dL (70-110) H 08/18/22 19:22 Calculated Osmolality 298 mOsm/kg (285-295) H 08/18/22 19:25 Calcium 10.5 mg/dL (8.5-10.5) 08/18/22 19:25 Total Bilirubin 0.3 mg/dL (0.15-1.2) 08/18/22 19:25 AST 22 U/L (0-32) 08/18/22 19:25 ALT < 5 U/L (0-33) 08/18/22 19:25 Alkaline Phosphatase 90 U/L (35-105) 08/18/22 19:25 Ammonia 35 umol/L (11-51) 08/18/22 19:25 Total Protein 7.3 g/dL (6.6-8.7) 08/18/22 19:25 Albumin 4.5 g/dL (3.5-5.2) 08/18/22 19:25 Globulin 2.8 g/dL (1.3-4.6) 08/18/22 19:25 Urine Color Yellow (Yellow) 08/18/22 19:53 Urine Appearance Clear (CLEAR) 08/18/22 19:53 Urine pH 6 (5-7) 08/18/22 19:53 Ur Specific [place] 1.015 (1.005-1.030) 08/18/22 19:53 Urine Protein Neg (Negative) 08/18/22 19:53 Urine Glucose (UA) 4+ (Normal) H 08/18/22 19:53 Urine Ketones Negative (Negative) 08/18/22 19:53 Urine Blood Neg (Negative) 08/18/22 19:53 Urine Nitrate Negative (Negative) 08/18/22 19:53 Urine Bilirubin Neg (Negative) 08/18/22 19:53 Urine Urobilinogen Norm mg/dL (Negative) 08/18/22 19:53 Ur Leukocyte Esterase Negative (Negative) 08/18/22 19:53 EKG Data EKG 1: I personally reviewed and interpreted this EKG as follows: EKG interpretation date: 08/18/22 EKG interpretation time: 19:01 Interpretation: nsr hr [address] or t wave abnormalities qrs 92 qtc 418 Computer generated interpretation: Chest X-Ray 08/18/22 18:23 IMPRESSION: No acute findings. Head CT 08/18/22 18:44 IMPRESSION: 1. No acute intracranial abnormality. Discharge Plan Discharge Patient Disposition: Home Clinical Impression: Confusion, Hyperglycemia Condition: Stable Prescriptions: No Action gabapentin 300 mg capsule See Rx Instructions .ROUTE .COMPLEX Rx Instructions: 600 mg by mouth at bedtime [id number]-Ca carb-vit K 18 mg iron-400 mcg-500 mg tablet 1 tab PO DAILY levothyroxine [Synthroid] 50 mcg tablet 50 mcg PO DAILY losartan [Cozaar] 25 mg tablet 25 mg PO DAILY fenofibrate nanocrystallized 145 mg tablet 145 mg PO DAILY albuterol sulfate 90 mcg/actuation HFA aerosol inhaler 2 puff inhalation Q6H PRN (Reason: Shortness Of Breath) Victoza 2-Vinny 0.6 mg/0.1 mL (18 mg/3 mL) pen injector 1.2 mg SUBCUT DAILY lorazepam 1 mg tablet 1 mg PO BID PRN (Reason: anxiety) Qty: 60 1RF bupropion HCl [Wellbutrin XL] 300 mg tablet extended release 24 hr 300 mg PO DAILY Qty: 30 1RF bupropion HCl [Wellbutrin XL] 150 mg tablet extended release 24 hr 150 mg PO QAM Qty: 30 1RF citalopram [Celexa] 40 mg tablet 40 mg PO DAILY Qty: 30 1RF promethazine 25 mg tablet 25 mg PO BID PRN (Reason: nausea and vomiting) propranolol 40 mg tablet 40 mg PO BID ibuprofen 200 mg Tablet 800 mg PO PRN metformin 500 mg tablet extended release 24 hr 1,000 mg PO QPM melatonin 10 mg Tablet 10 mg PO BEDTIME PRN (Reason: Sleep) Lantus U-100 Insulin 100 unit/mL Solution 40 unit SUBCUT BID Novolog U-100 Insulin aspart 100 unit/mL Solution See Rx Instructions .ROUTE .COMPLEX Rx Instructions: per sliding scale Seroquel 200 mg tablet 100 mg PO BEDTIME Seroquel 100 mg tablet 50 mg PO BEDTIME Discharge Orders: Discharge ED (Routine); Ordered 08/18/22 Ordered By: Jenaro Irwin Referrals: Ria Pascual MD [Primary Care Provider] - 1-3 days Discharge Diet: Advance as tolerated Discharge Activity: Resume usual activity Patient Instructions: Altered Mental Status (ED) Coding Level of Care Code ED Animal Doctor for Renay Whittaker
[2022-08-18] MEDS: acetaminophen 325 mg Tablet 650 MG PO (19:13)
[2022-08-18 19:34] LABS: Glucose Point of Care 382 mg/dL (70-110)
[2022-08-18 19:39] LABS: Basophils # 0.1 10^3/uL (0.0-0.1); Basophils % 0.9 %; Eosinophils # 0.3 10^3/uL (0.0-0.8); Eosinophils % 3.2 %; Hematocrit 40.8 % (37.0-47.0); Hemoglobin 13.8 g/dL (11.5-15.3); Lymphocytes # 4.2 10^3/uL (0.8-4.8); Lymphocytes % 48.4 %; Mean Corpuscular HGB Conc 33.8 g/dL (30.0-36.0); Mean Corpuscular Hemoglobin 30.6 pg (28.0-34.0); Mean Corpuscular Volume 90.5 fl (81-99); Monocytes # 0.7 10^3/uL (0.2-0.9); Monocytes % 7.4 %; Neutrophils # 3.41 10^3/uL (1.8-7.7); Nucleated Red Blood Cells % 0 %; Platelet Count 272 10^3/cmm (130-400); Red Blood Count 4.51 10^6/uL (4.1-5.3); Red Cell Distribution Width 11.9 % (12.1-15.1); White Blood Count 8.8 10^3/uL (4.0-10.0)
[2022-08-18 19:52] LABS: INR 0.89 (0.8-1.2)
[2022-08-18 19:59] LABS: Add Urine Microscopic? NO; Charge for UA Resulting for Rev
[2022-08-18 20:01] VITALS: BP 194/117; PULSE 86; RESP 18; O2SAT 94
[2022-08-18 20:01] LABS: Albumin Level 4.5 g/dL (3.5-5.2); Alkaline Phosphatase 90 U/L (35-105); Anion Gap 19.8 (5-19); Aspartate Amino Transferase 22 U/L (0-32); Blood Urea Nitrogen 18 mg/dL (8-23); Calcium 10.5 mg/dL (8.5-10.5); Carbon Dioxide 27 mmol/L (22-29); Chloride 93 mmol/L (98-107); Globulin 2.8 g/dL (1.3-4.6); Glomerular Filtration Rate 85.4 mL/min (90-130); Glucose 360 mg/dL (65-115); Osmolality Calculated 298 mOsm/kg (285-295); Potassium 3.8 mmol/L (3.5-5.1); Sodium 136 mmol/L (136-145); Total Bilirubin 0.3 mg/dL (0.15-1.2); Total Protein 7.3 g/dL (6.6-8.7)
[2022-08-18] MEDS: ondansetron 2 mg/ML SDV 2 mL 4 MG IVP ×2 (20:01→21:20)
[2022-08-18] MEDS: insulin regular-human 100 units/1 mL 8 UNIT IVP (20:10)
[2022-08-18 20:13] LABS: Alanine Aminotransferase < 5 U/L (0-33)
[2022-08-18 20:14] LABS: Bilirubin Urine Neg (Negative); Blood Urine Neg (Negative); Glucose Urine UA 4+ (Normal); Ketones Urine Negative (Negative); Leukocyte Esterase Urine Negative (Negative); Nitrate Urine Negative (Negative); Protein Urine Neg (Negative); Specific Gravity, Urine 1.015 (1.005-1.030); Urine Appearance Clear (CLEAR); Urine Color Yellow (Yellow); Urobilinogen Urine Norm (Negative); pH Urine 6 (5-7)
[2022-08-18] MEDS: hyDRALAzine 20 mg/mL INJ 1 mL 10 MG IVP (20:14)
[2022-08-18 20:21] LABS: Ammonia 35 umol/L (11-51)
[2022-08-18 20:30] VITALS: BP 159/79; PULSE 90; RESP 16; O2SAT 95
[2022-08-18] MEDS: morphine 4 mg/mL SDV 1 mL IVP (21:18)
[2022-08-18 21:30] LABS: Glucose Point of Care 322 mg/dL (70-110)
== END 2022-08-18 21:29 | disposition home or self-care (01) ==
PROVIDERS: Emergency Provider Emergency Medicine; PCP Family Medicine
DX: R41.0 Disorientation, unspecified (principal); E11.65 Type 2 diabetes mellitus with hyperglycemia; Z79.4 Long term (current) use of insulin; Z79.84 Long term (current) use of oral hypoglycemic drugs; Z87.891 Personal history of nicotine dependence; Z86.19 Personal history of other infectious and parasitic diseases
CPT/HCPCS: 36416; 70450; 71045; 80053; 81003; 82140; 82962; 85025; 85610; 93005; 96374; 96375; 96376; 99285; J0360; J1815; J2270; J2405

== ENCOUNTER 2022-11-14 21:44 | Emergency (ER) | payer MEDICAID, SELFPAY ==
[2021-03-28 10:26] VITALS: BP 164/98; BMI 34.0
[2022-11-14 21:57] VITALS: BP 203/91; PULSE 111; RESP 18; TEMP 36.9; O2SAT 96; BMI 30.5
[2022-11-14 22:42] VITALS: BP 178/96; PULSE 105; RESP 18; O2SAT 95
[2022-11-14 23:35] LABS: Basophils # 0.1 10^3/uL (0.0-0.1); Basophils % 0.8 %; Eosinophils # 0.3 10^3/uL (0.0-0.8); Hematocrit 36.1 % (37.0-47.0); Lymphocytes # 4.2 10^3/uL (0.8-4.8); Mean Corpuscular HGB Conc 33.2 g/dL (30.0-36.0); Mean Corpuscular Hemoglobin 30.4 pg (28.0-34.0); Mean Corpuscular Volume 91.4 fl (81-99); Monocytes # 0.7 10^3/uL (0.2-0.9); Monocytes % 7.6 %; Neutrophils # 4.24 10^3/uL (1.8-7.7); Neutrophils % 43.7 %; Nucleated Red Blood Cells % 0 %; Platelet Count 268 10^3/cmm (130-400); Red Blood Count 3.95 10^6/uL (4.1-5.3); White Blood Count 9.7 10^3/uL (4.0-10.0)
[2022-11-14 23:36] LABS: Erythrocyte Sedimentation Rate 11 mm/hr (0-15)
--- NOTE | 2022-11-14 23:41 | W.ED.BACK ---
HPI - Back Pain/Injury General: Chief Complaint: Back Pain/Injury Stated Complaint: back pain Time Seen by Provider: 11/14/22 22:54 Source: patient Mode of arrival: ambulatory Limitations: no limitations History of Present Illness: Patient presents emergency department today for evaluation and treatment of body aches, nausea and vomiting, weakness, back pain, and headache. Patient denies any falls or trauma however, indicates she has been ill for quite some time. She reports issues with urinary tract infection but, states she has not been on antibiotics for quite some time. She reports symptoms now for weeks but has not been seen or evaluated. She states fatigue is so bad and symptoms so severe that she has been sleeping on the floor of her bathroom. She reports such recurrent vomiting that now she is just dry heaving and she is unable to tolerate any type of p.o. intake. She has not taken any of her nighttime meds and, states that sometimes she is ill and is unable to take her chronic medications. Patient reports back pain and headache but, has not been having any blurry vision. She denies chest pain but feels like her throat has a cork in it . Review of Systems General: Reports: 10 or more systems reviewed and unremarkable except in HPI and below PFSH ED PFSH: Medical History Bipolar 1 disorder, depressed Grief Hepatitis C Hypertension Major depressive disorder, recurrent severe without psychotic features Other stimulant dependence, in remission Other stimulant dependence, in remission Psychiatric care Recurrent pancreatitis Type 2 diabetes mellitus Surgical History History of appendectomy Family History Mother Clotting disorder Hypertension Father Diabetes Hypertension Hyperlipidemia Grandmother Hypertension Diabetes Other Major depressive disorder, recurrent severe without psychotic features Social History Smoking and tobacco status: former smoker Quit status (tobacco): has quit using tobacco Year quit tobacco: 2019 Second hand smoke exposure: Yes Smoking risk assessment/counseling performed?: No Alcohol intake: never Desire information about alcohol rehabilitation?: No Counseling given: No Substance/Drug Use: former Adopted: No Caregiver/support person: No Lives independently: Yes Household members: other Details: She takes care of her granddaughter part of the time Housing: Other Details: [facility] Marital status: Number of children: 2 Number of grandchildren: 3 Highest education level completed: GED or Equivalent service: No Current occupational status: disabled Current occupational exposures/hazards: No Pets and animals: No Leisure activites: other Leisure activities details: swim Sexually active: No Do you think of yourself as: Straight/Heterosexual Current gender identity: Female Viviana/Druze: Sabianist Special viviana needs: No Agree to transfusion: Yes Financial difficulty paying for basics: Somewhat Hard Female Reproductive History: Para: 2 Date of menopause: 03/12/08 Physical Exam Const: COMMON NORMALS: patient oriented x3 and alert OTHER: Patient is ill-appearing. She is flushed and sweaty. HENMT: COMMON NORMALS: normocephalic, atraumatic, hearing grossly normal bilaterally and moist oral mucous membranes HEAD & SCALP: normocephalic and atraumatic Eye: COMMON NORMALS: Equal, round and reactive pupils present, EOMs intact bilaterally and conjunctivae normal CONJUNCTIVA: Yes conjunctivae normal PUPIL: Yes Equal, round and reactive pupils present Neck/C-Spine: COMMON NORMALS: full ROM and no JVD Lymph: LYMPHATIC: no lymphadenopathy noted Resp: COMMON NORMALS: normal respiratory effort, No retractions, No use of accessory muscles and clear to auscultation bilaterally AUSCULTATION: clear to auscultation bilaterally Cardio: COMMON NORMALS: no JVD and regular rhythm RATE: tachycardic RHYTHM: regular rhythm : COMMON NORMALS: Yes no CVA tenderness BLADDER/KIDNEY EXAM: Yes no CVA tenderness Back/Pelvis: COMMON NORMALS: no CVA tenderness, no thoracic nor lumbar tenderness and thoraco-lumbar ROM normal Extremity: COMMON NORMALS: normal to inspection, full ROM and capillary refill normal Neuro: COMMON NORMALS: patient oriented x3 SENSORIUM/ORIENTATION: Yes alert Psych: COMMON NORMALS: mental status grossly normal, Normal thought process present, cooperative, normal affect and activity/motor behavior normal THOUGHT PROCESS: Normal thought process present Skin: COMMON NORMALS: no rashes or lesions noted and no wounds GENERAL SKIN EXAM: no rashes or lesions noted Course Vital Signs: Vital signs: Vital Signs Temperature 98.5 F 11/14/22 21:57 Pulse Rate 100 11/15/22 00:41 Respiratory Rate 18 11/15/22 00:41 Blood Pressure 175/95 11/15/22 00:41 Pulse Oximetry 98 11/15/22 00:41 Oxygen Delivery Me thod Room Air 11/15/22 00:41 MDM - Back Pain/Injury Medical Decision Making Patient presents today appearing ill with tachycardia and elevated blood pressure readings. Patient has a recent history of urinary tract infection for which her family member indicates she is being referred to infectious disease for treatment at the end of the month. Still, her urinalysis is otherwise unremarkable here in the emergency department. However, patient presents appearing ill and we did proceed on with a septic work-up. Patient is afebrile and has no elevated white blood cell count but had an elevated lactic. No obvious findings through the lab work. Chest x-ray obtained which indicated concern for pneumonia. Patient received fluids and IV antibiotics. Upon recheck, patient is sitting up in the bed with her legs crossed, smiling, and appears much improved. Discussed with patient the finding of the pneumonia and recommendation to continue antibiotic treatment for the next 10 days. Recommended a recheck with her primary care doctor at the middle of next week or, went over strict return precautions for any change or worsening in her condition. Differential Diagnosis Likely pyelonephritis (UTI, urosepsis, dehydration, electrolyte abnormality) Labs 11/14/2211/14/22: Radiology Impressions Chest X-Ray 11/14/22 23:43 IMPRESSION: Mild left basilar atelectasis and/or pneumonia. Laboratory Results WBC 9.7 10^3/uL (4.0-10.0) 11/14/22: RBC 3.95 10^6/uL (4.1-5.3) L 11/14/22: Hgb 12.0 g/dL (11.5-15.3) 11/14/22 Hct 36.1 % (37.0-47.0) L 11/14/22 MCV 91.4 fl (81-99) 11/14/22 MCH 30.4 pg (28.0-34.0) 11/14/22 MCHC 33.2 g/dL (30.0-36.0) 11/14/22 RDW 12.0 % (12.1-15.1) L 11/14/22 23: Plt Count 268 10^3/cmm (130-400) 11/14/22 23: MPV 10.0 fL (7.4-10.4) 11/14/22 23: Neut % (Auto) 43.7 % 11/14/22 23: Lymph % (Auto) 43.0 % 11/14/22 23: [place] % (Auto) 7.6 % 11/14/22 23: Eos % (Auto) 3.0 % 11/14/22 23: Baso % (Auto) 0.8 % 11/14/22: Neut # (Auto) 4.24 10^3/uL (1.8-7.7) 11/14/22: Lymph # (Auto) 4.2 10^3/uL (0.8-4.8) 11/14/22: [place] # (Auto) 0.7 10^3/uL (0.2-0.9) 11/14/22: Eos # (Auto) 0.3 10^3/uL (0.0-0.8) 11/14/22: Baso # (Auto) 0.1 10^3/uL (0.0-0.1) 11/14/22: Nucleated RBC % (auto) 0 % 11/14/22: Nucleated RBCs # 0.0 /100WBC 11/14/22: ESR 11 mm/hr (0-15) 11/14/22 23: Sodium 136 mmol/L (136-145) 11/14/22 23: Potassium 4.0 mmol/L (3.5-5.1) 11/14/22: Chloride 98 mmol/L (98-107) 11/14/22: Carbon Dioxide 24 mmol/L (22-29) 11/14/22: Anion Gap 18.0 (5-19) 11/14/22: BUN 14 mg/dL (8-23) 11/14/22 23: Creatinine 0.7 mg/dL (0.5-0.9) 11/14/22: GFR Calculation 85.4 mL/min (90-130) L 11/14/22 23:26 Glucose 231 mg/dL (65-115) H 11/14/22 23:26 Calculated Osmolality 290 mOsm/kg (285-295) 11/14/22 23:26 Lactic Acid 3.3 mmol/L (0.5-2.2) H 11/14/22 23:26 Lactic Acid (Sepsis) 2.4 mmol/L (0.5-2.2) H 11/15/22 01:34 Calcium 9.8 mg/dL (8.5-10.5) 11/14/22 23: Magnesium 1.7 mg/dL (1.7-2.3) 11/14/22 23: Total Bilirubin 0.2 mg/dL (0.15-1.2) 11/14/22 23:26 AST 34 U/L (0-32) H 11/14/22 23:26 ALT 33 U/L (0-33) 11/14/22 23:26 Alkaline Phosphatase 68 U/L (35-105) 11/14/22 23:26 C-Reactive Protein 3.0 mg/L (0.0-4.9) 11/14/22 23:26 Total Protein 7.1 g/dL (6.6-8.7) 11/14/22 23:26 Albumin 4.4 g/dL (3.5-5.2) 11/14/22 23:26 Globulin 2.7 g/dL (1.3-4.6) 11/14/22 23:26 Lipase 129 U/L (13-60) H 11/14/22 23:26 Procalcitonin 0.06 ng/mL (0-0.5) 11/14/22 23:26 Urine Color Yellow (Yellow) 11/15/22: Urine Appearance Clear (CLEAR) 11/15/22: Urine pH 7 (5-7) 11/15/22: Ur Specific [place] 1.010 (1.005-1.030) 11/15/22: Urine Protein Neg (Negative) 11/15/22: Urine Glucose (UA) 4+ (Normal) H 11/15/22: Urine Ketones Negative (Negative) 11/15/22: Urine Blood Neg (Negative) 11/15/22 01:27 Urine Nitrate Negative (Negative) 11/15/22 01:27 Urine Bilirubin Neg (Negative) 11/15/22 01:27 Urine Urobilinogen Norm mg/dL (Negative) 11/15/22 01:27 Ur Leukocyte Esterase Negative (Negative) 11/15/22 01:27 Discharge Plan Discharge Patient Disposition: Home Clinical Impression: Pneumonia Condition: Stable Prescriptions: New doxycycline hyclate 100 mg tablet 100 mg PO BID 10 Days Qty: 20 0RF No Action gabapentin 300 mg capsule See Rx Instructions .ROUTE .COMPLEX Rx Instructions: 600 mg by mouth at bedtime uv-mi-ggfh-FA-Ca carb-vit K 18 mg iron-400 mcg-500 mg tablet 1 tab PO DAILY levothyroxine [Synthroid] 50 mcg tablet 50 mcg PO DAILY losartan [Cozaar] 25 mg tablet 25 mg PO DAILY fenofibrate nanocrystallized 145 mg tablet 145 mg PO DAILY albuterol sulfate 90 mcg/actuation HFA aerosol inhaler 2 puff inhalation Q6H PRN (Reason: Shortness Of Breath) Victoza 2-Vinny 0.6 mg/0.1 mL (18 mg/3 mL) pen injector 1.2 mg SUBCUT DAILY promethazine 25 mg tablet 25 mg PO BID PRN (Reason: nausea and vomiting) lorazepam 1 mg tablet 1 mg PO BID PRN (Reason: anxiety) Qty: 60 1RF bupropion HCl [Wellbutrin XL] 300 mg tablet extended release 24 hr 300 mg PO DAILY Qty: 30 1RF bupropion HCl [Wellbutrin XL] 150 mg tablet extended release 24 hr 150 mg PO QAM Qty: 30 1RF citalopram [Celexa] 40 mg tablet 40 mg PO DAILY Qty: 30 1RF propranolol 40 mg tablet 40 mg PO BID ibuprofen 200 mg Tablet 800 mg PO PRN metformin 500 mg tablet extended release 24 hr 1,000 mg PO QPM melatonin 10 mg Tablet 10 mg PO BEDTIME PRN (Reason: Sleep) Lantus U-100 Insulin 100 unit/mL Solution 40 unit SUBCUT BID Novolog U-100 Insulin aspart 100 unit/mL Solution See Rx Instructions .ROUTE .COMPLEX Rx Instructions: per sliding scale Seroquel 200 mg tablet 100 mg PO BEDTIME Seroquel 100 mg tablet 50 mg PO BEDTIME Discharge Orders: Discharge ED (Routine); Ordered 11/15/22 Ordered By: Solange Connor Referrals: Ria Pascual MD [Primary Care Provider] - Discharge Diet: Usual diet Discharge Activity: Increase activity as tolerated Patient Instructions: Pneumonia (ED) Activity Restrictions/Additional Instructions: Your evaluation today reveals no signs of any acute urinary concerns. While your work-up was concerning for significant illness, we were able to identify an area of lower lobe pneumonia on your chest x-ray. It is possible that you have been developing this pneumonia over the last couple of weeks and, as it has continued to progress you developed more and more symptoms leading to concerns of an early sepsis. However, your lab work for sepsis had already begun to improve to almost normal with fluids and medications provided here through the emergency department. We will continue your antibiotic treatment with a prescription to be filled at the pharmacy in the morning and taken as prescribed in its entirety. We recommend you try and push fluids to stay hydrated. We recommend a follow-up appoint with your primary care doctor at the middle of next week for a general recheck or, you should be seen and reevaluated here in the emergency department for any sudden spike in temperature, difficulty breathing, continued or worsening vomiting, or any chest pains. Coding Level of Care Code ED Environmental Field Technician for Renay Whittaker
--- NOTE | 2022-11-14 23:43 | XRR_ITS ---
PROCEDURE INFORMATION: Exam: XR Chest Exam date and time: 11/14/2022 11:49 PM Age: 62 years old Clinical indication: Other: Tachy, HTN TECHNIQUE: Imaging protocol: Radiologic exam of the chest. Views: 1 view. COMPARISON: CR XR chest 1V portable [id number] 08/18/2022 6:55 PM FINDINGS: Lungs: Mild left basilar atelectasis and/or pneumonia. Pleural spaces: Unremarkable. No pleural effusion. No pneumothorax. Heart/Mediastinum: Unremarkable. No cardiomegaly. Bones/joints: Unremarkable. XR/XR chest 1V [id number] IMPRESSION: Mild left basilar atelectasis and/or pneumonia.
[2022-11-14 23:51] LABS: Lactic Sepsis W/Reflex 3.3 mmol/L (0.5-2.2)
[2022-11-14 23:52] LABS: Alanine Aminotransferase 33 U/L (0-33); Albumin Level 4.4 g/dL (3.5-5.2); Alkaline Phosphatase 68 U/L (35-105); Aspartate Amino Transferase 34 U/L (0-32); Blood Urea Nitrogen 14 mg/dL (8-23); Calcium 9.8 mg/dL (8.5-10.5); Carbon Dioxide 24 mmol/L (22-29); Chloride 98 mmol/L (98-107); Globulin 2.7 g/dL (1.3-4.6); Glomerular Filtration Rate 85.4 mL/min (90-130); Glucose 231 mg/dL (65-115); Magnesium 1.7 mg/dL (1.7-2.3); Osmolality Calculated 290 mOsm/kg (285-295); Sodium 136 mmol/L (136-145); Total Bilirubin 0.2 mg/dL (0.15-1.2); Total Protein 7.1 g/dL (6.6-8.7)
[2022-11-14] MEDS: ondansetron 2 mg/ML SDV 2 mL 4 MG IVP (23:56)
[2022-11-14] MEDS: sodium chloride 0.9% 1,000 ML 999 ML IV (23:56)
[2022-11-14 23:57] LABS: Lipase 129 U/L (13-60)
[2022-11-14 23:59] LABS: Procalcitonin 0.06 ng/mL (0-0.5)
[2022-11-15] MEDS: sodium chloride 0.9% 1,000 ML 999 ML IV (00:34)
[2022-11-15] MEDS: morphine 4 mg/mL SDV 1 mL IVP (00:39)
[2022-11-15 00:41] VITALS: BP 175/95; PULSE 100; RESP 18; O2SAT 98
[2022-11-15 01:18] LABS: Reflex Lactate Order REFLEX LACTIC ORDERD
[2022-11-15 01:49] LABS: Add Urine Microscopic? NO; Charge for UA Resulting for Rev
[2022-11-15 01:53] LABS: Bilirubin Urine Neg (Negative); Blood Urine Neg (Negative); Glucose Urine UA 4+ (Normal); Ketones Urine Negative (Negative); Leukocyte Esterase Urine Negative (Negative); Nitrate Urine Negative (Negative); Protein Urine Neg (Negative); Urine Appearance Clear (CLEAR); Urine Color Yellow (Yellow); Urobilinogen Urine Norm (Negative); pH Urine 7 (5-7)
[2022-11-15 01:53] LABS: Lactic Acid level (Lactate) 2.4 mmol/L (0.5-2.2)
[2022-11-15 02:00] VITALS: BP 158/84; PULSE 99; O2SAT 96
[2022-11-15 03:00] VITALS: BP 165/89; PULSE 97; O2SAT 97
[2022-11-15] MEDS: doxycycline 100 MG in sodium chloride 0.9% (plus) 100 ML IV (03:14)
[2022-11-15] MEDS: fentaNYL 50 mcg/mL INJ 2mL 25 MCG IVP (04:12)
[2022-11-15 04:23] VITALS: BP 188/96; PULSE 97; RESP 16; O2SAT 95
== END 2022-11-15 04:19 | disposition home or self-care (01) ==
PROVIDERS: Emergency Provider Physician Assistant; PCP Family Medicine
DX: J18.9 Pneumonia, unspecified organism (principal); Z79.4 Long term (current) use of insulin; Z79.84 Long term (current) use of oral hypoglycemic drugs; Z87.891 Personal history of nicotine dependence; Z86.19 Personal history of other infectious and parasitic diseases; I10 Essential (primary) hypertension; E11.9 Type 2 diabetes mellitus without complications
CPT/HCPCS: 36415; 71045; 80053; 81003; 83605; 83690; 83735; 84145; 85025; 85651; 86140; 87040; 96361; 96374; 96375; 99284; J2270; J2405; J3010; J3490; J7030

== ENCOUNTER 2023-07-20 13:31 | Emergency (ER) | payer MEDICAID, SELFPAY ==
[2021-03-28 10:26] VITALS: BP 164/98; BMI 34.0
--- NOTE | 2023-07-20 13:32 | XR_ITS ---
WS: [id number] PORTABLE CHEST HISTORY: chest pain COMPARISON: 11/14/2022 Lungs are clear and well expanded. No pleural effusion or pneumothorax. Cardiac size: Normal. Mediastinum/Aorta: Normal mediastinum. No osseous abnormality seen. IMPRESSION: Unremarkable portable chest.
[2023-07-20 13:43] LABS: Basophils # 0.1 10^3/uL (0.0-0.1); Basophils % 0.9 %; Eosinophils # 0.3 10^3/uL (0.0-0.8); Eosinophils % 2.8 %; Hematocrit 43.2 % (36-47); Lymphocytes # 2.8 10^3/uL (0.8-4.8); Mean Corpuscular HGB Conc 34.5 g/dL (30-55); Mean Corpuscular Hemoglobin 30.4 pg (27-33); Mean Corpuscular Volume 88.2 fl (85-98); Mean Platelet Volume 10.2 fL (7.4-10.4); Monocytes # 0.8 10^3/uL (0.2-0.9); Monocytes % 8.5 %; Neutrophils # 4.94 10^3/uL (1.8-7.7); Neutrophils % 55.6 %; Nucleated Red Blood Cells % 0 %; Platelet Count 303 10^3/cmm (157-399); Red Cell Distribution Width 12.1 % (12.1-15.1)
--- NOTE | 2023-07-20 13:43 | ECG_ITS ---
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 Measurements Intervals [place] Rate: 87 P: 51 [place]: 166 QRS: 4 QRSD: 87 T: 61 QT: 374 QTc: 452 Interpretive Statements SINUS RHYTHM ANTEROSEPTAL MYOCARDIAL INFARCTION , PROBABLY OLD [40+ ms Q WAVE IN V1-V4] Compared to ECG 08/18/2022 19:01:51 No significant changes Electronically Signed On 07-20-2023 21:42:23 SENIOR STORAGE ADMINISTRATOR by Noris French M.D. [email or web address]
--- NOTE | 2023-07-20 13:48 | ED_ITS ---
HPI - Chest Pain 2 General: Chief Complaint: Chest Pain Stated Complaint: Chest pain, High BP Time Seen by Provider: 07/20/23 13:32 Source: patient Mode of arrival: EMS History of Present Illness: 63-year-old female presents emergency ro om with complaint of not feeling well and elevated blood pressure. She states she has a headache just general body aches several other family members have been ill. Stated complaint list chest pain however she denies having chest pain at the time that I seen her. She has a history of diabetes mellitus. No known history of coronary artery disease. Blood pressures are markedly elevated as well. MD complaint: chest pain Associated symptoms: Deny abdominal pain, dyspnea or fever(s) Review of Systems 2 Const: Denies: fever(s) or chills Card: Denies: chest pain Resp: Denies: dyspnea GI: Denies: abdominal pain : Denies: dysuria, urinary frequency or urinary urgency Musc: Denies: neck pain or back pain Skin/Breast: Denies: rash PFSH ED 2 PFSH: Medical History Grief Psychiatric care Other stimulant dependence, in remission Hypertension Type 2 diabetes mellitus Hepatitis C Recurrent pancreatitis Major depressive disorder, recurrent severe without psychotic features Surgical History History of appendectomy Family History Mother Clotting disorder Hypertension Father Diabetes Hypertension Hyperlipidemia Grandmother Hypertension Diabetes Other Major depressive disorder, recurrent severe without psychotic features Social History Smoking and tobacco/nicotine status: former use of tobacco/nicotine Quit status (tobacco/nicotine): has quit using Year quit tobacco: 2019 Second hand smoke exposure: Yes Alcohol intake: never Substance/Drug Use: former Adopted: No Caregiver/support person: No Lives independently: Yes Household members: other Details: She takes care of her granddaughter part of the time Housing: Other Details: [facility] Marital status: Number of children: 2 Number of grandchildren: 3 Highest education level completed: GED or Equivalent service: No Current occupational status: disabled Current occupational exposures/hazards: No Pets and animals: No Leisure activites: other Leisure activities details: swim Sexually active: No Do you think of yourself as: Straight/Heterosexual Current gender identity: Female Viviana/Jainism: Muslim Special viviana needs: No Agree to transfusion: Yes Female Reproductive History: Para: 2 Date of menopause: 03/12/08 Physical Exam 2 Const: COMMON NORMALS: no acute distress GENERAL APPEARANCE: cooperative and comfortable ORIENTATION/CONSCIOUSNESS: Yes awake, Yes oriented to person, Yes oriented to place and Yes oriented to time HENMT: COMMON NORMALS: normocephalic, atraumatic and hearing grossly normal bilaterally HEAD & SCALP: normocephalic and atraumatic Resp: COMMON NORMALS: normal respiratory effort, No retractions, No use of accessory muscles and clear to auscultation bilaterally AUSCULTATION: clear to auscultation bilaterally Cardio: COMMON NORMALS: regular rate, regular rhythm and No murmurs present (Cardio) RATE: regular rate RHYTHM: regular rhythm GI: COMMON NORMALS: Soft to palpation and No hepatosplenomegaly present A USCULTATION: Yes normoactive bowel sounds PALPATION: Yes Soft to palpation, No Tenderness to palpation present (GI), No Guarding due to palpation present (GI) and Yes No hepatosplenomegaly present Extremity: COMMON NORMALS: normal to inspection, capillary refill normal, no clubbing, cyanosis or edema, no calf tenderness and no pedal edema Neuro: SENSORIUM/ORIENTATION: Yes oriented to person, Yes oriented to place and Yes oriented to time Skin: COMMON NORMALS: no rashes or lesions noted GENERAL SKIN EXAM: no rashes or lesions noted Course 2 Vital Signs: Vital signs: Vital Signs Pulse Rate 82 07/20/23 15:14 Respiratory Rate 26 H 07/20/23 15:14 Blood Pressure 193/89 07/20/23 16:35 Pulse Oximetry 94 07/20/23 16:35 Oxygen Delivery Me thod Room Air 07/20/23 16:35 MDM - Chest Pain Medical Decision Making Acute hyperglycemia improved with medications given. EKG does not show acute changes troponins unremarkable. Discharge patient home patient given detailed instructions on increasing Lantus as well as adjustments to blood pressure medications. Stop propranolol changed to Toprol increase losartan and increase Lantus to 55 units if not improving blood sugar increased to 60 twice a day in the next 3 to 5 days follow-up with primary care Medical Records I reviewed the patient's medical records. Lab Data I reviewed the patient's lab results. 07/20/23 13:25 07/20/23 13:25 Laboratory Results WBC 8.90 10^3/uL (3.29-11.43) 07/20/23 13:25 RBC 4.90 10^6/uL (3.85-5.65) 07/20/23 13:25 Hgb 14.90 g/dL (11.27-16.99) 07/20/23 13:25 Hct 43.2 % (36-47) 07/20/23 13:25 MCV 88.2 fl (85-98) 07/20/23 13:25 MCH 30.4 pg (27-33) 07/20/23 13:25 MCHC 34.5 g/dL (30-55) 07/20/23 13:25 RDW 12.1 % (12.1-15.1) 07/20/23 13:25 Plt Count 303 10^3/cmm (157-399) 07/20/23 13:25 MPV 10.2 fL (7.4-10.4) 07/20/23 13:25 Neut % (Auto) 55.6 % 07/20/23 13:25 Lymph % (Auto) 31.0 % 07/20/23 13:25 Callahan % (Auto) 8.5 % 07/20/23 13:25 Eos % (Auto) 2.8 % 07/20/23 13:25 Baso % (Auto) 0.9 % 07/20/23 13:25 Neut # (Auto) 4.94 10^3/uL (1.8-7.7) 07/20/23 13:25 Lymph # (Auto) 2.8 10^3/uL (0.8-4.8) 07/20/23 13:25 Callahan # (Auto) 0.8 10^3/uL (0.2-0.9) 07/20/23 13:25 Eos # (Auto) 0.3 10^3/uL (0.0-0.8) 07/20/23 13:25 Baso # (Auto) 0.1 10^3/uL (0.0-0.1) 07/20/23 13:25 Nucleated RBC % (auto) 0 % 07/20/23 13:25 Nucleated RBCs # 0.0 /100WBC 07/20/23 13:25 Sodium 131 mmol/L (136-145) L 07/20/23 13:25 Potassium 5.0 mmol/L (3.5-5.1) 07/20/23 13:25 Chloride 91 mmol/L (98-107) L 07/20/23 13:25 Carbon Dioxide 24 mmol/L (22-29) 07/20/23 13:25 Anion Gap 21.0 (5-19) H 07/20/23 13:25 BUN 18 mg/dL (8-23) 07/20/23 13:25 Creatinine 0.7 mg/dL (0.5-0.9) 07/20/23 13:25 GFR Calculation 85.1 mL/min (90-130) L 07/20/23 13:25 Glucose 502 mg/dL (65-115) H* 07/20/23 13:25 POC Glucose 437 mg/dL (70-110) H 07/20/23 15:11 Calculated Osmolality 296 mOsm/kg (285-295) H 07/20/23 13:25 Calcium 11.0 mg/dL (8.5-10.5) H 07/20/23 13:25 Total Bilirubin 0.6 mg/dL (0.15-1.2) 07/20/23 13:25 AST 66 U/L (0-32) H 07/20/23 13:25 ALT 59 U/L (0-33) H 07/20/23 13:25 Alkaline Phosphatase 162 U/L (35-105) H 07/20/23 13:25 Troponin T Baseline 7 ng/L (0-10) 07/20/23 13:25 Troponin T 120 Minute 7.59 ng/L (0-10) 07/20/23 15:10 Delta Troponin T 0.59 ABS# (0-10) 07/20/23 15:10 Total Protein 8.5 g/dL (6.6-8.7) 07/20/23 13:25 Albumin 5.0 g/dL (3.5-5.2) 07/20/23 13:25 Globulin 3.5 g/dL (1.3-4.6) 07/20/23 13:25 Urine Color Yellow (Yellow) 07/20/23 14:49 Urine Appearance Clear (CLEAR) 07/20/23 14:49 Urine pH 7 (5-7) 07/20/23 14:49 Ur Specific Lyman 1.005 (1.005-1.030) 07/20/23 14:49 Urine Protein 3+ (Negative) H 07/20/23 14:49 Urine Glucose (UA) 4+ (Normal) H 07/20/23 14:49 Urine Ketones 1+ (Negative) H 07/20/23 14:49 Urine Blood Neg (Negative) 07/20/23 14:49 Urine Nitrate Negative (Negative) 07/20/23 14:49 Urine Bilirubin Neg (Negative) 07/20/23 14:49 Urine Urobilinogen Norm mg/dL (Negative) 07/20/23 14:49 Ur Leukocyte Esterase Negative (Negative) 07/20/23 14:49 Urine RBC 0-4 /hpf (0-2) H 07/20/23 14:49 Urine WBC 0-4 /hpf (0-5) H 07/20/23 14:49 Ur Squamous Epith Cells 0-4 /hpf (0-5) H 07/20/23 14:49 Other Crystals Starch /hpf 07/20/23 14:49 Amorphous Sediment Not Reportable 07/20/23 14:49 Urine Bacteria Trace /hpf (NONE) 07/20/23 14:49 Urine Mucus None /hpf 07/20/23 14:49 Urine Yeast 2+ /hpf H 07/20/23 14:49 Influenza Type A Ag negative (Negative) 07/20/23 14:55 Influenza Type B Ag negative (Negative) 07/20/23 14:55 SARS-CoV-2 Ag (Rapid) negative (Negative) 07/20/23 14:55 All radiology interpretation(s) finalized by discharge Discharge Plan Discharge Patient Disposition: Home Clinical Impression: Atypical chest pain, Acute hyperglycemia, Hypertension Condition: Stable Prescriptions: New Toprol XL 50 mg tablet extended release 24 hr 50 mg PO DAILY Qty: 30 0RF Cozaar 100 mg tablet 100 mg PO DAILY Qty: 30 0RF Discontinued propranolol 40 mg tablet 40 mg PO BID No Action levothyroxine [Synthroid] 50 mcg tablet 50 mcg PO DAILY losartan [Cozaar] 25 mg tablet 25 mg PO DAILY fenofibrate nanocrystallized 145 mg tablet 145 mg PO DAILY albuterol sulfate 90 mcg/actuation HFA aerosol inhaler 2 puff inhalation Q6H PRN (Reason: Shortness Of Breath) lorazepam 1 mg tablet 1 mg PO BID PRN (Reason: anxiety) Qty: 60 3RF quetiapine [Seroquel] 50 mg tablet 50 mg PO BEDTIME Qty: 30 3RF promethazine 25 mg tablet 25 mg PO BID PRN (Reason: nausea and vomiting) ibuprofen 200 mg Tablet 800 mg PO PRN PRN (Reason: Pain) pantoprazole 40 mg tablet,delayed release (DR/EC) 40 mg PO DAILY bupropion HCl [Wellbutrin XL] 300 mg tablet extended release 24 hr 300 mg PO QAM insulin glargine [Lantus U-100 Insulin] 100 unit/mL Solution 40 unit SUBCUT BID insulin aspart U-100 [Novolog U-100 Insulin aspart] 100 unit/mL Solution See Rx Instructions .ROUTE .COMPLEX Rx Instructions: 48 UNITS 3 TIMES DAILY per sliding scale Discharge Orders: Discharge ED (Routine); Ordered 07/20/23 Ordered By: Eamon Chakraborty Referrals: Ria Pascual MD [Primary Care Provider] - Discharge Diet: Diabetic Discharge Activity: Increase activity as tolerated Patient Instructions: Opioid Safety, Pain Management Activity Restrictions/Additional Instructions: Thank you for choosing [facility] for your healthcare needs today. Please realize this is an emergency room and that we are providing you with a medical screening exam and this may not be complete and all inclusive of all the testing and or work up that you may need to determine your ailment or severity of your illness. It is very important that you follow up as instructed or that you return to the Emergency Department should you have concerns or if your condition changes or worsens in any way. Recommend that you make the following medication changes: 1.Stop propranolol 2. Start Toprol XL 50 mg daily 3. Increase your losartan to 100 mg daily 4. Increase your Lantus to 50 mg twice a day, if your blood sugars are still generally over 350 half of the time increase your Lantus to 55 mg twice a day and 4 to 5 days. Follow-up with your doctor within the week. 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
[2023-07-20] MEDS: hyDRALAzine 20 mg/mL INJ 1 mL 10 MG IVP (13:54)
[2023-07-20] MEDS: metoprolol tartrate 1 mg/1 mL SDV 5 mL 2.5 MG IVP (13:56)
[2023-07-20] MEDS: metoprolol tartrate 25 mg Tablet PO (13:56)
[2023-07-20] MEDS: aspirin 81 mg Chew Tablet 324 MG PO (13:57)
[2023-07-20 14:07] VITALS: BP 174/88
[2023-07-20 14:08] LABS: Alanine Aminotransferase 59 U/L (0-33); Alkaline Phosphatase 162 U/L (35-105); Aspartate Amino Transferase 66 U/L (0-32); Blood Urea Nitrogen 18 mg/dL (8-23); Carbon Dioxide 24 mmol/L (22-29); Chloride 91 mmol/L (98-107); Globulin 3.5 g/dL (1.3-4.6); Glomerular Filtration Rate 85.1 mL/min (90-130); Osmolality Calculated 296 mOsm/kg (285-295); Sodium 131 mmol/L (136-145); Total Bilirubin 0.6 mg/dL (0.15-1.2); Total Protein 8.5 g/dL (6.6-8.7); Troponin(5th) Baseline 7 ng/L (0-10)
[2023-07-20 14:13] LABS: Glucose 502 mg/dL (65-115)
[2023-07-20 15:11] LABS: Glucose Urine UA 4+ (Normal); Protein Urine 3+ (Negative); Specific Gravity, Urine 1.005 (1.005-1.030); Urine Appearance Clear (CLEAR); Urine Color Yellow (Yellow); pH Urine 7 (5-7)
[2023-07-20 15:12] LABS: Add Urine Microscopic? YES; Bilirubin Urine Neg (Negative); Blood Urine Neg (Negative); Ketones Urine 1+ (Negative); Leukocyte Esterase Urine Negative (Negative); Nitrate Urine Negative (Negative); Urobilinogen Urine Norm (Negative)
[2023-07-20] MEDS: sodium chloride 0.9% 1,000 ML 999 ML IV (15:12)
[2023-07-20] MEDS: insulin regular-human 100 units/1 mL 15 UNIT IVP (15:13)
[2023-07-20 15:14] VITALS: BP 191/105; PULSE 82; RESP 26; O2SAT 95
[2023-07-20 15:14] LABS: Bacteria Urine TRACE /hpf; RBC Urine 0-4 /hpf (0-2); Squamous Epithelial Cell Urine 0-4 /hpf (0-5); WBC Urine 0-4 /hpf (0-5)
[2023-07-20 15:15] LABS: Add Urine Culture? No; Other Crystals Urine STARCH /hpf
--- NOTE | 2023-07-20 15:15 | PC.NURSE ---
glucose via fingerstick prior to 15 units of insulin administration was 437.
[2023-07-20 15:21] LABS: Glucose Point of Care 437 mg/dL (70-110)
[2023-07-20 15:24] LABS: Influenza A by IFA negative (Negative); Influenza B by IFA negative (Negative)
[2023-07-20 15:26] LABS: SARS Covid-2 Antigen negative (Negative)
[2023-07-20 15:35] LABS: Troponin 5 2HR 7.59 ng/L (0-10); Troponin 5 2HR Delta 0.59 ABS# (0-10)
--- NOTE | 2023-07-20 15:39 | ECG_ITS ---
[facility] Test Date: 2023-07-20 Pat Name: Heidi Quintanilla Department: Room: Gender: Female Handkerchief Presser: : [id number] Requested By: Eamon Perez Order Number: [id number] Tana MD: Noris French M.D. Measurements Intervals [place] Rate: 92 P: 130 HI: 163 QRS: 16 QRSD: 92 T: 99 QT: 364 QTc: 450 Interpretive Statements SINUS RHYTHM with frequent PVCs POSSIBLE LEFT ATRIAL ENLARGEMENT [-0.1mV P-WAVE IN V1/V2] ANTEROSEPTAL MYOCARDIAL INFARCTION , OF INDETERMINATE AGE [40+ ms Q WAVE IN V1-V4] CRITICAL TEST RESULT Compared to ECG 07/20/2023 13:43:42 Frequent PVCs are new compared to previous study from 08/18/2022 Myocardial infarct finding still present Electronically Signed On 07-20-2023 21:50:20 FAMILY PRESERVATION OFFICER by Noris French M.D. [id number]
[2023-07-20 16:35] VITALS: BP 193/89; O2SAT 94
--- NOTE | 2023-07-20 17:08 | PC.NURSE ---
discharge delayed d/t ED physician ordering medications post discharge orders. medications currently out of stock in [facility].
[2023-07-20] MEDS: ketorolac 30 mg/mL INJ IVP (17:11)
[2023-07-20] MEDS: metoclopramide 5 mg/mL SDV 2 mL 10 MG IVP (17:11)
== END 2023-07-20 17:12 | disposition home or self-care (01) ==
PROVIDERS: Emergency Provider Family Medicine; PCP Family Medicine
DX: R07.89 Other chest pain (principal); I10 Essential (primary) hypertension; E11.65 Type 2 diabetes mellitus with hyperglycemia; Z86.19 Personal history of other infectious and parasitic diseases; Z87.891 Personal history of nicotine dependence; Z11.52 Encounter for screening for COVID-19; Z79.4 Long term (current) use of insulin
CPT/HCPCS: 36415; 36416; 71045; 80053; 81001; 82962; 84484; 85025; 87426; 87804; 93005; 96361; 96374; 96375; 99285; J0360; J1815; J1885; J2765; J3490; J7030

== ENCOUNTER → 2023-08-14 11:24 | Outpatient (BNVA) | payer MEDICAID, SELFPAY ==
[2021-03-28 10:26] VITALS: BP 164/98; BMI 34.0
== END ==
PROVIDERS: PCP Family Medicine; Visit Provider Emergency Medicine
DX: J02.9 Acute pharyngitis, unspecified (principal)
CPT/HCPCS: 87071; 87880

== ENCOUNTER → 2023-08-30 08:22 | Outpatient (BNVA) | payer SELFPAY ==
[2023-08-23 06:40] VITALS: BP 164/98; BMI 34.0
== END ==
PROVIDERS: PCP Family Medicine; Visit Provider Nurse Practitioner Psychiatric/Mental Health
DX: F33.2 Major depressive disorder, recurrent severe without psychotic features (principal); Z79.899 Other long term (current) drug therapy
CPT/HCPCS: 80061; 83036; 83721

== ENCOUNTER → 2023-11-09 12:44 | Outpatient (BNVA) | payer OTHER, SELFPAY ==
[2023-09-03 15:25] VITALS: BP 174/101; BMI 34.3
== END ==
PROVIDERS: PCP Family Medicine; Visit Provider Nurse Practitioner Psychiatric/Mental Health
DX: F03.918 Unspecified dementia, unspecified severity, with other behavioral disturbance (principal); Z79.899 Other long term (current) drug therapy; F33.2 Major depressive disorder, recurrent severe without psychotic features; F15.21 Other stimulant dependence, in remission
CPT/HCPCS: 80053; 82306; 82607; 82746; 83036

== ENCOUNTER 2024-04-03 16:58 | Inpatient (IN) | payer MEDICAID, SELFPAY ==
[2023-09-03 15:25] VITALS: BP 174/101; BMI 34.3
[2024-04-03 17:15] VITALS: BP 137/78; PULSE 81; RESP 15; TEMP 36.8; O2SAT 97; BMI 27.9
--- NOTE | 2024-04-03 18:03 | CTR_ITS ---
PROCEDURE INFORMATION: Exam: CT Chest With Contrast; Diagnostic Exam date and time: 04/03/2024 7:50 PM Age: 63 years old Clinical indication: Mass, lump, or swelling in the chest; Additional info: Right chest wall abscess/mass TECHNIQUE: Imaging protocol: Diagnostic computed tomography of the chest with contrast. Radiation optimization: All CT scans at this facility use at least one of these dose optimization techniques: automated exposure control; mA and/or kV adjustment per patient size (includes targeted exams where dose is matched to clinical indication); or iterative reconstruction. Contrast material: OMNI 350; Contrast volume: 100 ml; Contrast route: INTRAVENOUS (IV); COMPARISON: CT chest wo con [id number] 12/21/2019 3:16 PM RADIATION DOSE METRICS: Total DLP (mGy-cm): 436.46 FINDINGS: Lungs: Right upper lobe 2.7 mm pulmonary nodule series 3 image 37, not seen with certainty on prior exam. Left lower lobe superior segment 5.4 mm nodule abutting the undersurface of the major fissure similar to prior exam series 3, image 35. Pleural spaces: Unremarkable. No pneumothorax. No pleural effusion. Heart: Mild coronary artery atherosclerotic disease suspected. Lymph nodes: Unremarkable. No enlarged lymph nodes. Vasculature: Unremarkable. No aortic aneurysm. Adrenal glands: Left adrenal 4.2 cm fat density benign myelolipoma. Bones/joints: Unremarkable. No acute fracture. Soft tissues: Right medial chest/breast 5.8 cm localized area of edema without focal fluid collection may reflect an area of cellulitis, other etiologies including neoplasm are not excluded, further evaluation with dedicated breast imaging advised. CT/CT chest w con* [id number] IMPRESSION: 1. Right medial chest/breast 5.8 cm localized area of edema without focal fluid collection may reflect an area of cellulitis, other etiologies including neoplasm are not excluded, further evaluation with dedicated breast imaging advised. 2. Left adrenal 4.2 cm fat density benign myelolipoma. 3. Mild coronary artery atherosclerotic disease suspected. 4. Right upper lobe 2.7 mm pulmonary nodule series 3 image 37, not seen with certainty on prior exam. Left lower lobe superior segment 5.4 mm nodule abutting the undersurface of the major fissure similar to prior exam series 3, image 35. For patients at low risk (minimal or absent history of smoking and of other known risk factors), no routine follow-up is indicated. For patients at high risk (history of smoking or of other known risk factors), consider optional CT Chest at 12 months. (Reference: Toni) REFERENCES: Toni Galvez, et al. Guidelines for Management of Incidental Pulmonary Nodules Detected on CT Images: From the Fleischner Society 2017. Radiology. 2017;284(1):228-243.
[2024-04-03 19:10] LABS: Basophils # 0.1 10^3/uL (0.0-0.1); Basophils % 0.7 %; Eosinophils # 0.5 10^3/uL (0.0-0.8); Eosinophils % 2.5 %; Hematocrit 34.4 % (36-47); Lymphocytes # 4.1 10^3/uL (0.8-4.8); Lymphocytes % 22.2 %; Mean Corpuscular HGB Conc 34.3 g/dL (30-55); Mean Corpuscular Hemoglobin 29.6 pg (27-33); Mean Corpuscular Volume 86.4 fl (85-98); Mean Platelet Volume 9.9 fL (7.4-10.4); Monocytes # 1.5 10^3/uL (0.2-0.9); Monocytes % 7.9 %; Nucleated Red Blood Cells % 0 %; Platelet Count 421 10^3/cmm (157-399); Red Blood Count 3.98 10^6/uL (3.85-5.65); Red Cell Distribution Width 11.7 % (12.1-15.1); White Blood Count 18.41 10^3/uL (3.29-11.43)
[2024-04-03 19:17] LABS: Erythrocyte Sedimentation Rate 55 mm/hr (0-15)
--- NOTE | 2024-04-03 19:21 | ED_ITS ---
HPI - Skin/Abscess/Foreign Bdy 2 General: Chief complaint: Skin/Abscess/Foreign Body Stated complaint: lump on chest Time Seen by Provider: 04/03/24 18:00 History of Present Illness: 63-year-old female with a history of hansel betes, hypothyroidism some mild dementia and hypertension who presents to the emergency room with chest wall pain, swelling and redness. She was placed on Bactrim few days ago but has not improved. She is gotten worse. She had the pain has become much worse. She has a very large red area with some fluctuance and a central eschar just above her right breast. She has redness and swelling and warmth going down into her breast. No known fevers. No altered mental status. No focal motor deficits. No nausea or vomiting. No abdominal pain. She says this all started about a week and a half ago. She has been on antibiotics for a few days now. Related Data Home Medications Medication Instructions Recorded Confirmed ibuprofen 200 mg tablet 800 mg PO PRN PRN Pain 02/26/20 03/30/24 albuterol sulfate 90 mcg/actuation 2 puff inhalation Q6H PRN 03/25/21 03/30/24 aerosol inhaler Shortness Of Breath fenofibrate nanocrystallized 145 145 mg PO DAILY 03/25/21 03/30/24 mg tablet levothyroxine 50 mcg tablet 50 mcg PO DAILY 03/25/21 03/30/24 (Synthroid) promethazine 25 mg tablet 25 mg PO BID PRN nausea and 04/24/21 03/30/24 vomiting insulin aspart U-100 100 unit/mL See Rx Instructions .Route .COMPLEX 08/18/22 03/30/24 subcutaneous solution (Novolog U-100 Insulin aspart) insulin glargine 100 unit/mL 40 unit SUBCUT BID 08/18/22 03/30/24 subcutaneous solution (Lantus U-100 Insulin) pantoprazole 40 mg tablet,delayed 40 mg PO DAILY 07/20/23 03/30/24 release Previous Rx's Medication Instructions Recorded losartan 100 mg tablet (Cozaar) 100 mg PO DAILY #30 tabs 07/20/23 lorazepam 1 mg tablet 1 mg PO BID PRN anxiety #60 tabs 03/06/24 sulfamethoxazole 800 1 tab PO BID 7 days #14 tabs 03/28/24 mg-trimethoprim 160 mg tablet (Bactrim DS) brexpiprazole 1 mg tablet (Rexulti) 1 mg PO .8 am #30 tabs 03/30/24 gabapentin 300 mg capsule 300 mg PO BID #60 caps 03/30/24 memantine 5 mg tablet 5 mg PO BID #60 tabs 03/30/24 Allergies Allergy/AdvReac Type Severity Reaction Status Date / Time codeine Allergy Unknown Verified 04/03/24 17:22 hydrocodone Allergy Unknown Verified 04/03/24 17:22 Review of Systems 2 Narrative: Constitutional symptoms: Negative except as documented in HPI. Skin symptoms: Negative except as documented in HPI. Eye symptoms: Negative except as documented in HPI. ENMT symptoms: Negative except as documented in HPI. Respiratory symptoms: Negative except as documented in HPI. Cardiovascular symptoms: Negative except as documented in HPI. Gastrointestinal symptoms: Negative except as documented in HPI. Genitourinary symptoms: Negative except as documented in HPI. Musculoskeletal symptoms: Negative except as documented in HPI. Neurologic symptoms: Negative except as documented in HPI. Psychiatric symptoms: Negative except as documented in HPI. Endocrine symptoms: Negative except as documented in HPI. PFSH ED 2 PFSH: Medical History (Updated 04/03/24 @ 22:07 by Kacie Dc MD) Dementia with behavioral disturbance Grief Psychiatric care Other stimulant dependence, in remission Methamphetamine-last use 2019 Started at age 52 to 57 yr old Hypertension Type 2 diabetes mellitus Hepatitis C Recurrent pancreatitis Major depressive disorder, recurrent severe without psychotic features Surgical History History of appendectomy Family History Mother Clotting disorder Hypertension Father Diabetes Hypertension Hyperlipidemia Grandmother Hypertension Diabetes Other Major depressive disorder, recurrent severe without psychotic features Social History (Updated 08/30/23 @ 08:32 by Sharonda Armijo RN) Smoking and tobacco/nicotine status: unknown if used tobacco/nicotine Quit status (tobacco/nicotine): has quit using Year quit tobacco: 2019 Second hand smoke exposure: No Alcohol intake: current Alcohol intake frequency: holidays/special occasions only Alcohol type: hard liquor Substance/Drug Use: former Former substance use details: 3 1/2 years clean from meth, cocaine, heroin Adopted: No Caregiver/support person: No Lives independently: Yes Household members: other Details: She takes care of her granddaughter part of the time Housing: Apartment Marital status: Number of children: 2 Number of grandchildren: 6 Highest education level completed: GED or Equivalent service: No Current occupational status: disabled Current occupational exposures/hazards: No Pets and animals: No Leisure activites: other Leisure activities details: watch TV Sexually active: No Do you think of yourself as: Straight/Heterosexual Current gender identity: Female Viviana/Religious: Religion Special viviana needs: No Agree to transfusion: Yes Female Reproductive History: Para: 2 Date of menopause: 03/12/08 Physical Exam 2 Narrative: EXAM NARRATIVE: General: Alert, no acute distress. Skin: Warm, dry. Large area of induration and fluctuance o just above the right chest on the chest wall. Central eschar. Erythema and edema and warmth going down the entirety of the rest of the breast. Head: Normocephalic, atraumatic. Neck: Supple, trachea midline. Eye: Extraocular movements are intact. Ears, nose, mouth and throat: mucosa moist. Cardiovascular: Regular, Normal peripheral perfusion. Respiratory: Lungs are clear to auscultation, respirations are non-labored, breath sounds are equal, Symmetrical chest wall expansion. Gastrointestinal: Soft, Nontender, Non distended Musculoskeletal: Normal ROM, no deformity. Neurological: Alert and oriented, No focal neurological deficit observed. Psychiatric: Cooperative, appropriate mood & affect. Course 2 Vital Signs: Vital signs: Vital Signs Temperature 98.2 F 04/03/24 17:15 Pulse Rate 65 04/03/24 21:57 Respiratory Rate 14 04/03/24 21:57 Blood Pressure 180/85 04/03/24 21:57 Pulse Oximetry 92 04/03/24 21:57 Oxygen Delivery Me thod Room Air 04/03/24 21:57 MDM - Skin/Abscess/Foreign Bdy Medicial Decision Making Medical decision making: Differential diagnosis including but not limited to and based on the above HPI, review of systems and physical exam: Concern for abscess. Sepsis. In this diabetic with worry about hyperglycemia. Renal failure. Orders placed to evaluate differential diagnosis based on the above differential, HPI and physical exam Lab Review: Laboratory results were reviewed and interpreted by myself the emergency room physician. Leukocytosis with a white count of 18.4. Hemoglobin is 11.8. BUN and creatinine are normal at 13 and 0.9. Her sugar is elevated at 456. CT of the chest with contrast: Right medial 5.8 cm localized area of edema without focal fluid collection. May be cellulitis or other etiologies. Also could be neoplasm. This was reviewed and interpreted by myself the emergency room physician. I also reviewed the radiology report. I reviewed the patient's medical record. Reexamination: Patient remained stable. No increased work of breathing. No altered mental status. No focal motor deficits. Consultation: I spoke with Dr. Welsh is on-call for general surgery. He recommends n.p.o. after midnight and recommends a hospitalist admission as the patient is a diabetic and quite hyperglycemic at this time. Consultation: I spoke with Dr. Roberts who is on-call for the hospitalist service. He agrees to admission. Assessment and plan: Cellulitis of the right chest wall Hyperglycemia ?Some concern for sepsis although her vitals look normal. Unclear if this is an infection or cancer but seems rather abrupt for cancer. IV Zyvox and meropenem are being given. She failed Bactrim as an outpatient. 2 L normal saline bolus. Sepsis protocol was followed. Blood cultures ordered. Lactate ordered. Surgical consult. 10 units IV insulin given. -I discussed the patient with the hospitalist on-call who is admitting the patient. - Discussed findings and plan with patient. Answered any questions. - All laboratory values were reviewed and interpreted personally by myself, the ER physician - All imaging was reviewed and interpreted personally by myself, the ER physician. - Evaluation and treatment of this problem were appropriate in the emergency setting Lab Data 04/03/24 18:50 04/03/24 18:[address] 04/03/24 18:03 IMPRESSION: 1. Right medial chest/breast 5.8 cm localized area of edema without focal fluid collection may reflect an area of cellulitis, other etiologies including neoplasm are not excluded, further evaluation with dedicated breast imaging advised. 2. Left adrenal 4.2 cm fat density benign myelolipoma. 3. Mild coronary artery atherosclerotic disease suspected. 4. Right upper lobe 2.7 mm pulmonary nodule series 3 image 37, not seen with certainty on prior exam. Left lower lobe superior segment 5.4 mm nodule abutting the undersurface of the major fissure similar to prior exam series 3, image 35. For patients at low risk (minimal or absent history of smoking and of other known risk factors), no routine follow-up is indicated. For patients at high risk (history of smoking or of other known risk factors), consider optional CT Chest at 12 months. (Reference: Toni) REFERENCES: Toni Galvez et al. Guidelines for Management of Incidental Pulmonary Nodules Detected on CT Images: From the Fleischner Society 2017. Radiology. 2017;284(1):228-243. Laboratory Results WBC 18.41 10^3/uL (3.29-11.43) H 04/03/24 18:50 RBC 3.98 10^6/uL (3.85-5.65) 04/03/24 18:50 Hgb 11.80 g/dL (11.27-16.99) 04/03/24 18:50 Hct 34.4 % (36-47) L 04/03/24 18:50 MCV 86.4 fl (85-98) 04/03/24 18:50 MCH 29.6 pg (27-33) 04/03/24 18:50 MCHC 34.3 g/dL (30-55) 04/03/24 18:50 RDW 11.7 % (12.1-15.1) L 04/03/24 18:50 Plt Count 421 10^3/cmm (157-399) H 04/03/24 18:50 MPV 9.9 fL (7.4-10.4) 04/03/24 18:50 Neut % (Auto) 63.0 % 04/03/24 18:50 Lymph % (Auto) 22.2 % 04/03/24 18:50 Carver % (Auto) 7.9 % 04/03/24 18:50 Eos % (Auto) 2.5 % 04/03/24 18:50 Baso % (Auto) 0.7 % 04/03/24 18:50 Neut # (Auto) 11.60 10^3/uL (1.8-7.7) H 04/03/24 18:50 Lymph # (Auto) 4.1 10^3/uL (0.8-4.8) 04/03/24 18:50 Carver # (Auto) 1.5 10^3/uL (0.2-0.9) H 04/03/24 18:50 Eos # (Auto) 0.5 10^3/uL (0.0-0.8) 04/03/24 18:50 Baso # (Auto) 0.1 10^3/uL (0.0-0.1) 04/03/24 18:50 Nucleated RBC % (auto) 0 % 04/03/24 18:50 Nucleated RBCs # 0.0 /100WBC 04/03/24 18:50 ESR 55 mm/hr (0-15) H 04/03/24 18:50 Sodium 133 mmol/L (136-145) L 04/03/24 18:50 Potassium 4.4 mmol/L (3.5-5.1) 04/03/24 18:50 Chloride 94 mmol/L (98-107) L 04/03/24 18:50 Carbon Dioxide 25 mmol/L (22-29) 04/03/24 18:50 Anion Gap 18.4 (5-19) 04/03/24 18:50 BUN 13 mg/dL (8-23) 04/03/24 18:50 Creatinine 0.9 mg/dL (0.5-0.9) 04/03/24 18:50 GFR Calculation 63.7 mL/min (90-130) L 04/03/24 18:50 Glucose 456 mg/dL (65-115) H 04/03/24 18:50 Calculated Osmolality 296 mOsm/kg (285-295) H 04/03/24 18:50 Lactic Acid 1.6 mmol/L (0.5-2.2) 04/03/24 18:50 Calcium 9.6 mg/dL (8.5-10.5) 04/03/24 18:50 Total Bilirubin 0.3 mg/dL (0.15-1.2) 04/03/24 18:50 AST 12 U/L (0-32) 04/03/24 18:50 ALT 8 U/L (0-33) 04/03/24 18:50 Alkaline Phosphatase 154 U/L (35-105) H 04/03/24 18:50 C-Reactive Protein 104.2 mg/L (0.0-4.9) H 04/03/24 18:50 Total Protein 7.7 g/dL (6.6-8.7) 04/03/24 18:50 Albumin 3.9 g/dL (3.5-5.2) 04/03/24 18:50 Globulin 3.8 g/dL (1.3-4.6) 04/03/24 18:50 Procalcitonin 0.09 ng/mL (0-0.5) 04/03/24 18:50 All radiology interpretation(s) finalized by discharge Discharge Plan Discharge Patient Disposition: Admitted As Inpatient Clinical Impression: Cellulitis of chest wall, Hyperglycemia, Dehydration Condition: Stable Coding Level of Care Code ED School Librarian for Renay Whittaker
[2024-04-03 19:29] LABS: Alanine Aminotransferase 8 U/L (0-33); Albumin Level 3.9 g/dL (3.5-5.2); Alkaline Phosphatase 154 U/L (35-105); Anion Gap 18.4 (5-19); Aspartate Amino Transferase 12 U/L (0-32); Blood Urea Nitrogen 13 mg/dL (8-23); C Reactive Protein 104.2 mg/L (0.0-4.9); Calcium 9.6 mg/dL (8.5-10.5); Carbon Dioxide 25 mmol/L (22-29); Chloride 94 mmol/L (98-107); Creatinine Clr Calc Pharmacy 57.5467; Globulin 3.8 g/dL (1.3-4.6); Glomerular Filtration Rate 63.7 mL/min (90-130); Glucose 456 mg/dL (65-115); Osmolality Calculated 296 mOsm/kg (285-295); Potassium 4.4 mmol/L (3.5-5.1); Sodium 133 mmol/L (136-145); Total Bilirubin 0.3 mg/dL (0.15-1.2); Total Protein 7.7 g/dL (6.6-8.7)
[2024-04-03 19:30] LABS: Lactic Sepsis W/Reflex 1.6 mmol/L (0.5-2.2)
[2024-04-03 19:36] LABS: Procalcitonin 0.09 ng/mL (0-0.5)
[2024-04-03] MEDS: iohexol 350 mg/mL 500 mL Btl (per mL) IV (20:00)
[2024-04-03] MEDS: linezolid premix 600 MG/300 ML PREMIX 300 MG IV (21:34)
[2024-04-03] MEDS: meropenem 500 mg SDV IVP (21:35)
[2024-04-03] MEDS: ondansetron 2 mg/ML SDV 2 mL 4 MG IVP (21:45)
[2024-04-03] MEDS: HYDROmorphone 1 mg/mL INJ 1 mL IVP (21:45)
[2024-04-03 21:57] VITALS: BP 180/85; PULSE 65; RESP 14; O2SAT 92
[2024-04-03] MEDS: insulin regular-human 100 units/1 mL 10 UNIT IVP (23:28)
[2024-04-03] MEDS: sodium chloride 0.9% 1,000 ML 999 ML IV ×2 (23:46)
[2024-04-04] VITALS (19 sets, daily range): BP systolic 119–179; BP diastolic 65–89; PULSE 62–80; RESP 12–19; TEMP 36.2–37; O2SAT 94–99; BMI 27.9
--- NOTE | 2024-04-04 00:42 | P.HP_ITS ---
Providers/Chief Complaint 2 Admitting Physician: Sherman Roberts Primary Care Provider: Amadou Huynh MD Chief Complaint: lump on chest History of Present Illness Pleasant 63-year-old lady reports about 10-day history of swelling, redness, tenderness over the superior medial right breast, reports it started after she had gone swimming in a pool [place] a motel. She had completed a course of Bactrim but symptoms did not respond and with worsening in swelling, redness. There is a small ulceration present. No drainage. Review of Systems 2 Const: Denies: fever(s), chills, body aches or malaise ENMT: Denies: throat pain, oral sores or ear or mastoid pain Card: Denies: chest pain, edema, pre-syncope or dyspnea on exertion Resp: Denies: dyspnea, productive cough, change in phlegm color or hemoptysis GI: Denies: abdominal pain, nausea, vomiting, diarrhea, constipation, hematochezia or melena : Denies: flank pain, urinary frequency or hematuria Musc: Denies: back pain, joint swelling or joint redness Skin/Breast: Reports: erythema, skin tenderness, new lesions, breast tenderness, breast pain and breast swelling Neuro: Denies: headache(s) or confusion Medications/Allergies Home Medications Medication Instructions Recorded Confirmed Last Taken Type ibuprofen 200 mg tablet 800 mg PO PRN PRN Pain 02/26/20 03/30/24 Unknown History albuterol sulfate 90 mcg/actuation 2 puff inhalation Q6H PRN 03/25/21 03/30/24 Unknown History aerosol inhaler Shortness Of Breath fenofibrate nanocrystallized 145 145 mg PO DAILY 03/25/21 03/30/24 07/20/23 History mg tablet levothyroxine 50 mcg tablet 50 mcg PO DAILY 03/25/21 03/30/24 07/20/23 History (Synthroid) promethazine 25 mg tablet 25 mg PO BID PRN nausea and 04/24/21 03/30/24 Unknown History vomiting insulin aspart U-100 100 unit/mL See Rx Instructions .Route .COMPLEX 08/18/22 03/30/24 07/20/23 History subcutaneous solution (Novolog U-100 Insulin aspart) insulin glargine 100 unit/mL 40 unit SUBCUT BID 08/18/22 03/30/24 07/20/23 History subcutaneous solution (Lantus U-100 Insulin) losartan 100 mg tablet (Cozaar) 100 mg PO DAILY #30 tabs 07/20/23 03/30/24 Unknown Rx pantoprazole 40 mg tablet,delayed 40 mg PO DAILY 07/20/23 03/30/24 07/20/23 History release lorazepam 1 mg tablet 1 mg PO BID PRN anxiety #60 tabs 03/06/24 03/30/24 Unknown Rx sulfamethoxazole 800 1 tab PO BID 7 days #14 tabs 03/28/24 03/30/24 Unknown Rx mg-trimethoprim 160 mg tablet (Bactrim DS) brexpiprazole 1 mg tablet (Rexulti) 1 mg PO .8 am #30 tabs 03/30/24 03/30/24 Unknown Rx gabapentin 300 mg capsule 300 mg PO BID #60 caps 03/30/24 03/30/24 Unknown Rx memantine 5 mg tablet 5 mg PO BID #60 tabs 03/30/24 03/30/24 Unknown Rx Allergies Allergy/AdvReac Type Severity Reaction Status Date / Time codeine Allergy Unknown Verified 04/03/24 17:22 hydrocodone Allergy Unknown Verified 04/03/24 17:22 PFSH Acute 2 PFSH: Medical History (Updated 04/04/24 @ 00:57 by Sherman Roberts MD) Dementia with behavioral disturbance Grief Psychiatric care Other stimulant dependence, in remission Methamphetamine-last use 2019 Started at age 52 to 57 yr old Hypertension Type 2 diabetes mellitus Hepatitis C Recurrent pancreatitis Major depressive disorder, recurrent severe without psychotic features Surgical History History of appendectomy Family History Mother Clotting disorder Hypertension Father Diabetes Hypertension Hyperlipidemia Grandmother Hypertension Diabetes Other Major depressive disorder, recurrent severe without psychotic features Social History Smoking and tobacco/nicotine status: unknown if used tobacco/nicotine Quit status (tobacco/nicotine): has quit using Year quit tobacco: 2019 Second hand smoke exposure: No Alcohol intake: current Alcohol intake frequency: holidays/special occasions only Alcohol type: hard liquor Substance/Drug Use: former Former substance use details: 3 1/2 years clean from meth, cocaine, heroin Adopted: No Caregiver/support person: No Lives independently: Yes Household members: other Details: She takes care of her granddaughter part of the time Housing: Apartment Marital status: Number of children: 2 Number of grandchildren: 6 Highest education level completed: GED or Equivalent service: No Current occupational status: disabled Current occupational exposures/hazards: No Pets and animals: No Leisure activites: other Leisure activities details: watch TV Sexually active: No Do you think of yourself as: Straight/Heterosexual Current gender identity: Female Viviana/Caodaism: Congregation Special viviana needs: No Agree to transfusion: Yes Female Reproductive History: Para: 2 Date of menopause: 03/12/08 Vitals/I&O/Wt Last Vital Signs Temp 98.2 F 04/03/24 17:15 Pulse 79 04/04/24 00:39 Resp 14 04/04/24 00:38 BP 179/89 04/04/24 00:39 Pulse Ox 94 04/04/24 00:39 O2 Del Method Room Air 04/03/24 21:57 04/03/24 04/03/24 04/04/24 14:59 22:59 06:59 Intake Total 1300 / 1300 Balance 1300 / 1300 Weight last 48 hrs Weight 67.132 kg Physical Exam 2 Const: COMMON NORMALS: patient oriented x3 and alert GENERAL APPEARANCE: c ooperative ORIENTATION/CONSCIOUSNESS: Yes awake HENMT: COMMON NORMALS: oropharynx normal Neck/C-Spine: COMMON NORMALS: no JVD Resp: COMMON NORMALS: normal respiratory effort and clear to auscultation bilaterally AUSCULTATION: clear to auscultation bilaterally Cardio: COMMON NORMALS: no JVD, regular rhythm, S1 normal heart sound present, S2 normal heart sound present and No murmurs present (Cardio) RHYTHM: regular rhythm HEART SOUNDS: S1 normal heart sound present and S2 normal heart sound present GI: COMMON NORMALS: Normal to inspection, nondistended, normoactive bowel sounds present, Soft to palpation and non-tender PALPATION: Yes Soft to palpation Extremity: COMMON NORMALS: no joint enlargement and no pedal edema Neuro: COMMON NORMALS: patient oriented x3 and moves all extremities S ENSORIUM/ORIENTATION: Yes alert Skin: COMMON NORMALS: no rashes or lesions noted NARRATIVE SKIN EXAM: Right superior medial breast with masslike area of swelling, induration, small superficial ulceration without drainage. Tender to touch. Surrounding erythema. GENERAL SKIN EXAM: no rashes or lesions noted Data 04/03/24 18:50 04/03/24 18:50 Micro: Microbiology 04/03/24 18:57 Blood Culture - Preliminary Blood SPECIMEN COLLECTED 04/03/24 18:50 Blood Culture - Preliminary Blood SPECIMEN COLLECTED A&P Assessment and plan (1) Cellulitis of chest wall: Reviewed vitals, CBC, CMP, CT chest, ER note, discussed with ER provider. He is noted to have leukocytosis 18.41. ESR elevated 55. Glucose elevated 456. CRP elevated 104.2. Alk phos elevated 154. Has received a course of Bactrim but without response and suspected cellulitis, soft tissue infection of the right superior medial breast with local swelling, surrounding cellulitis, small ulceration, without drainage. CT of the chest with localized swelling of 5.8 cm, without focal fluid collection. Discussed with her possibility of infection but also possibility of other etiology including inflammatory breast cancer. Surgery was consulted in ER, will be seeing patient as well, admission requested to hospitalist due to medical problems including hyperglycemia, hypertension. Consider further dedicated imaging of the breast, consider biopsy. NPO. For now we will empirically continue with antibiotics, request wound culture. With significant leukocytosis 18.4, risk of progression of sepsis. Monitor for signs of formation of abscess. Wound culture, MRSA PCR. Continue linezolid with meropenem, monitor for risk of agranulocytosis, seizure. (2) Hyperglycemia: With history of diabetes, start sliding scale insulin, continue long-acting insulin with Lantus. POC glucose checks. (3) Hypertension: Losartan. Cardiac diet. Monitor blood pressures. Plan DM2: As above Hepatitis C Recurrent Pancreatitis History of substance use in remission MDD Hypothyroidism: Continue levothyroxine Requested home medications to be confirmed, please review and resume once available. Attestations 2 Medical Necessity Statement*: Place in observation for additional assessment management of nonresolving soft tissue/skin infection of the right breast despite outpatient antibiotic treatment, assessment for other etiology. and High MDM includes amount and/or complexity of data reviewed/ordered [ resulted lab(s)/test(s), ordered lab(s)/test(s) and other healthcare professional discussion] and described risk of complication, morbidity or mortality of management as documented Diagnoses Cellulitis of chest wall L03.313 Hyperglycemia R73.9 Hypertension I10
[2024-04-04 01:39] LABS: Glucose Point of Care 230 mg/dL (70-110)
[2024-04-04] MEDS: insulin lispro 100 unit/1 mL SUBCUT ×3 (02:16→18:24)
[2024-04-04] MEDS: enoxaparin 40 mg/0.4 mL Syringe SUBCUT (02:17)
[2024-04-04] MEDS: HYDROmorphone 1 mg/mL INJ 1 mL IVP ×2 (02:17→20:40)
[2024-04-04 02:42] LABS: MRSA PCR OZH (swab) NOT DETECTED (Not Detecte)
[2024-04-04] MEDS: ondansetron 2 mg/ML SDV 2 mL 4 MG IVP ×2 (03:54→20:40)
[2024-04-04] MEDS: levothyroxine 50 mcg Tablet PO (06:28)
[2024-04-04] MEDS: meropenem 500 mg SDV IVP (06:28)
[2024-04-04 06:32] LABS: Glucose Point of Care 170 mg/dL (70-110)
[2024-04-04] MEDS: ibuprofen 800 mg tablet PO (08:55)
--- NOTE | 2024-04-04 09:45 | PC.CHAP ---
Pastoral Care Encounter/Spiritual Assessment Type of Contact [] Declined bartender server visit [] Patient/Family/Request visit [] Outpatient visit [] Follow-up visit [] Physician referral [] Code/Alert [] Routine visit [] Staff referral [] Actively dying [] Patient sleeping [] Family support [] [] Out of room [] Palliative care [] [x] Receiving care in room [] Pre-surgical visit [] Trauma [] Long length of stay [] ICU visit [] Other: Relational/Emotional Strength [] Patient feels connected with others/family/visitors/staff [] Distress [] Loneliness/isolation [] Abandonment Spirituality of Patient [] Person of Viviana [] Attends Sabianism of their Viviana [] Believes in Prayer [] Reads Bible or Sabianist materials [] There are Spiritual issues to be addressed Material Damage Adjuster Interventions [] Prayer [] Active listening [] Non-anxious presence [] Spiritual/emotional support [] Crisis/trauma care [] Spiritual counseling [] Bereavement support [] Provided bereavement packet [] Provided Bible/devotional materials [] Provided toy/stuffed animal, coloring book to patient or family member [] Provided Communion [] Anointing/[place] [] Salvation [] Completed spiritual assessment [] Other: Impact on Illness or Injury [] Angry [] Fearful [] Anxious [] Often cries [] Exhaustion [] Unable to work [] Unable to attend jehovah's witness [] Unable to walk/stand [] Unable to read [] Unable to drive [] Unable to eat/drink [] Unable to sleep [] Unable to be with family [] Patient intubated [] Other: Summary Time spent with patient
[2024-04-04] MEDS: LORazepam 2 mg/mL INJ 1 mL 1 MG IVP (11:28)
--- NOTE | 2024-04-04 11:44 | P.CONIM_ITS ---
Providers/Reason For Consult 2 Consulting Physician/Specialty*: Dr. Sonu Welsh, DO/General Surgery Reason for Consult*: Right breast abscess Attending Physician: Alvaro Woods MD Primary Care Provider: Amadou Huynh MD History of Present Illness History of Present Illness Heidi Quintanilla is a 63 year old female who presented to the emergency room with a right breast abscess. She reports that she has had abscesses in her axilla before but never went on her breast. This first came up about 2 weeks ago. She has been on Bactrim for a few days but the infection just kept getting worse. She has sharp constant pain at the site. Palpation makes pain worse. Nothing makes pain better. The pain does not radiate. She denies any fever or chills Review of Systems 2 General: Reports: 10 or more systems reviewed and unremarkable except in HPI and below Medications/Allergies Home Medications Medication Instructions Recorded Confirmed Last Taken Type ibuprofen 200 mg tablet 800 mg PO PRN PRN Pain 02/26/20 04/04/24 Unknown History albuterol sulfate 90 mcg/actuation 2 puff inhalation Q6H PRN 03/25/21 04/04/24 Unknown History aerosol inhaler Shortness Of Breath fenofibrate nanocrystallized 145 145 mg PO DAILY 03/25/21 04/04/24 07/20/23 History mg tablet levothyroxine 50 mcg tablet 50 mcg PO DAILY 03/25/21 04/04/24 07/20/23 History (Synthroid) insulin aspart U-100 100 unit/mL See Rx Instructions .Route .COMPLEX 08/18/22 04/04/24 07/20/23 History subcutaneous solution (Novolog U-100 Insulin aspart) insulin glargine 100 unit/mL 40 unit SUBCUT BID 08/18/22 04/04/24 07/20/23 History subcutaneous solution (Lantus U-100 Insulin) losartan 100 mg tablet (Cozaar) 100 mg PO DAILY #30 tabs 07/20/23 04/04/24 Unknown Rx pantoprazole 40 mg tablet,delayed 40 mg PO DAILY 07/20/23 04/04/24 07/20/23 History release lorazepam 1 mg tablet 1 mg PO BID PRN anxiety #60 tabs 03/06/24 04/04/24 Unknown Rx sulfamethoxazole 800 1 tab PO BID 7 days #14 tabs 03/28/24 04/04/24 Unknown Rx mg-trimethoprim 160 mg tablet (Bactrim DS) brexpiprazole 1 mg tablet (Rexulti) 1 mg PO .8 am #30 tabs 03/30/24 04/04/24 Unknown Rx gabapentin 300 mg capsule 300 mg PO BID #60 caps 03/30/24 04/04/24 Unknown Rx memantine 5 mg tablet 5 mg PO BID #60 tabs 03/30/24 04/04/24 Unknown Rx Allergies Allergy/AdvReac Type Severity Reaction Status Date / Time codeine Allergy Unknown Verified 04/03/24 17:22 hydrocodone Allergy Unknown Verified 04/03/24 17:22 Current Medications Generic Name Dose Route Start Last Admin Trade Name Freq PRN Reason Stop Dose Admin Enoxaparin Sodium 40 mg 04/04/24 01:00 04/04/24 02:17 Enoxaparin 40 Mg/0.4 Ml Syringe SUBCUT 40 mg Q24H PRUDENCE Administration Ibuprofen 800 mg 04/04/24 01:30 04/04/24 08:55 Ibuprofen 800 Mg Tablet PO 800 mg Q8H PRN Administration PAIN Insulin Glargine 20 unit 04/04/24 09:00 04/04/24 08:56 Insulin Glargine 100 Units/1 Ml SUBCUT Not Given BID PRUDENCE Insulin Human Lispro 0 unit 04/04/24 01:00 04/04/24 07:05 Insulin Lispro 100 Unit/1 Ml SUBCUT 2 unit Q6H PRUDENCE Administration Protocol Levothyroxine Sodium 50 mcg 04/04/24 06:00 04/04/24 06:28 Levothyroxine 50 Mcg Tablet PO 50 mcg QAM PRUDENCE Administration Ondansetron HCl 4 mg 04/04/24 00:58 04/04/24 03:54 Ondansetron 2 Mg/Ml Sdv 2 Ml IVP 4 mg Q8H PRN Administration vomiting, or N/V if npo PFSH Acute 2 PFSH: Medical History Dementia with behavioral disturbance Grief Psychiatric care Other stimulant dependence, in remission Methamphetamine-last use 2019 Started at age 52 to 57 yr old Hypertension Type 2 diabetes mellitus Hepatitis C Recurrent pancreatitis Major depressive disorder, recurrent severe without psychotic features Surgical History History of appendectomy Family History Mother Clotting disorder Hypertension Father Diabetes Hypertension Hyperlipidemia Grandmother Hypertension Diabetes Other Major depressive disorder, recurrent severe without psychotic features Social History Smoking and tobacco/nicotine status: unknown if used tobacco/nicotine Quit status (tobacco/nicotine): has quit using Year quit tobacco: 2019 Second hand smoke exposure: No Alcohol intake: current Alcohol intake frequency: holidays/special occasions only Alcohol type: hard liquor Substance/Drug Use: former Former substance use details: 3 1/2 years clean from meth, cocaine, heroin Adopted: No Caregiver/support person: No Lives independently: Yes Household members: other Details: She takes care of her granddaughter part of the time Housing: Apartment Marital status: Number of children: 2 Number of grandchildren: 6 Highest education level completed: GED or Equivalent service: No Current occupational status: disabled Current occupational exposures/hazards: No Pets and animals: No Leisure activites: other Leisure activities details: watch TV Sexually active: No Do you think of yourself as: Straight/Heterosexual Current gender identity: Female Viviana/Sikhism: Shinto Special viviana needs: No Agree to transfusion: Yes Female Reproductive History: Para: 2 Date of menopause: 03/12/08 Vitals/I&O/Wt Last Vital Signs Temp 97.9 F 04/04/24 07:53 Pulse 70 04/04/24 07:53 Resp 18 04/04/24 07:53 BP 139/73 04/04/24 07:53 Pulse Ox 98 04/04/24 07:53 O2 Del Method Room Air 04/04/24 07:53 04/03/24 04/04/24 04/04/24 22:59 06:59 14:59 Intake Total 2300 / 2300 Balance 2300 / 2300 Weight last 48 hrs Weight 168 lb 4.8 oz Weight 148 lb Weight 148 lb Physical Exam 2 Narrative: General : Patient is well developed , no acute distress, oriented x3 Head : Normal cephalic, a-traumatic. Ears : Pinnae and external canal are normal. Hearing is normal. Eyes : PERRLA, Sclera and injection are normal. No conjunctival discharge. Nose : Mucous membranes are without erythema. Throat : buccal mucosa is normal, gums are without significant recession or hypertrophy. Lungs : Equal chest rise bilaterally, no use of accessory muscles, trachea is midline. Cor : Rate and rhythm are normal. Skin: There is a right breast abscess with overlying erythema fluctuance and induration Abdomen : Soft, ND, NT, no g/r/m Extremities : No edema, no cyanosis or clubbing, dorsalis pedis pulses are present bilaterally, non-tender to palpation of calves. Upper extremities are normal bilaterally. Back : non-tender to palpation, no CVA tenderness. Neuro : CN II - XII intact, Upper and lower extremities have equal and full strength Data 04/03/24 18:50 04/03/24 18:50 Micro: Microbiology 04/04/24 01:23 Gram Stain - Final Chest 04/03/24 18:57 Blood Culture - Preliminary Blood SPECIMEN COLLECTED 04/03/24 18:50 Blood Culture - Preliminary Blood SPECIMEN COLLECTED A&P Assessment and plan (1) Abscess of right breast: Plan Incision and drainage of right breast abscess The risks and benefits of the procedure, including but not limited to, bleeding, scar, continued infection, numbness and pain, recurrence, were explained to the patient. She is understand the risks and wished to proceed Coding Level of Care Code 14464 Diagnoses Abscess of right breast N61.1
[2024-04-04] MEDS: linezolid premix 600 MG/300 ML PREMIX 300 MG IV ×2 (11:57→23:07)
[2024-04-04 12:11] LABS: Glucose Point of Care 248 mg/dL (70-110)
--- NOTE | 2024-04-04 12:41 | P.ANESASSM_ITS ---
Pre-Anesthetic Assessment Height/Weight: Height 1.55 m Weight 76.34 kg Temp Pulse Resp BP Pulse Ox O2 Del Method 97.2 F L 62 18 154/82 99 Room Air 04/04/24 11:49 04/04/24 11:49 04/04/24 11:49 04/04/24 11:49 04/04/24 11:49 04/04/24 11:49 Operation Date: 04/04/24 12:35 Proposed Procedures p Incision And Drainage-Right Breast(Right) - Sonu Welsh DO Familial anesthetic complications: PONV Was Beta Roderick taken within 24 hours: N/A Was Clonidine taken within 24 hours: N/A Last intake: > 8hrs Social No alcohol and No tobacco Exam alert, oriented x 3, clear to auscultation bilaterally and regular rate & rhythm Airway Mallampati: Class II Dentition: full CV/HEM Hypertension Metabolic Diabetes Mellitus Anesthetic Plan ASA status: 3 Anesthesia: General Risk of > 500 ml blood loss (7ml/kg in children): No Medications/Allergies Home Medications Medication Instructions Recorded Confirmed Last Taken Type ibuprofen 200 mg tablet 800 mg PO PRN PRN Pain 02/26/20 04/04/24 Unknown History albuterol sulfate 90 mcg/actuation 2 puff inhalation Q6H PRN 03/25/21 04/04/24 Unknown History aerosol inhaler Shortness Of Breath fenofibrate nanocrystallized 145 145 mg PO DAILY 03/25/21 04/04/24 07/20/23 History mg tablet levothyroxine 50 mcg tablet 50 mcg PO DAILY 03/25/21 04/04/24 07/20/23 History (Synthroid) insulin aspart U-100 100 unit/mL See Rx Instructions .Route .COMPLEX 08/18/22 04/04/24 07/20/23 History subcutaneous solution (Novolog U-100 Insulin aspart) insulin glargine 100 unit/mL 40 unit SUBCUT BID 08/18/22 04/04/24 07/20/23 History subcutaneous solution (Lantus U-100 Insulin) losartan 100 mg tablet (Cozaar) 100 mg PO DAILY #30 tabs 07/20/23 04/04/24 Unknown Rx pantoprazole 40 mg tablet,delayed 40 mg PO DAILY 07/20/23 04/04/24 07/20/23 History release lorazepam 1 mg tablet 1 mg PO BID PRN anxiety #60 tabs 03/06/24 04/04/24 Unknown Rx sulfamethoxazole 800 1 tab PO BID 7 days #14 tabs 03/28/24 04/04/24 Unknown Rx mg-trimethoprim 160 mg tablet (Bactrim DS) brexpiprazole 1 mg tablet (Rexulti) 1 mg PO .8 am #30 tabs 03/30/24 04/04/24 Unknown Rx gabapentin 300 mg capsule 300 mg PO BID #60 caps 03/30/24 04/04/24 Unknown Rx memantine 5 mg tablet 5 mg PO BID #60 tabs 03/30/24 04/04/24 Unknown Rx Allergies Allergy/AdvReac Type Severity Reaction Status Date / Time codeine Allergy Unknown Verified 04/03/24 17:22 hydrocodone Allergy Unknown Verified 04/03/24 17:22 Current Medications Generic Name Dose Route Start Last Admin Trade Name Freq PRN Reason Stop Dose Admin Enoxaparin Sodium 40 mg 04/04/24 01:00 04/04/24 02:17 Enoxaparin 40 Mg/0.4 Ml Syringe SUBCUT 40 mg Q24H PRUDENCE Administration Linezolid 600 mg in 300 mls @ 300 mls/hr 04/04/24 11:20 04/04/24 11:57 Zyvox Premix IV 300 mls/hr Q12H PRUDENCE Administration Protocol Ibuprofen 800 mg 04/04/24 01:30 04/04/24 08:55 Ibuprofen 800 Mg Tablet PO 800 mg Q8H PRN Administration PAIN Insulin Glargine 20 unit 04/04/24 09:00 04/04/24 08:56 Insulin Glargine 100 Units/1 Ml SUBCUT Not Given BID PRUDENCE Insulin Human Lispro 0 unit 04/04/24 01:00 04/04/24 07:05 Insulin Lispro 100 Unit/1 Ml SUBCUT 2 unit Q6H PRUDENCE Administration Protocol Levothyroxine Sodium 50 mcg 04/04/24 06:00 04/04/24 06:28 Levothyroxine 50 Mcg Tablet PO 50 mcg QAM PRUDENCE Administration Ondansetron HCl 4 mg 04/04/24 00:58 04/04/24 03:54 Ondansetron 2 Mg/Ml Sdv 2 Ml IVP 4 mg Q8H PRN Administration vomiting, or N/V if npo PFSH Anesthesia Medical History Dementia with behavioral disturbance Grief Psychiatric care Other stimulant dependence, in remission Methamphetamine-last use 2019 Started at age 52 to 57 yr old Hypertension Type 2 diabetes mellitus Hepatitis C Recurrent pancreatitis Major depressive disorder, recurrent severe without psychotic features Surgical History History of appendectomy Family History Mother Clotting disorder Hypertension Father Diabetes Hypertension Hyperlipidemia Grandmother Hypertension Diabetes Other Major depressive disorder, recurrent severe without psychotic features Social History Smoking and tobacco/nicotine status: unknown if used tobacco/nicotine Quit status (tobacco/nicotine): has quit using Year quit tobacco: 2019 Second hand smoke exposure: No Alcohol intake: current Alcohol intake frequency: holidays/special occasions only Alcohol type: hard liquor Substance/Drug Use: former Former substance use details: 3 1/2 years clean from meth, cocaine, heroin Adopted: No Caregiver/support person: No Lives independently: Yes Household members: other Details: She takes care of her granddaughter part of the time Housing: Apartment Marital status: Number of children: 2 Number of grandchildren: 6 Highest education level completed: GED or Equivalent service: No Current occupational status: disabled Current occupational exposures/hazards: No Pets and animals: No Leisure activites: other Leisure activities details: watch TV Sexually active: No Do you think of yourself as: Straight/Heterosexual Current gender identity: Female Viviana/Moravian: Mormonism Special viviana needs: No Agree to transfusion: Yes Female Reproductive History Para: 2 Date of menopause: 03/12/08 Data Anesthesia 04/03/24 18:50 04/03/24 18:50 Short CBC 04/03/24 Range/Units 18:50 WBC 18.41 H (3.29-11.43) 10^3/uL Hgb 11.80 (11.27-16.99) g/dL Hct 34.4 L (36-47) % MCV 86.4 (85-98) fl Plt Count 421 H (157-399) 10^3/cmm Neut % (Auto) 63.0 % Neut # (Auto) 11.60 H (1.8-7.7) 10^3/uL BMP 04/03/24 18:50 Sodium 133 L Potassium 4.4 Chloride 94 L Carbon Dioxide 25 BUN 13 Creatinine 0.9 Glucose 456 H Calcium 9.6 Liver Function 04/03/24 Range/Units 18:50 Total Bilirubin 0.3 (0.15-1.2) mg/dL AST 12 (0-32) U/L ALT 8 (0-33) U/L Alkaline Phosphatase 154 H (35-105) U/L Albumin 3.9 (3.5-5.2) g/dL Coags 04/03/24 18:50 ESR 55 H C-Reactive Protein 104.2 H Microbiology 04/04/24 01:23 Gram Stain - Final Chest 04/03/24 18:57 Blood Culture - Preliminary Blood SPECIMEN COLLECTED 04/03/24 18:50 Blood Culture - Preliminary Blood SPECIMEN COLLECTED Cardiac Studies: 2 Echocardiogram Ultrasound 10/18/19
[2024-04-04] MEDS: meropenem 1,000 mg SDV 1000 MG IVP ×2 (13:33→23:07)
[2024-04-04] MEDS: lidocaine-epi 1% 20 mL INJ INJECTION (13:45)
--- NOTE | 2024-04-04 13:49 | PM.OP ---
Operative Report Date of procedure: April 04, 2024 Pre-op diagnosis: Right breast abscess Post-op diagnosis: same Procedure done: Incision and drainage of right breast abscess Implants: Half-inch iodoform gauze Specimens removed/disposition: Cultures Surgeon: Sonu Welsh DO Anesthesia: General and Local Estimated blood loss (mL): 5 Complications: None apparent Brief History: This is a very pleasant 63-year-old female who presented to the hospital with a right breast abscess. Incision and drainage was indicated. The risks and benefits were explained and documented. Procedure: Patient was wheeled operative room and remained in the hospital bed in the supine position. General anesthesia with LMA was achieved by the department of anesthesia. The right breast was inspected prepped and draped in usual sterile fashion. Timeout was performed. All present were in agreement. 1% lidocaine was used to anesthetize the area over the most fluctuance. A 15 blade scalpel was used to make a 1.5 cm incision. Copious purulence was expelled from the abscess cavity. Cultures were taken and sent off. Hemostats were used to of the abscess cavity and break all loculations. Abscess cavity was then thoroughly irrigated with normal saline. Half-inch iodoform gauze was packed into the abscess cavity. Sterile bandage was applied. Patient tolerated procedure well.
--- NOTE | 2024-04-04 14:25 | ANE.PACU2 ---
Inpatient post-anesthesia follow up: Airway intact: Yes Vital signs: Temperature 97.9 F Pulse Rate 83 Respiratory Rate 18 Blood Pressure 153/74 Pulse Oximetry 96 Oxygen Delivery Me thod Room Air Oxygen Flow Rate 6 Fraction of Inspir ed Oxygen Hydration adequate: Yes Nausea and vomiting: No Pain level: 1 Mental status: Baseline
--- NOTE | 2024-04-04 16:13 | P.PN_ITS ---
Subjective 2 Subjective: Patient was seen this morning, she is anxious about her surgery, she tells me that in the past she had an abscess in her right axilla that required extensive surgery and she had severe MRSA infection from it, no fevers overnight, does report chills Vitals/I&O/Wt Last Vital Signs Temp 97.8 F 04/04/24 14:25 Pulse 73 04/04/24 14:25 Resp 18 04/04/24 14:25 BP 139/76 04/04/24 14:25 Pulse Ox 95 04/04/24 14:25 O2 Del Method Room Air 04/04/24 14:25 O2 Flow Rate 6 04/04/24 14:05 04/04/24 04/04/24 04/04/24 06:59 14:59 22:59 Intake Total 2300 / 2300 350 / 350 Output Total 5 / 5 Balance 2300 / 2300 345 / 345 Weight last 48 hrs Weight 76.34 kg Weight 67.132 kg Weight 67.132 kg Physical Exam 2 Const: COMMON NORMALS: no acute distress and patient oriented x3 Resp: COMMON NORMALS: normal respiratory effort, No retractions, No use of accessory muscles and clear to auscultation bilaterally AUSCULTATION: clear to auscultation bilaterally Cardio: COMMON NORMALS: regular rate, regular rhythm, S1 normal heart sound present and S2 normal heart sound present RATE: regular rate RHYTHM: r egular rhythm HEART SOUNDS: S1 normal heart sound present and S2 normal heart sound present GI: COMMON NORMALS: Normal to inspection, nondistended, normoactive bowel sounds present and non-tender Extremity: COMMON NORMALS: no pedal edema Neuro: COMMON NORMALS: patient oriented x3 Psych: COMMON NORMALS: mental status grossly normal Skin: NARRATIVE SKIN EXAM: Right breast, 5 x 5 cm area of erythema, swelling, fluctuance with surrounding erythema Data 04/03/24 18:50 04/03/24 18:50 Micro: Microbiology 04/04/24 01:23 Gram Stain - Final Chest 04/03/24 18:57 Blood Culture - Preliminary Blood SPECIMEN COLLECTED 04/03/24 18:50 Blood Culture - Preliminary Blood SPECIMEN COLLECTED A&P Assessment and plan (1) Cellulitis of chest wall: -Right chest wall/breast cellulitis with abscess WBC 18.4, ESR 55, CRP 104 -CT chest CT/CT chest w con* [id number] IMPRESSION: 1. Right medial chest/breast 5.8 cm localized area of edema without focal fluid collection may reflect an area of cellulitis, other etiologies including neoplasm are not excluded, further evaluation with dedicated breast imaging advised. -Plan -Currently n.p.o. -Plan on incision and drainage -Continue IV antibiotics -Continue meropenem -Continue Zyvox -Monitor blood sugars closely -Will need to follow-up with primary care provider as outpatient for bilateral breast mammograms and mammography to rule out underlying inflammatory breast cancer (2) Hyperglycemia: - On Lantus 20 units twice daily -On insulin sliding scale (3) Hypertension: Losartan. Cardiac diet. Monitor blood pressures. Plan DM2: As above Hepatitis C Recurrent Pancreatitis History of substance use in remission MDD Hypothyroidism: Continue levothyroxine Attestations 2 Medical Necessity Statement*: Patient requires hospitalization for right breast/chest cellulitis with abscess requiring IV antibiotics and surgical drainage Diagnoses Cellulitis of chest wall L03.313 Hyperglycemia R73.9 Hypertension I10
[2024-04-04] MEDS: oxyCODONE-APAP 5-325 mg Tablet 1 TAB PO (16:21)
[2024-04-04 16:45] LABS: Glucose Point of Care 335 mg/dL (70-110)
[2024-04-04] MEDS: insulin glargine 100 units/1 mL 20 UNIT SUBCUT (18:24)
[2024-04-04] MEDS: diphenhydrAMINE 25 mg Capsule PO (19:29)
[2024-04-04] MEDS: metoclopramide 5 mg/mL SDV 2 mL IVP (23:39)
[2024-04-05] VITALS (9 sets, daily range): BP systolic 146–162; BP diastolic 57–79; PULSE 66–83; RESP 17–18; TEMP 36.2–36.9; O2SAT 95–99
[2024-04-05 00:20] LABS: Glucose Point of Care 391 mg/dL (70-110)
[2024-04-05] MEDS: enoxaparin 40 mg/0.4 mL Syringe SUBCUT (00:28)
[2024-04-05] MEDS: insulin lispro 100 unit/1 mL SUBCUT ×4 (00:28→21:11)
[2024-04-05 04:23] LABS: Glucose Point of Care 262 mg/dL (70-110)
--- NOTE | 2024-04-05 04:23 | CTR_ITS ---
PROCEDURE INFORMATION: Exam: CT Head Without Contrast Exam date and time: 04/05/2024 4:40 AM Age: 63 years old Clinical indication: Stroke-like symptoms; Altered mental status/memory loss; Additional info: Poss CVA TECHNIQUE: Imaging protocol: Computed tomography of the head without contrast. Radiation optimization: All CT scans at this facility use at least one of these dose optimization techniques: automated exposure control; mA and/or kV adjustment per patient size (includes targeted exams where dose is matched to clinical indication); or iterative reconstruction. Other technique: STROKE PROTOCOL was implemented. COMPARISON: CT head wo con* [id number] 08/18/2022 8:22 PM RADIATION DOSE METRICS: Total DLP (mGy-cm): 1115.38 FINDINGS: Brain: Mildly scattered periventricular white matter hypodensities are identified. There is no evidence of acute parenchymal hemorrhage, extra-axial collection, or acute infarction. There is no mass effect, midline shift, or downward herniation. Cerebral ventricles: No ventriculomegaly. Paranasal sinuses: Visualized sinuses are unremarkable. No fluid levels. Mastoid air cells: Visualized mastoid air cells are well aerated. Bones: There is hyperostosis frontalis internus noted. Soft tissues: Unremarkable. CT/CT head thrombolytic [id number] IMPRESSION: 1. No evidence of acute intracranial process. 2. Mildly scattered white matter hypodensities. Differential considerations include chronic microvascular ischemic change, demyelinating disease, or gliosis from infectious/inflammatory source. ASSESSMENT: ASPECTS ([place] Stroke Program Early CT Score) is 10.
[2024-04-05 04:44] LABS: Basophils # 0.1 10^3/uL (0.0-0.1); Basophils % 0.5 %; Eosinophils % 0.2 %; Hematocrit 37.9 % (36-47); Lymphocytes # 4.2 10^3/uL (0.8-4.8); Lymphocytes % 18.1 %; Mean Corpuscular HGB Conc 33.8 g/dL (30-55); Mean Corpuscular Hemoglobin 29.4 pg (27-33); Mean Corpuscular Volume 87.1 fl (85-98); Mean Platelet Volume 9.6 fL (7.4-10.4); Monocytes # 1.4 10^3/uL (0.2-0.9); Monocytes % 5.9 %; Neutrophils # 16.79 10^3/uL (1.8-7.7); Neutrophils % 71.9 %; Nucleated Red Blood Cells % 0 %; Platelet Count 576 10^3/cmm (157-399); Red Blood Count 4.35 10^6/uL (3.85-5.65); Red Cell Distribution Width 11.6 % (12.1-15.1); White Blood Count 23.35 10^3/uL (3.29-11.43)
--- NOTE | 2024-04-05 04:50 | PC.NURSE ---
Stroke Alert: JILLIAN reported with 0400 vitals that the pt wasn't acting right. Planer Hand and pt care nurse in to see the pt, she was A&OX4 at the beginning of the shift now with some confusion. NIHSS is a 5 at time of assessment, physician notified and code stroke called. Pt taken to CT.
[2024-04-05 04:59] LABS: Alanine Aminotransferase 9 U/L (0-33); Albumin Level 3.7 g/dL (3.5-5.2); Alkaline Phosphatase 127 U/L (35-105); Anion Gap 18.1 (5-19); Aspartate Amino Transferase 13 U/L (0-32); Blood Urea Nitrogen 8 mg/dL (8-23); Calcium 9.9 mg/dL (8.5-10.5); Carbon Dioxide 26 mmol/L (22-29); Chloride 95 mmol/L (98-107); Creatinine Clr Calc Pharmacy 78.7749; Globulin 3.8 g/dL (1.3-4.6); Glomerular Filtration Rate 85.1 mL/min (90-130); Glucose 255 mg/dL (65-115); Osmolality Calculated 287 mOsm/kg (285-295); Potassium 4.1 mmol/L (3.5-5.1); Sodium 135 mmol/L (136-145); Total Bilirubin 0.3 mg/dL (0.15-1.2); Total Protein 7.5 g/dL (6.6-8.7)
--- NOTE | 2024-04-05 05:14 | W.PM.EVENTAC ---
Event Note Event Note: At 418 received a phone call that upon waking patient up for her morning vitals she was found to be sluggish to respond with garbled speech, reported visual field deficit and numbness of lower extremity. Last known well around 1-1:30 AM. Vitals obtained and similar to prior with slightly better blood pressure. Blood glucose 262. Stat CT head requested. Last Dilaudid dose was at 2240. On my assessment she is awake and alert, pleasant, states that she is feeling tired. She is following directions readily. I do not detect any dysarthria, there is perhaps minimal if any aphasia. She has no difficulty with horizontal tracking. She does well on FNF other than some confusion between left and right. Visual saldivar are full to confrontation on my exam without visual extinction. There is no drift on upper or lower extremity motor exam. Sensory exam is symmetrical on upper extremities to light touch without sensory extinction, exam is somewhat equivocal on lower extremities with her stating she sometimes does feel light touch symmetrical to the right side on the left, but sometimes it does not feel right . No sensory extinction. She is going for CT of the head. Discussed with her neurologist, will reassess again after the scan. After the scan discussing with her she appears to be more alert, having an easier time cooperating with directions and less trouble with left and right compared to before. She does seem to have trouble recalling some things, she can tell me where she is, she can tell me the season, she cannot tell me the year or the month, she is having trouble initially remembering why she came to the hospital and procedure she underwent yesterday. On reminding her she states yes I do remember now . She does tell me that there has been concern regarding having a memory problem for which she states was started on a medication the name of which she cannot recall. I otherwise do not detect dysarthria or at current time significant aphasia barring the memory issues. On remainder of the NIHSS exam, no trouble with horizontal tracking, I again do not detect any visual field deficit, there is no visual extinction. Motor exam without drift. Sensory exam symmetrical upper and symmetrical lower extremities without extinction. Discussed with our neurologist, difficult to say whether TIA versus transient confusion upon waking up, medical condition, possibly pain medication from last night combined with concern for mild cognitive impairment versus early dementia. Symptoms did appear to resolve. At current time requesting additional neurochecks to be continued every 1 hour for 4 hours. As per discussion started aspirin for now 162 mg and obtain carotid duplex. She also knows to let us know in case of any change in her condition.
[2024-04-05 06:21] LABS: Glucose Point of Care 247 mg/dL (70-110)
[2024-04-05] MEDS: levothyroxine 50 mcg Tablet PO (06:27)
[2024-04-05] MEDS: aspirin 81 mg EC Tablet 162 MG PO (06:27)
[2024-04-05] MEDS: meropenem 1,000 mg SDV 1000 MG IVP ×3 (06:27→23:32)
--- NOTE | 2024-04-05 08:00 | USCV_ITS ---
Heidi Quintanilla Age: 63 Gender: F : 1960 Exam Date: 04/05/2024 10:27 Ordering Phys: Sherman Roberts MD Technologist: [place] [facility] [place]: tia Risk Factors: Previous Vascular Surgery: Right Brachial BP: / Left Brachial BP: / Right Left Velocity (cm/s) Spectral Plaque Velocity (cm/s) Spectral Plaque Syst/Diast Broadening Syst/Diast Broadening 100.00/22.50 Prox CCA 100.00/ 20.70 93.30/ 23.20 Mid CCA 110.40/ 22.70 86.50/ 17.50 Distal CCA 97.40 / 20.10 108.40/31.10 Prox ICA 91.40 / 19.00 93.50/ 28.60 Mid ICA 112.70/ 27.50 104.20/38.00 Distal ICA 97.00 / 31.50 93.60 ECA 132.00 1.30 ICA/CCA 1.20 Antegrade Vertebral Antegrade 58.90/ 20.60 cm/s 58.70/ 16.60 cm/s Bi Subclavian Bi 134.8 149.8 0 0 CONCLUSIONS Right ICA stenosis <50%. Mild atheromatous plaque right carotid bulb/ICA. Left ICA stenosis <50%. Moderate atheromatous plaque left carotid bulb/ICA. Normal antegrade Doppler flow noted in the right vertebral artery. Normal antegrade Doppler flow noted in the left vertebral artery. Checo Diaz MD (Electronically Signed) Final Date: 05 April 2024 14:56 S
[2024-04-05] MEDS: ibuprofen 800 mg tablet PO ×2 (09:22→16:53)
[2024-04-05] MEDS: LORazepam 2 mg/mL INJ 1 mL 0.5 MG IVP (09:22)
[2024-04-05] MEDS: insulin glargine 100 units/1 mL 20 UNIT SUBCUT ×2 (09:22→18:05)
[2024-04-05] MEDS: HYDROmorphone 1 mg/mL INJ 1 mL IVP ×3 (09:55→21:13)
[2024-04-05] MEDS: metoclopramide 5 mg/mL SDV 2 mL IVP ×3 (09:56→23:31)
[2024-04-05] MEDS: linezolid premix 600 MG/300 ML PREMIX 300 MG IV ×2 (10:49→23:33)
[2024-04-05 12:04] LABS: Glucose Point of Care 315 mg/dL (70-110)
--- NOTE | 2024-04-05 13:45 | P.PN_ITS ---
Subjective 2 Subjective: Patient seen and examined. She reports that the pain in her right breast is much improved Vitals/I&O/Wt Last Vital Signs Temp 98.2 F 04/06/24 07:58 Pulse 89 04/06/24 07:58 Resp 16 04/06/24 07:58 BP 124/74 04/06/24 07:58 Pulse Ox 94 04/06/24 07:58 O2 Del Method Room Air 04/06/24 07:58 O2 Flow Rate 6 04/04/24 14:05 04/05/24 04/06/24 04/06/24 22:59 06:59 14:59 Intake Total 300 / 1140 300 / 1440 Balance 300 / 1140 300 / 1440 Weight last 48 hrs Weight 170 lb Weight 167 lb 12.8 oz Physical Exam 2 Narrative: General: No acute distress, awake alert and oriented x 3 Skin: Still erythema of the right breast with some slightly necrotic overlying tissue. No significant exudate Data 04/06/24 04:35 04/06/24 04:35 Micro: Microbiology 04/04/24 13:45 Gram Stain - Final Breast - Abscess Anaerobic Culture - Preliminary Abscess Culture - Final Staphylococcus aureus 04/04/24 01:23 Gram Stain - Final Chest Wound Culture - Final Staphylococcus aureus A&P Assessment and plan (1) Abscess of right breast: Plan Antibiotics per primary Packing and dressing were changed today Daily dressing changes with half-inch plain packing covered by 4 x 4 gauze Surgically stable for discharge Attestations 2 Medical Necessity Statement*: Per primary Coding Level of Care Code 24151 Diagnoses Abscess of right breast N61.1
--- NOTE | 2024-04-05 14:51 | P.PN_ITS ---
Subjective 2 Subjective: Patient was seen this morning, she continues to have pain at surgical site, complains of erythema at along her right breast, no fevers, no chills, she is quite anxious she tells me, she continues to have severe pain, events overnight noted, she denies any focal weakness, no slurring of her words, no facial droop, moving bilateral upper and lower extremities, she thinks it might have been the pain medication overnight, but continues to have severe pain, is in need of pain medication, she is getting up and using the bathroom by herself, no lightheadedness, no dizziness, no nausea, no vomiting, no headache, blurry vision, head CT overnight no acute findings, currently is on aspirin, Vitals/I&O/Wt Last Vital Signs Temp 97.1 F L 04/05/24 12:00 Pulse 72 04/05/24 12:00 Resp 18 04/05/24 12:00 BP 158/77 04/05/24 12:00 Pulse Ox 99 04/05/24 12:00 O2 Del Method Room Air 04/05/24 12:00 O2 Flow Rate 6 04/04/24 14:05 04/04/24 04/05/24 04/05/24 22:59 06:59 14:59 Intake Total 480 / 830 300 / 1130 840 / 840 Balance 480 / 825 300 / 1125 840 / 840 Weight last 48 hrs Weight 76.113 kg Weight 76.34 kg Weight 67.132 kg Weight 67.132 kg Physical Exam 2 Const: COMMON NORMALS: no acute distress and patient oriented x3 Resp: COMMON NORMALS: normal respiratory effort, No retractions, No use of accessory muscles and clear to auscultation bilaterally AUSCULTATION: clear to auscultation bilaterally Cardio: COMMON NORMALS: regular rate, regular rhythm, S1 normal heart sound present and S2 normal heart sound present RATE: regular rate RHYTHM: r egular rhythm HEART SOUNDS: S1 normal heart sound present and S2 normal heart sound present GI: COMMON NORMALS: Normal to inspection, nondistended, normoactive bowel sounds present and non-tender Extremity: COMMON NORMALS: no pedal edema Neuro: COMMON NORMALS: patient oriented x3, CN's II-XII intact bilaterally, moves all extremities and no focal motor deficits Psych: COMMON NORMALS: mental status grossly normal Skin: NARRATIVE SKIN EXAM: Surgical site, with pressure bandage on top, does have erythema, swelling, tenderness of right breast Data 04/05/24 04:30 04/05/24 04:30 Micro: Microbiology 04/04/24 01:23 Gram Stain - Final Chest Wound Culture - Preliminary Coag positive Staphylococcus 04/04/24 13:45 Gram Stain - Final Breast - Abscess Anaerobic Culture - Preliminary Abscess Culture - Preliminary Coag positive Staphylococcus 04/03/24 18:50 Blood Culture - Preliminary Blood NEGATIVE TO DATE 04/03/24 18:57 Blood Culture - Preliminary Blood NEGATIVE TO DATE A&P Assessment and plan (1) Cellulitis of chest wall: -Right chest wall/breast cellulitis with abscess WBC 18.4, ESR 55, CRP 104 -CT chest CT/CT chest w con* [id number] IMPRESSION: 1. Right medial chest/breast 5.8 cm localized area of edema without focal fluid collection may reflect an area of cellulitis, other etiologies including neoplasm are not excluded, further evaluation with dedicated breast imaging advised. ? Status post incision and drainage -Plan -Currently diabetic diet -Continues to have right breast tenderness, swelling, erythema -Continue IV antibiotics -Continue meropenem -Continue Zyvox -Monitor blood sugars closely -Will need to follow-up with primary care provider as outpatient for bilateral breast mammograms and mammography to rule out underlying inflammatory breast cancer ? Continues to have intractable pain, around surgical site, add Dilaudid for pain control (2) Hyperglycemia: - On Lantus 20 units twice daily -On insulin sliding scale (3) Hypertension: Losartan. Cardiac diet. Monitor blood pressures. Plan Altered mental status episode overnight -Currently no focal neurologic deficits, no slurring of words, word finding difficulty, up and ambulating by herself, and a stroke scale 0 -CT head overnight no acute findings -Possibly secondary to narcotics, or withdrawal from medications as she has not received her lorazepam, her gabapentin, her memantine, results Rexulti -Resume her memantine, her gabapentin, -Continue neurochecks -NIH stroke scale DM2: As above Hepatitis C Recurrent Pancreatitis History of substance use in remission MDD Hypothyroidism: Continue levothyroxine Attestations 2 Medical Necessity Statement*: Patient requires hospitalization for cellulitis, right chest wall, right breast, with underlying abscess status post incision and drainage, with persistent intractable pain, persistent cellulitis along right breast requiring IV antibiotics Diagnoses Cellulitis of chest wall L03.313 Hyperglycemia R73.9 Hypertension I10
[2024-04-05] MEDS: ondansetron 2 mg/ML SDV 2 mL 4 MG IVP (15:10)
[2024-04-05] MEDS: gabapentin 300 mg Capsule PO (16:53)
[2024-04-05] MEDS: memantine 5 mg tablet PO (16:54)
[2024-04-05] MEDS: LORazepam 1 mg Tablet PO (21:13)
[2024-04-05] MEDS: atorvastatin 40 mg Tablet PO (21:13)
[2024-04-06] MEDS: insulin lispro 100 unit/1 mL SUBCUT ×2 (01:36→06:58)
[2024-04-06] MEDS: enoxaparin 40 mg/0.4 mL Syringe SUBCUT (01:36)
[2024-04-06 04:00] VITALS: BP 134/54; PULSE 66; RESP 17; TEMP 36.7; O2SAT 95
[2024-04-06 05:01] LABS: Basophils # 0.1 10^3/uL (0.0-0.1); Basophils % 0.7 %; Eosinophils # 0.3 10^3/uL (0.0-0.8); Eosinophils % 2.5 %; Hematocrit 34.8 % (36-47); Lymphocytes # 5.4 10^3/uL (0.8-4.8); Lymphocytes % 39.3 %; Mean Corpuscular HGB Conc 34.2 g/dL (30-55); Mean Corpuscular Hemoglobin 29.8 pg (27-33); Mean Corpuscular Volume 87.2 fl (85-98); Mean Platelet Volume 9.6 fL (7.4-10.4); Neutrophils # 6.56 10^3/uL (1.8-7.7); Neutrophils % 47.8 %; Nucleated Red Blood Cells % 0 %; Platelet Count 402 10^3/cmm (157-399); Red Blood Count 3.99 10^6/uL (3.85-5.65); Red Cell Distribution Width 11.8 % (12.1-15.1); White Blood Count 13.72 10^3/uL (3.29-11.43)
[2024-04-06 05:31] LABS: Alanine Aminotransferase 8 U/L (0-33); Albumin Level 3.4 g/dL (3.5-5.2); Alkaline Phosphatase 103 U/L (35-105); Anion Gap 15.4 (5-19); Aspartate Amino Transferase 13 U/L (0-32); Blood Urea Nitrogen 7 mg/dL (8-23); Calcium 9.5 mg/dL (8.5-10.5); Carbon Dioxide 28 mmol/L (22-29); Chloride 101 mmol/L (98-107); Creatinine Clr Calc Pharmacy 111.0295; Globulin 3.2 g/dL (1.3-4.6); Glomerular Filtration Rate 125.4 mL/min (90-130); Glucose 161 mg/dL (65-115); Osmolality Calculated 293 mOsm/kg (285-295); Potassium 3.4 mmol/L (3.5-5.1); Sodium 141 mmol/L (136-145); Total Bilirubin 0.2 mg/dL (0.15-1.2); Total Protein 6.6 g/dL (6.6-8.7)
[2024-04-06] MEDS: meropenem 1,000 mg SDV 1000 MG IVP (06:58)
[2024-04-06] MEDS: levothyroxine 50 mcg Tablet PO (06:59)
[2024-04-06] MEDS: ibuprofen 800 mg tablet PO (06:59)
[2024-04-06 07:50] LABS: Glucose Point of Care 357 mg/dL (70-110)
[2024-04-06 07:50] LABS: Glucose Point of Care 281 mg/dL (70-110)
[2024-04-06 07:51] LABS: Glucose Point of Care 258 mg/dL (70-110)
[2024-04-06 07:51] LABS: Glucose Point of Care 151 mg/dL (70-110)
[2024-04-06 07:58] VITALS: BP 124/74; PULSE 89; RESP 16; TEMP 36.8; O2SAT 94
[2024-04-06] MEDS: gabapentin 300 mg Capsule PO (10:23)
[2024-04-06] MEDS: memantine 5 mg tablet PO (10:23)
[2024-04-06] MEDS: aspirin 81 mg EC Tablet 162 MG PO (10:23)
[2024-04-06] MEDS: potassium chloride ER 20 mEq Tablet PO (10:24)
[2024-04-06 12:00] VITALS: BP 169/68; PULSE 89; RESP 17; TEMP 36.4; O2SAT 94
--- NOTE | 2024-04-06 12:22 | P.DS_ITS ---
Discharge Providers Date of Admission: 04/03/24 22:10 Date of Discharge: April 06, 2024 Attending Provider at Admission: Sherman Roberts Attending Provider at Discharge: Alvaro Woods MD Primary Care Provider: Amadou Huynh MD Diagnoses at Discharge Discharge Diagnosis (1) Abscess of right breast: Status: Acute Reason for Visit Reason for Visit: lump on chest Hospital Course Hospital Course This is a 63-year-old female who presents to [facility] for a 10-day history of right chest right breast erythema, swelling, tenderness, with a failure of outpatient antibiotics Patient was admitted to [facility] for cellulitis, abscess of right chest wall, requiring IV antibiotics, general surgery was consulted, status post incision and drainage, required antibiotics after the procedure due to persistent erythema and cellulitis of right chest wall, right breast. Overall patient clinically improved, remaining afebrile, will be discharged on 7 more days of p.o. antibiotics, cultures growing Staph aureus. On discharge she does have packing in place for I&D of right chest wall/right breast abscess, family has been instructed on daily dressing and packing changes for the next 7 days, follow-up with primary care, follow-up with general surgery For patient's right breast erythema/abscess, patient was advised that she should follow-up with her primary care provider again in about 1 to 2 months for co nsideration of breast mammogram, and ultrasound Patient had an episode of altered mental status during her hospitalization, CT of the head was within normal limits, likely secondary to narcotics, anesthetic after surgery, withdrawal from not receiving her antipsychotic medications. No focal neurologic deficits, NIH stroke scale 0, ambulating without significant symptomatology Physical Exam Const: COMMON NORMALS: no acute distress and patient oriented x3 Chest: OTHER: Right chest, erythema, swelling, significantly improved Resp: COMMON NORMALS: normal respiratory effort, No retractions, No use of accessory muscles and clear to auscultation bilaterally AUSCULTATION: clear to auscultation bilaterally Cardio: COMMON NORMALS: regular rate, regular rhythm, S1 normal heart sound present and S2 normal heart sound present RATE: regular rate RHYTHM: regular rhythm HEART SOUNDS: S1 normal heart sound present and S2 normal heart sound present GI: COMMON NORMALS: Normal to inspection, nondistended, normoactive bowel sounds present and non-tender Extremity: COMMON NORMALS: no pedal edema Neuro: COMMON NORMALS: patient oriented x3 Psych: COMMON NORMALS: mental status grossly normal Discharge Data Studies Completed and Pending Completed Studies During Hospitalization Category Date Time Status CT chest w con* [id number] Stat Cat Scan 04/03/24 18:[address] head thrombolytic [id number] Stat Cat Scan 04/05/24 04:23 Completed CV carotid duplex BI* [id number] Routine Ultrasound 04/05/24 08:00 Completed Pending at discharge Category Date Time Status Abscess Culture and Gram Stain Routine Lab 04/04/24 13:45 Results Anaerobic Culture Routine Lab 04/04/24 13:45 Results Blood Culture Stat Lab 04/03/24 18:57 Results Complete Blood Count w/Auto AM LABS Lab 04/07/24 04:00 Ordered Comprehensive Metabolic Panel AM LABS Lab 04/07/24 04:00 Ordered Radiology Impressions Chest CT 04/03/24 18:03 IMPRESSION: 1. Right medial chest/breast 5.8 cm localized area of edema without focal fluid collection may reflect an area of cellulitis, other etiologies including neoplasm are not excluded, further evaluation with dedicated breast imaging advised. 2. Left adrenal 4.2 cm fat density benign myelolipoma. 3. Mild coronary artery atherosclerotic disease suspected. 4. Right upper lobe 2.7 mm pulmonary nodule series 3 image 37, not seen with certainty on prior exam. Left lower lobe superior segment 5.4 mm nodule abutting the undersurface of the major fissure similar to prior exam series 3, image 35. For patients at low risk (minimal or absent history of smoking and of other known risk factors), no routine follow-up is indicated. For patients at high risk (history of smoking or of other known risk factors), consider optional CT Chest at 12 months. (Reference: Toni) REFERENCES: Toni Galvez, et al. Guidelines for Management of Incidental Pulmonary Nodules Detected on CT Images: From the Fleischner Society 2017. Radiology. 2017;284(1):228-243. Head CT 04/05/24 04:23 IMPRESSION: 1. No evidence of acute intracranial process. 2. Mildly scattered white matter hypodensities. Differential considerations include chronic microvascular ischemic change, demyelinating disease, or gliosis from infectious/inflammatory source. ASSESSMENT: ASPECTS ([place] Stroke Program Early CT Score) is 10. Laboratory Results WBC 13.72 10^3/uL (3.29-11.43) H 04/06/24 04:35 RBC 3.99 10^6/uL (3.85-5.65) 04/06/24 04:35 Hgb 11.90 g/dL (11.27-16.99) 04/06/24 04:35 Hct 34.8 % (36-47) L 04/06/24 04:35 MCV 87.2 fl (85-98) 04/06/24 04:35 MCH 29.8 pg (27-33) 04/06/24 04:35 MCHC 34.2 g/dL (30-55) 04/06/24 04:35 RDW 11.8 % (12.1-15.1) L 04/06/24 04:35 Plt Count 402 10^3/cmm (157-399) H D 04/06/24 04:35 MPV 9.6 fL (7.4-10.4) 04/06/24 04:35 Neut % (Auto) 47.8 % 04/06/24 04:35 Lymph % (Auto) 39.3 % 04/06/24 04:35 Mora % (Auto) 7.0 % 04/06/24 04:35 Eos % (Auto) 2.5 % 04/06/24 04:35 Baso % (Auto) 0.7 % 04/06/24 04:35 Neut # (Auto) 6.56 10^3/uL (1.8-7.7) 04/06/24 04:35 Lymph # (Auto) 5.4 10^3/uL (0.8-4.8) H 04/06/24 04:35 Mora # (Auto) 1.0 10^3/uL (0.2-0.9) H 04/06/24 04:35 Eos # (Auto) 0.3 10^3/uL (0.0-0.8) 04/06/24 04:35 Baso # (Auto) 0.1 10^3/uL (0.0-0.1) 04/06/24 04:35 Nucleated RBC % (auto) 0 % 04/06/24 04:35 Nucleated RBCs # 0.0 /100WBC 04/06/24 04:35 ESR 55 mm/hr (0-15) H 04/03/24 18:50 Sodium 141 mmol/L (136-145) 04/06/24 04:35 Potassium 3.4 mmol/L (3.5-5.1) L 04/06/24 04:35 Chloride 101 mmol/L (98-107) 04/06/24 04:35 Carbon Dioxide 28 mmol/L (22-29) 04/06/24 04:35 Anion Gap 15.4 (5-19) 04/06/24 04:35 BUN 7 mg/dL (8-23) L 04/06/24 04:35 Creatinine 0.5 mg/dL (0.5-0.9) 04/06/24 04:35 GFR Calculation 125.4 mL/min (90-130) 04/06/24 04:35 Glucose 161 mg/dL (65-115) H 04/06/24 04:35 POC Glucose 151 mg/dL (70-110) H 04/06/24 06:16 Calculated Osmolality 293 mOsm/kg (285-295) 04/06/24 04:35 Lactic Acid 1.6 mmol/L (0.5-2.2) 04/03/24 18:50 Calcium 9.5 mg/dL (8.5-10.5) 04/06/24 04:35 Total Bilirubin 0.2 mg/dL (0.15-1.2) 04/06/24 04:35 AST 13 U/L (0-32) 04/06/24 04:35 ALT 8 U/L (0-33) 04/06/24 04:35 Alkaline Phosphatase 103 U/L (35-105) 04/06/24 04:35 C-Reactive Protein 104.2 mg/L (0.0-4.9) H 04/03/24 18:50 Total Protein 6.6 g/dL (6.6-8.7) 04/06/24 04:35 Albumin 3.4 g/dL (3.5-5.2) L 04/06/24 04:35 Globulin 3.2 g/dL (1.3-4.6) 04/06/24 04:35 Procalcitonin 0.09 ng/mL (0-0.5) 04/03/24 18:50 Nasal MRSA (PCR) Not detected (Not Detecte) 04/04/24 01:23 Vitals Last Vital Signs Temp 97.6 F 04/06/24 12:00 Pulse 89 04/06/24 12:00 Resp 17 04/06/24 12:00 BP 169/68 04/06/24 12:00 Pulse Ox 94 04/06/24 12:00 O2 Del Method Room Air 04/06/24 12:00 O2 Flow Rate 6 04/04/24 14:05 Discharge Plan Discharge Patient Disposition: Home Condition: Stable Prescriptions: New tramadol 50 mg tablet 50 mg PO Q8H PRN (Reason: pain) 7 Days Qty: 21 0RF amoxicillin-pot clavulanate 875-125 mg tablet 1 tab PO BID 7 Days Qty: 14 0RF doxycycline hyclate 100 mg tablet 100 mg PO BID 7 Days Qty: 14 0RF Continued levothyroxine [Synthroid] 50 mcg tablet 50 mcg PO DAILY fenofibrate nanocrystallized 145 mg tablet 145 mg PO DAILY albuterol sulfate 90 mcg/actuation HFA aerosol inhaler 2 puff inhalation Q6H PRN (Reason: Shortness Of Breath) gabapentin 300 mg capsule 300 mg PO BID Qty: 60 0RF Rx Instructions: Take one capsule twice per day memantine 5 mg tablet 5 mg PO BID Qty: 60 3RF Rx Instructions: Take one tablet twice per day Rexulti 1 mg tablet 1 mg PO .8 am Qty: 30 3RF Rx Instructions: Take one tablet at 8 am lorazepam 1 mg tablet 1 mg PO DAILY PRN (Reason: anxiety) Qty: 30 1RF Rx Instructions: May take one tablet once day as needed for anxiety pantoprazole 40 mg tablet,delayed release (DR/EC) 40 mg PO DAILY losartan [Cozaar] 100 mg tablet 100 mg PO DAILY Qty: 30 0RF Changed insulin glargine [Lantus U-100 Insulin] 100 unit/mL Solution 25 unit SUBCUT BID Qty: 10 0RF insulin aspart U-100 [Novolog U-100 Insulin aspart] 100 unit/mL Solution See Rx Instructions .ROUTE .COMPLEX Qty: 10 0RF Rx Instructions: Inject, subcu, 3 times daily, after meals, based on sliding scale provided Discontinued sulfamethoxazole-trimethoprim [Bactrim DS] 800-160 mg tablet 1 tab PO BID 7 Days Qty: 14 0RF ibuprofen 200 mg Tablet 800 mg PO PRN PRN (Reason: Pain) Discharge Orders: Discharge Order (Routine); Ordered 04/06/24 Ordered By: Alvaro Woods Referrals: Sonu Welsh DO [Physician] - 4-7 days (We have notified your physician's clinic of the need for a follow-up appointment to be scheduled. If you have not heard from them within the next 2 business days, please call them directly. ) Amadou Huynh MD [Primary Care Provider] - 1 week Discharge Diet: Cardiac Discharge Activity: Resume usual activity Patient Instructions: Doxycycline (By mouth), Amoxicillin/Clavulanate Potassium (By mouth), Tramadol (By mouth), Acute Wound Care (DC), Opioid Safety, Post Anesthesia Care Activity Restrictions/Additional Instructions: - Please take antibiotics as prescribed ? Please monitor blood sugars closely -Please inject Lantus 25 units twice daily -Please monitor your blood sugars closely -Monitor your blood sugars 3 times daily as after meals -Please record your blood sugars, and a blood sugar log -For your NovoLog -Please inject blood sugar after meals based on sliding scale provided -Do not inject insulin if you do not eat as hypoglycemia kills -This is a NovoLog sliding scale -Insulin sliding ?fingerstick? Insulin ?141-180?0 units/sq 181-220?2 units/sq ?221-260?4 units/sq ?261-300 6 units/sq ?301-350?8 units/sq ?351-400 10 units/sq ?401-450?12 units/sq >450? 14units/sq -If your blood sugar is greater than 500 go to the emergency room -If your blood sugar is less than 60 or at anytime you feel lightheaded or dizzy or diaphoretic or have chest palpitations check your blood sugar, and eat a hard candy or drink orange juice and go immediately to the emergency room -Remember hypoglycemia kills, so if his blood sugar is less than 60 we have to increase it by taking in a sugary meal such as a hard candy or orange juice and go to the emergency room -If you have any questions please call us where here to help -Please use tramadol sparingly for pain, do not drive or operate heavy machinery or drink while taking medication ? Please follow-up with primary care provider in 1 month for consideration of mammography and breast ultrasonography Discharge Attestations Time Spent in Discharge Care*: greater than 30 min Quality Metrics Clinical Quality Measures [ No reported AMI, CVA or VTE this stay] Coding Level of Care Code 47481 Total time (in minutes) for Discharge: 45 Diagnoses Abscess of right breast N61.1
== END 2024-04-06 12:57 | disposition home or self-care (01) | DRG 584 ==
LOC: ER 22:22 → MEDSURG 04-04 07:36
PROVIDERS: Surgery; Admitting Provider Internal Medicine; Emergency Provider Emergency Medicine; PCP Family Medicine; Visit Provider Family Medicine
PROC: 0H9T0ZZ Drainage of Right Breast, Open Approach (ICD-10-PCS; principal; 2024-04-04 12:25)
DX: N61.1 Abscess of the breast and nipple (principal); F33.9 Major depressive disorder, recurrent, unspecified; I10 Essential (primary) hypertension; E11.65 Type 2 diabetes mellitus with hyperglycemia; F03.90 Unspecified dementia, unspecified severity, without behavioral disturbance, psychotic disturbance, mood disturbance, and anxiety; Z79.4 Long term (current) use of insulin; Z79.899 Other long term (current) drug therapy; Z88.5 Allergy status to narcotic agent; Z87.891 Personal history of nicotine dependence; R47.89 Other speech disturbances; R41.82 Altered mental status, unspecified; E03.9 Hypothyroidism, unspecified; Z79.890 Hormone replacement therapy; Z86.19 Personal history of other infectious and parasitic diseases
CPT/HCPCS: 36415; 36416; 70450; 71260; 80053; 82962; 83605; 84145; 85025; 85651; 86140; 87040; 87070; 87075; 87077; 87186; 87205; 93880; 96365; 96372; 96375; 96376; 99285; G0378; J1100; J1170; J1650; J1815; J2020; J2060; J2185; J2250; J2405; J2704; J2765; J3010; J7030

== ENCOUNTER → 2024-04-20 14:29 | Outpatient (BNVA) | payer OTHER, MEDICAID, SELFPAY ==
[2023-09-03 15:25] VITALS: BP 174/101; BMI 34.3
== END ==
PROVIDERS: PCP Family Medicine; Visit Provider Family Medicine
DX: E11.9 Type 2 diabetes mellitus without complications (principal); E78.5 Hyperlipidemia, unspecified; E03.9 Hypothyroidism, unspecified
CPT/HCPCS: 80053; 80061; 83036; 83721; 84439; 84443; 85025

== ENCOUNTER → 2024-08-09 11:46 | Outpatient (BNVA) | payer MEDICAID, SELFPAY ==
[2023-09-03 15:25] VITALS: BP 174/101; BMI 34.3
== END ==
PROVIDERS: PCP Family Medicine; Visit Provider Family Medicine
DX: E11.9 Type 2 diabetes mellitus without complications (principal); E03.9 Hypothyroidism, unspecified; I10 Essential (primary) hypertension
CPT/HCPCS: 80053; 83036; 84439; 84443

== ENCOUNTER → 2025-02-23 15:59 | Outpatient (BNVA) | payer MEDICAID, SELFPAY ==
[2023-09-03 15:25] VITALS: BP 174/101; BMI 34.3
== END ==
PROVIDERS: PCP Family Medicine; Visit Provider Family Medicine
DX: E03.9 Hypothyroidism, unspecified (principal); E11.9 Type 2 diabetes mellitus without complications
CPT/HCPCS: 80053; 83036; 84439; 84443; 85025

== ENCOUNTER → 2025-03-19 15:13 | Outpatient (BNVA) | payer OTHER, SELFPAY ==
[2023-09-03 15:25] VITALS: BP 174/101; BMI 34.3
== END ==
PROVIDERS: PCP Family Medicine; Visit Provider Nurse Practitioner Psychiatric/Mental Health
DX: Z79.899 Other long term (current) drug therapy (principal); Z03.89 Encounter for observation for other suspected diseases and conditions ruled out
CPT/HCPCS: 80307; 81001

== ENCOUNTER 2025-05-15 09:41 | Emergency (ER) | payer MEDICAID, SELFPAY ==
[2023-09-03 15:25] VITALS: BP 174/101; BMI 34.3
[2025-05-15 09:41] VITALS: BP 124/65; PULSE 77; RESP 16; TEMP 36.5; O2SAT 98; BMI 23.8
--- NOTE | 2025-05-15 09:43 | CT_ITS ---
WS: [id number] CT HEAD TECHNIQUE: Noncontrast CT of the head obtained from the skullbase to the vertex. CLINICAL INFORMATION: fall COMPARISON: 2023 DLP: 1159.[address] scans at [facility] use at least one of these dose optimization techniques: automated exposure control; mA and/or kV adjustment per patient size (includes targeted exams where dose is matched to clinical indication); or iterative reconstruction. FINDINGS: No evidence of intracranial hemorrhage or mass effect. Ventricular system and basal cisterns are patent. Mild small vessel changes with mild parenchymal volume loss. No extra-axial fluid collections. No evidence of mass or mass effect. Vascular calcification Retention cyst LEFT maxillary sinus measuring 1.8 cm. Mastoid air cells are well aerated CT/CT head wo con* [id number] IMPRESSION: 1. No evidence of intracranial hemorrhage or mass effect. 2. No acute intracranial findings.
--- NOTE | 2025-05-15 09:43 | CT_ITS ---
WS: [id number] CT CERVICAL TRAUMA TECHNIQUE: Noncontrast CT of the cervical spine with coronal and sagittal reformatted images. CLINICAL INFORMATION: fall COMPARISON: None. DLP: 173.[address] scans at [facility] use at least one of these dose optimization techniques: automated exposure control; mA and/or kV adjustment per patient size (includes targeted exams where dose is matched to clinical indication); or iterative reconstruction. FINDINGS: Straightening of the normal cervical lordosis. Moderate spondylitic changes. Disc space narrowing worse at C3-C4 C4-C5. Normal craniocervical junction. Normal C1-C2 articulation. Dens is normal in appearance. Normal occipital condyles. No high-grade spinal canal narrowing. Normal C1 ring. No evidence of acute fracture or dislocation. Mild central canal stenosis in the upper cervical spine due to disc osteophyte complexes. Normal prevertebral soft tissues. Mastoids air cells are well aerated. CT/CT cervical spin wo con* [id number] IMPRESSION: No evidence of acute fracture or dislocation.
--- NOTE | 2025-05-15 09:53 | W.ED.FALL ---
HPI - Fall General: Chief Complaint: Fall Stated Complaint: Dizzy Source: patient and EMS Mode of arrival: EMS Limitations: no limitations History of Present Illness: 65-year-old female states she had tripped and fell in the kitchen just prior to arrival. States she had had a slight period of dizziness and then fell but denies passing out. She did hit her head and does have a laceration to her chin states she is a mild headache denies any pain elsewhere she denies any recent vomiting denies any fever denies any chest pain. Related Data Home Medications ?Medication ?Instructions ?Recorded ?Confirmed albuterol sulfate 90 mcg/actuation 2 puff inhalation Q6H PRN 03/25/21 05/07/25 aerosol inhaler Shortness Of Breath pantoprazole 40 mg tablet,delayed 40 mg PO DAILY 05/02/24 05/07/25 release Previous Rx's ?Medication ?Instructions ?Recorded insulin syringe-needle U-100 1 mL #100 ea 09/29/24 30 gauge x 1/2 blood sugar diagnostic (True #100 ea 10/27/24 Metrix Glucose Test Strip) propranolol 40 mg tablet 40 mg PO BID #180 tabs 12/25/24 amlodipine 10 mg tablet 10 mg PO .qhs #90 tabs 01/15/25 Pen Nineveh for insulin pens, #100 ea 02/09/25 insulin glargine 100 unit/mL (3 45 unit (0.45 mL) SUBCUT BID #30 mL 02/24/25 mL) subcutaneous pen (Lantus Solostar U-100 Insulin) levothyroxine 75 mcg tablet 75 mcg PO DAILY #90 tabs 03/15/25 memantine 10 mg tablet 10 mg PO BID #60 tabs 03/19/25 trazodone 50 mg tablet 100 mg (2 x 50 mg) PO BEDTIME #60 03/19/25 tabs fenofibrate nanocrystallized 145 See Rx Instructions .Route 04/09/25 mg tablet .COMPLEX #90 tabs hydrochlorothiazide 12.5 mg tablet See Rx Instructions .Route 04/09/25 .COMPLEX #90 tabs lorazepam 1 mg tablet 1 mg PO DAILY PRN anxiety #30 tabs 04/17/25 blood-glucose meter (True Metrix #1 ea 05/07/25 Glucose Meter) brexpiprazole 0.5 mg tablet 0.5 mg PO .3 pm #30 tabs 05/07/25 (Rexulti) escitalopram oxalate 10 mg tablet 10 mg PO .morning #30 tabs 05/07/25 (Lexapro) gabapentin 300 mg capsule 300 mg PO BID #60 caps 05/07/25 losartan 100 mg tablet (Cozaar) 100 mg PO DAILY #90 tabs 05/14/25 sitagliptin phosphate 100 mg tablet 100 mg PO DAILY #90 tabs 05/14/25 insulin lispro 100 unit/mL See Rx Instructions .Route 05/15/25 subcutaneous pen .COMPLEX #15 mL Allergies Allergy/AdvReac Type Severity Reaction Status Date / Time codeine Allergy ADR-Gastrointestinal Verified 05/15/25 09:48 Upset hydrocodone AdvReac ADR-Itching Verified 05/15/25 09:48 oxycodone AdvReac ADR-Itching Verified 05/15/25 09:48 [facility] ED PFSH: Medical History Other stimulant dependence, in remission Methamphetamine-last use 2019 Started at age 52 to 57 yr old Diabetic neuropathy Chronic pain Hypothyroidism Hyperlipidemia Dementia with behavioral disturbance Grief Psychiatric care Hypertension Type 2 diabetes mellitus Hepatitis C Recurrent pancreatitis Major depressive disorder, recurrent severe without psychotic features Surgical History History of appendectomy Family History Mother Clotting disorder Hypertension Father Diabetes Hypertension Hyperlipidemia Grandmother Hypertension Diabetes Other Major depressive disorder, recurrent severe without psychotic features Social History Smoking and tobacco/nicotine status: former use of tobacco/nicotine Quit status (tobacco/nicotine): has quit using Year quit tobacco: 2019 Second hand smoke exposure: No Alcohol intake: current Alcohol intake frequency: holidays/special occasions only Alcohol type: hard liquor Substance/Drug Use: former Former substance use details: 3 1/2 years clean from meth, cocaine, heroin Adopted: No Caregiver/support person: No Lives independently: Yes Household members: other Details: She takes care of her granddaughter part of the time Housing: Apartment Marital status: Number of children: 2 Number of grandchildren: 6 Highest education level completed: GED or Equivalent service: No Current occupational status: disabled Current occupational exposures/hazards: No Pets and animals: No Leisure activites: other Leisure activities details: watch TV Sexually active: No Do you think of yourself as: Straight/Heterosexual Current gender identity: Female Viviana/Episcopalian: Judaism Special viviana needs: No Agree to transfusion: Yes Female Reproductive History: Para: 2 Date of menopause: 03/12/08 Physical Exam Const: COMMON NORMALS: no acute distress, patient oriented x3 and healthy appearing HENMT: COMMON NORMALS: normocephalic HEAD & SCALP: normocephalic OTHER: Abrasion noted to forehead has a 2 cm laceration to the underside of her chin Eye: COMMON NORMALS: Equal, round and reactive pupils present and EOMs intact bilaterally PUPIL: Yes Equal, round and reactive pupils present Neck/C-Spine: COMMON NORMALS: full ROM and supple Chest: COMMONS NORMALS: normal inspection of the chest and normal palpation of entire chest wall Resp: COMMON NORMALS: normal respiratory effort, No retractions, No use of accessory muscles and clear to auscultation bilaterally AUSCULTATION: clear to auscultation bilaterally Cardio: COMMON NORMALS: regular rate, regular rhythm and No murmurs present (Cardio) RATE: regular rate RHYTHM: regular rhythm GI: COMMON NORMALS: Normal to inspection, nondistended, normoactive bowel sounds present, Soft to palpation, non-tender and no masses PALPATION: Yes Soft to palpation Extremity: COMMON NORMALS: normal to inspection and full ROM Neuro: COMMON NORMALS: patient oriented x3, moves all extremities and no focal motor deficits Psych: COMMON NORMALS: mental status grossly normal, Normal thought process present and cooperative THOUGHT PROCESS: Normal thought process present Skin: COMMON NORMALS: no rashes or lesions noted and no wounds GENERAL SKIN EXAM: no rashes or lesions noted Procedures Laceration Laceration 1: Site: other (chin) Size (cm): 2 Description: linear Depth: simple, single layer Pre-repair: wound explored and irrigated extensively Skin layer closed with: other (dermabond) Course Vital Signs: Vital signs: Vital Signs Temperature 97.7 F 05/15/25 09:41 Pulse Rate 77 05/15/25 09:41 Respiratory Rate 16 05/15/25 10:48 Blood Pressure 124/65 05/15/25 09:41 Pulse Oximetry 96 11/04/25 10:48 Oxygen Delivery Me thod Room Air 05/15/25 09:41 MDM - Fall Medical Decision Making Patient presents here after fall. Patient did have a closed head injury along with a chin laceration. Patient's been well-appearing here head CT C-spine CT are negative no signs of intracranial hemorrhage did repair the laceration with tissue adhesive. Patient's blood work here shows no acute abnormalities urinalysis showed no definite UTI. Patient's been ambulatory here I did go over her results with her and her daughter she is stable for discharge she has follow-up with her PCP in 3 to 4 days she is to return if worsening she understands agrees to plan. Medical Records I reviewed the patient's medical records. Lab Data I reviewed the patient's lab results. 05/15/25 09:30 05/15/25 09:30 Radiology Impressions Cervical Spine CT 05/15/25 09:43 IMPRESSION: No evidence of acute fracture or dislocation. Head CT 05/15/25 09:43 IMPRESSION: 1. No evidence of intracranial hemorrhage or mass effect. 2. No acute intracranial findings. Laboratory Results WBC 14.55 10^3/uL (3.29-11.43) H 05/15/25 09:30 RBC 4.59 10^6/uL (3.85-5.65) 05/15/25 09:30 Hgb 13.50 g/dL (11.27-16.99) 05/15/25 09:30 Hct 39.6 % (36-47) 05/15/25 09:30 MCV 86.3 fl (85-98) 05/15/25 09:30 MCH 29.4 pg (27-33) 05/15/25 09:30 MCHC 34.1 g/dL (30-55) 05/15/25 09:30 RDW 13.2 % (12.1-15.1) 05/15/25 09:30 Plt Count 373 10^3/cmm (157-399) 05/15/25 09:30 MPV 10.5 fL (7.4-10.4) H 05/15/25 09:30 Neut % (Auto) 58.4 % 05/15/25 09:30 Lymph % (Auto) 29.6 % 05/15/25 09:30 [place] % (Auto) 7.8 % 05/15/25 09:30 Eos % (Auto) 1.2 % 05/15/25 09:30 Baso % (Auto) 0.7 % 05/15/25 09:30 Neut # (Auto) 8.49 10^3/uL (1.8-7.7) H 05/15/25 09:30 Lymph # (Auto) 4.3 10^3/uL (0.8-4.8) 05/15/25 09:30 [place] # (Auto) 1.1 10^3/uL (0.2-0.9) H 05/15/25 09:30 Eos # (Auto) 0.2 10^3/uL (0.0-0.8) 05/15/25 09:30 Baso # (Auto) 0.1 10^3/uL (0.0-0.1) 05/15/25 09:30 Nucleated RBC % (auto) 0 % 05/15/25 09:30 Nucleated RBCs # 0.0 /100WBC 05/15/25 09:30 Sodium 137 mmol/L (136-145) 05/15/25 09:30 Potassium 3.3 mmol/L (3.5-5.1) L 05/15/25 09:30 Chloride 98 mmol/L (98-107) 05/15/25 09:30 Carbon Dioxide 26 mmol/L (22-29) 05/15/25 09:30 Anion Gap 16.3 (5-19) 05/15/25 09:30 BUN 24 mg/dL (8-23) H 05/15/25 09:30 Creatinine 1.1 mg/dL (0.5-0.9) H 05/15/25 09:30 GFR Calculation 50.2 mL/min (90-130) L 05/15/25 09:30 Glucose 196 mg/dL (65-115) H 05/15/25 09:30 Calculated Osmolality 293 mOsm/kg (285-295) 05/15/25 09:30 Calcium 10.4 mg/dL (8.5-10.5) 05/15/25 09:30 Total Bilirubin 0.3 mg/dL (0.15-1.2) 05/15/25 09:30 AST 74 U/L (0-32) H 05/15/25 09:30 ALT 38 U/L (0-33) H 05/15/25 09:30 Alkaline Phosphatase 69 U/L (35-105) 05/15/25 09:30 Total Protein 6.8 g/dL (6.6-8.7) 05/15/25 09:30 Albumin 4.0 g/dL (3.5-5.2) 05/15/25 09:30 Globulin 2.8 g/dL (1.3-4.6) 05/15/25 09:30 Urine Color Yellow (Yellow) 05/15/25 10:32 Urine Appearance Cloudy (CLEAR) A 05/15/25 10:32 Urine pH 5.5 (5-7) 05/15/25 10:32 Ur Specific [place] 1.017 (1.005-1.030) 05/15/25 10:32 Urine Protein Trace (Negative) A 05/15/25 10:32 Urine Glucose (UA) 3+ (Normal) H 05/15/25 10:32 Urine Ketones Negative (Negative) 05/15/25 10:32 Urine Blood Negative (Negative) 05/15/25 10:32 Urine Nitrate Negative (Negative) 05/15/25 10:32 Urine Bilirubin Negative (Negative) 05/15/25 10:32 Urine Urobilinogen 0.2 mg/dL (Negative) 05/15/25 10:32 Ur Leukocyte Esterase 1+ (Negative) A 05/15/25 10:32 Urine RBC 21-50 /hpf (0-2) H 05/15/25 10:32 Urine WBC 21-50 /hpf (0-5) H 05/15/25 10:32 Ur Squamous Epith Cells 0-5 /hpf (0-5) 05/15/25 10:32 Amorphous Sediment Not Reportable 05/15/25 10:32 Urine Bacteria None seen /hpf (NONE) 05/15/25 10:32 Hyaline Casts 1.21 /lpf 05/15/25 10:32 Urine Yeast 2+ /hpf H 05/15/25 10:32 All radiology interpretation(s) finalized by discharge Discharge Plan Discharge Patient Disposition: Home Clinical Impression: Closed head injury Qualifiers: Encounter type: initial encounter Qualified Code(s): S09.90XA - Unspecified injury of head, initial encounter Chin laceration Qualifiers: Encounter type: initial encounter Qualified Code(s): S01.81XA - Laceration without foreign body of other part of head, initial encounter Fall Qualifiers: Encounter type: initial encounter Qualified Code(s): W19.XXXA - Unspecified fall, initial encounter Condition: Stable Prescriptions: No Action albuterol sulfate 90 mcg/actuation HFA aerosol inhaler 2 puff inhalation Q6H PRN (Reason: Shortness Of Breath) memantine 10 mg tablet 10 mg PO BID Qty: 60 6RF Rx Instructions: Take one tablet twice per day trazodone 50 mg tablet 100 mg PO BEDTIME Qty: 60 6RF Rx Instructions: Take two tablets at bedtime escitalopram oxalate [Lexapro] 10 mg tablet 10 mg PO .morning Qty: 30 3RF Rx Instructions: Take one tablet every morning gabapentin 300 mg capsule 300 mg PO BID Qty: 60 6RF Rx Instructions: Take one capsule twice per day, last dose at 6 pm Rexulti 0.5 mg tablet 0.5 mg PO .3 pm Qty: 30 3RF Rx Instructions: Take one tablet at 3 pm pantoprazole 40 mg tablet,delayed release (DR/EC) 40 mg PO DAILY (DME) insulin syringe-needle U-100 1 mL 30 gauge x 1/2 syringe See Rx Instructions .MEDSUPPLY Qty: 100 12RF Rx Instructions: Use as directed for insulin administration 5 times/day (DME) True Metrix Glucose Test Strip Strip See Rx Instructions .Route Qty: 100 5RF Rx Instructions: As directed. TID propranolol 40 mg tablet 40 mg PO BID Qty: 180 1RF amlodipine 10 mg tablet 10 mg PO .qhs Qty: 90 1RF (DME) Pen [place] for insulin pens, See Rx Instructions .Route .MEDSUPPLY Qty: 100 5RF Rx Instructions: check 3 times daily insulin glargine [Lantus Solostar U-100 Insulin] 100 unit/mL (3 mL) insulin pen 45 unit SUBCUT BID Qty: 30 5RF levothyroxine 75 mcg tablet 75 mcg PO DAILY Qty: 90 0RF fenofibrate nanocrystallized 145 mg tablet See Rx Instructions .ROUTE .COMPLEX Qty: 90 1RF Dose Instruction: TAKE 1 TABLET BY MOUTH EVERY DAY Rx Instructions: TAKE 1 TABLET BY MOUTH EVERY DAY hydrochlorothiazide 12.5 mg tablet See Rx Instructions .ROUTE .COMPLEX Qty: 90 1RF Dose Instruction: TAKE 1 TABLET BY MOUTH EVERY MORNING Rx Instructions: TAKE 1 TABLET BY MOUTH EVERY MORNING lorazepam 1 mg tablet 1 mg PO DAILY PRN (Reason: anxiety) Qty: 30 1RF Rx Instructions: May take one tablet once day as needed for anxiety (DME) blood-glucose meter [True Metrix Glucose Meter] Misc See Rx Instructions .Route Qty: 1 0RF Rx Instructions: As directed. check twice daily losartan [Cozaar] 100 mg tablet 100 mg PO DAILY Qty: 90 1RF sitagliptin phosphate 100 mg tablet 100 mg PO DAILY Qty: 90 1RF insulin lispro 100 unit/mL insulin pen See Rx Instructions .ROUTE .COMPLEX Qty: 15 2RF Dose Instruction: inject 15 units (0.15ml) SUBCUTANEOUSLY THREE TIMES DAILY. FOLLOWING sliding scale. UP TO max of 45 units PER DAY Rx Instructions: inject 15 units (0.15ml) SUBCUTANEOUSLY THREE TIMES DAILY. FOLLOWING sliding scale. UP TO max of 45 units PER DAY Discharge Orders: Discharge ED (Routine); Ordered 05/15/25 Ordered By: Jenaro Irwin Referrals: Amadou Huynh MD [Primary Care Provider, Family Practice] - 4-7 days Discharge Diet: Advance as tolerated Discharge Activity: Resume usual activity Patient Instructions: Laceration (ED), Head Injury (ED), Skin Adhesive Care (ED) Print Language: Turkmen Coding Level of Care Code ED Bail Bond Agent for Renay Whittaker
[2025-05-15 09:54] LABS: Hematocrit 39.6 % (36-47); Hemoglobin 13.50 g/dL (11.27-16.99); Mean Corpuscular HGB Conc 34.1 g/dL (30-55); Mean Corpuscular Hemoglobin 29.4 pg (27-33); Mean Corpuscular Volume 86.3 fl (85-98); Nucleated Red Blood Cells % 0 %; Platelet Count 373 10^3/cmm (157-399); Red Blood Count 4.59 10^6/uL (3.85-5.65); White Blood Count 14.55 10^3/uL (3.29-11.43)
--- OUTSIDE RECORDS SUMMARY | 2025-05-15 09:59 | XMS_ITS | Encounter Summary ---
Author Organization [facility] Address [address] [place] [address] Care Team Providers Care Switchboard Wire Worker Helper Name Role Phone Ria Pascual MD Primary Care Provider [phone]- [phone] Encounter Details Date Type Department Care Team (Latest Contact Info) Description 05/30/2007 Outpatient Historical [facility] Neurology [address] [facility], [facility] [address] [place] [address] Pauline Payton MD [address] [facility] [address] [place] [address] Tension Headache (Primary Dx) Social History Tobacco Use Types Packs/Day Years Used Date Smoking Tobacco: Never Assessed Comments Unknown Sex and Gender Information Value Date Recorded Sex Assigned at Not on file 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
--- OUTSIDE RECORDS SUMMARY | 2025-05-15 09:59 | XMS_ITS | Clinical Summary ---
Author Organization [facility] [employer] [facility] [facility] Address [address] [facility] Attn: Epic Prelude ADT UMESH VALENZUELA [address] Care Team Providers Care Machine Clerical Verifier Name Role Phone Ria Pascual MD Primary Care Provider [phone]- [phone] Allergies Active Allergy Reactions Criticality Noted Date Comments Codeine Unknown 09/05/2009 Meperidine Nausea and Vomiting Low 01/10/2017 Medications desvenlafaxine (PRISTIQ) 100 mg Extended Release 24 hour tablet Take by mouth daily with breakfast. 7 Active traMADoL (ULTRAM) 50 mg tablet Take 1 Tablet (50 mg) by mouth every 6 hours as needed for Pain. 20 Tablet None 7 Active insulin aspart U-100 (NovoLOG ECHO PENFILL) 100 unit/mL cartridge Inject 30 Units by subcutaneous injection 3 times daily with meals. 7 Active divalproex (DEPAKOTE) 250 mg Delayed Release tablet Take 250 mg by mouth 2 times daily. Active canagliflozin (INVOKANA) 300 mg tablet Take 300 mg by mouth daily before breakfast. Active gabapentin (NEURONTIN) 300 mg capsule Take 300 mg by mouth 3 times daily. Active insulin glargine (LANTUS) 100 unit/mL pen syringe Inject 70 Units by subcutaneous injection daily with breakfast. 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 Gender Identity Not on file Sexual Orientation Not on file Last Filed Vital Signs Vital Sign Reading Time Taken Comments Blood Pressure 158/83 01/10/2017 10:44 PM CDT Pulse 95 01/10/2017 9:47 PM CDT Temperature 36.5 C (97.7 F) 01/10/2017 10:44 PM CDT Respiratory Rate 16 01/10/2017 10:44 PM CDT Oxygen Saturation - - Inhaled Oxygen Concentration - - Weight 85.8 kg (189 lb 3.2 oz) 01/10/2017 8:55 P M CDT Height 157.5 cm (5' 2 ) 01/10/2017 8:55 PM CDT Body Mass Index 34.61 01/10/2017 8:55 PM CDT Plan of Treatment Health Maintenance Due Date Last Done Comments HPV/Cotest (21-29) 1983 CERVICAL CANCER SCREENING 1992 HPV/Cotest (30-65) 1992 PAP SMEAR 1992 BREAST CANCER SCREENING 2002 COLORECTAL SCREENING 2007 Colorectal Cancer Screening 2007 FIT-DNA Q 3 years 2007 FIT/FOBT Q 1 year 2007 Flex Sig/CT Colonography Q 5 years 2007 DTAP/TDAP/TD VACCINES (1 - Tdap) 06/09/2007 06/08/20 07 ZOSTER VACCINE (1 of 2) 2012 INFLUENZA VACCINE (#1) 2025 RSV VACCINE (60+ or ) (1 - 1-dose 75+ series) 2037 Care Teams Machine Clerical Verifier Relationship Specialty Start Date End Date Ria Pascual MD [address] [place] [address] PCP - General Family Practice 01/10/17
--- OUTSIDE RECORDS SUMMARY | 2025-05-15 09:59 | XMS_ITS | Clinical Summary ---
Author Organization [facility] Address [address] [facility] [place] [address] Care Team Providers Care Goal Umpire Name Role Phone Ria Pascual MD Primary Care Provider [phone]- [phone] Allergies Active Allergy Reactions Criticality Noted Date Comments Codeine Unknown 09/05/2009 Meperidine Nausea and Vomiting Low 01/10/2017 Medications lorazepam (ATIVAN) 1 mg Oral tablet Take 1 mg by mouth daily. Active propranolol SR 24 hour (INDERAL LA) 120 mg Oral capsule Take 120 mg by mouth daily. Active lisinopril (PRINIVIL) 5 mg Oral tablet Take 5 mg by mouth daily. Active ibuprofen (MOTRIN) 600 mg Oral tablet Take 600 mg by mouth every 6 hours as needed for Pain. Active buPROPion (WELLBUTRIN) 100 mg Oral tablet Take 150 mg by mouth daily. Active desvenlafaxine (PRISTIQ) 100 mg Extended Release 24 hour tablet Take by mouth daily with breakfast. Active gabapentin (NEURONTIN) 300 mg capsule Take 300 mg by mouth 3 times daily. Active canagliflozin (INVOKANA) 300 mg tablet Take 300 mg by mouth daily before breakfast. Active divalproex (DEPAKOTE) 250 mg Delayed Release tablet Take 250 mg by mouth 2 times daily. Active insulin glargine (LANTUS) 100 unit/mL pen syringe Inject 70 Units by subcutaneous injection daily with breakfast. Active insulin aspart (NovoLOG ECHO PENFILL) 100 unit/mL cartridge Inject 30 Units by subcutaneous injection 3 times daily with meals. Active traMADol (ULTRAM) 50 mg tablet Take 1 Tablet (50 mg) by mouth every 6 hours as needed for Pain. 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 Gender Identity Not on file Sexual Orientation Not on file Last Filed Vital Signs Vital Sign Reading Time Taken Comments Blood Pressure 158/83 01/10/2017 10:44 PM CDT Pulse 95 01/10/2017 9:47 PM CDT Temperature 36.5 C (97.7 F) 01/10/2017 10:44 PM CDT Respiratory Rate 16 01/10/2017 10:44 PM CDT Oxygen Saturation 96% 01/10/2017 10:44 PM CDT Inhaled Oxygen Concentration - - Weight 85.8 [...] VACCINES (1 - Tdap) 06/09/2007 06/08/20 07 RSV VACCINE (60+ or ) (1 - Risk 50-74 years 1-dose series) 2012 ZOSTER VACCINE (1 of 2) 2012 INFLUENZA VACCINE (#1) [id number] [place] [address] [place]ID [place] Care Teams Goal Umpire Relationship Specialty Start Date End Date Ria Pascual MD [address] [place] [address] PCP - General Family Practice 01/10/17
--- OUTSIDE RECORDS SUMMARY | 2025-05-15 09:59 | XMS_ITS | Patient Health Record ---
Author Organization [facility] Billing Info Address [address] [place] [address] Support Name Relationship Address Phone Heidi Quintanilla Guarantor Unknown [phone] Reason For Referral No Information Plan Of Treatment No Information Insurance Providers Payer Name Payer Address Payer Phone Subscriber Number Group Number Insured Name Patient Relationship to Insured Coverage Start Date Coverage End Date [place]ICAID [place] [employer] [address] [place], [place] [id number] Heidi Quintanilla Self - patient is the insured 8 8
[2025-05-15 10:19] LABS: Alanine Aminotransferase 38 U/L (0-33); Albumin Level 4.0 g/dL (3.5-5.2); Alkaline Phosphatase 69 U/L (35-105); Anion Gap 16.3 (5-19); Aspartate Amino Transferase 74 U/L (0-32); Blood Urea Nitrogen 24 mg/dL (8-23); Calcium 10.4 mg/dL (8.5-10.5); Carbon Dioxide 26 mmol/L (22-29); Chloride 98 mmol/L (98-107); Creatinine Clr Calc Pharmacy 44.3331; Globulin 2.8 g/dL (1.3-4.6); Glucose 196 mg/dL (65-115); Osmolality Calculated 293 mOsm/kg (285-295); Potassium 3.3 mmol/L (3.5-5.1); Sodium 137 mmol/L (136-145); Total Protein 6.8 g/dL (6.6-8.7)
[2025-05-15 10:46] LABS: Glucose Urine UA 3+ (Normal); Nitrate Urine Negative (Negative); Specific Gravity, Urine 1.017 (1.005-1.030)
[2025-05-15 10:48] VITALS: RESP 16; O2SAT 96
[2025-05-15 10:48] LABS: Add Urine Microscopic? YES
[2025-05-15] MEDS: morphine 4 mg/mL SDV 1 mL IVP (10:48)
[2025-05-15] MEDS: ondansetron 2 mg/ML SDV 2 mL 4 MG IVP (10:48)
[2025-05-15 10:59] LABS: UA Slide Review UA Slide Review Perf
[2025-05-15 11:45] VITALS: BP 124/63; PULSE 84; O2SAT 97
== END 2025-05-15 11:45 | disposition home or self-care (01) ==
PROVIDERS: Emergency Provider Emergency Medicine; PCP Family Medicine
DX: S09.8XXA Other specified injuries of head, initial encounter (principal); S01.81XA Laceration without foreign body of other part of head, initial encounter; W19.XXXA Unspecified fall, initial encounter; Z79.4 Long term (current) use of insulin
CPT/HCPCS: 12011; 70450; 72125; 80053; 81001; 85025; 87086; 96374; 96375; 99285; J2270; J2405

== ENCOUNTER → 2025-06-25 15:47 | Outpatient (BNVA) | payer MEDICAID, SELFPAY ==
[2023-09-03 15:25] VITALS: BP 174/101; BMI 34.3
== END ==
PROVIDERS: PCP Family Medicine; Visit Provider Family Medicine
DX: E11.9 Type 2 diabetes mellitus without complications (principal); E03.9 Hypothyroidism, unspecified
CPT/HCPCS: 80053; 83036; 84439; 84443